=== PATIENT | male | born 1940 | race African-American/Black ===

== ENCOUNTER 2017-07-04 02:13 | Inpatient (IN) | payer MEDICARE, OTHER ==
[~2017-07-04] VITALS: Ht 172.7 cm; Wt 94.3 kg
[~2017-07-04 02:13] MED LIST: AMBIEN5 MG PO; BAYER CHEWABLE81 MG PO; CATAPRES0.3 MG PO; CRESTOR20 MG PO; FERROUS GLUCON324 MG PO; FOLIC ACID1 MG PO; LASIX40 MG PO; LASIX80 MG PO; LEVEMIR100 U/M1 SC; NIFEDIPINE ER90 MG PO; NOVOLIN R100 U/ML SQ; PROTONIX40 MG PO; TRANDATE300 MG PO; ZPAK PO; ZYLOPRIM100 MG PO; ZYRTEC10 MG PO
[2017-07-04] MEDS ORDERED: LANTUS INSULIN10 ML SC (03:15)
[2017-07-04] MEDS ORDERED: HUMULIN R100 U/ML (03:21)
[2017-07-04] MEDS ORDERED: HUMULIN R100 U/ML SC (03:22)
[2017-07-04] MEDS ORDERED: NORMODYNE / TR100 MG PO (03:23)
[2017-07-04 04:00] VITALS: BP 209/96
[2017-07-04 06:30] VITALS: BMI 32.9
[2017-07-04 08:29] VITALS: BP 222/102
[2017-07-04 08:33] LABS: BASOPHILS 0.2 % (0-2); EOSINOPHILS 1.4 % (0-7); HEMATOCRIT 33.2 % (42.0-54.0); HEMOGLOBIN 10.8 g/dL (13.5-17.5); IMMATURE GRANULOCYTES 0.8 % (0-5); LYMPHOCYTES 18.3 % (15-50); MCH 30.8 pg (26.0-34.0); MCHC 32.5 g/dL (31.0-37.0); MCV 94.6 fL (80.0-100.0); MEAN PLATELET VOLUME 10.4 fL (7.4-10.4); MONOCYTES 10.2 % (2-11); NEUTROPHILS 69.1 % (40-80); RBC 3.51 10x6/uL (4.20-6.10); RDW 14.7 % (11.5-14.5); WBC 4.9 10x3/uL (4.8-10.8)
[2017-07-04 08:34] LABS: PLATELET COUNT 175 10x3/uL (130-400)
[2017-07-04 08:49] LABS: ALBUMIN 3.5 g/dL (3.4-5.0); ANION GAP 19.2 mmol/L (8-16); BILIRUBIN - TOTAL 0.41 mg/dL (0.2-1.3); CALCIUM 8.4 mg/dL (8.5-10.1); CARBON DIOXIDE 22.8 mmol/L (21.0-32.0); CREATININE - SERUM 8.8 mg/dL (0.6-1.3); PROTEIN - SERUM 6.7 g/dL (6.4-8.2)
[2017-07-04 11:09] VITALS: BP 232/101
[2017-07-04 14:49] VITALS: BP 226/103
[2017-07-04 16:24] VITALS: BP 208/95
[2017-07-04 17:41] LABS: APPEARANCE HAZY (CLEAR); BILIRUBIN NEGATIVE (NEGATIVE); COLOR YELLOW (YELLOW); GLUCOSE 50 mg/dL (NEGATIVE); KETONE NEGATIVE (NEGATIVE); NITRITE NEGATIVE (NEGATIVE); PROTEIN 3+ mg/dL (NEGATIVE); SPECIFIC GRAVITY 1.005 (1.005-1.020); UROBILINOGEN NORMAL (NORMAL)
[2017-07-04 17:46] LABS: BACTERIA MANY /hpf (NONE SEEN); EPITHELIAL CELLS 0-5 /hpf (0-5); WHITE CELLS - URINE >50 /hpf (0-5)
[2017-07-04 20:30] VITALS: BP 184/75
[2017-07-05 00:30] VITALS: BP 151/74
[2017-07-05 04:00] VITALS: BP 142/55
[2017-07-05 05:36] LABS: BASOPHILS 0.2 % (0-2); EOSINOPHILS 3.3 % (0-7); HEMATOCRIT 28.4 % (42.0-54.0); IMMATURE GRANULOCYTES 0.4 % (0-5); LYMPHOCYTES 35.1 % (15-50); MCHC 31.7 g/dL (31.0-37.0); MCV 94.7 fL (80.0-100.0); MEAN PLATELET VOLUME 10.3 fL (7.4-10.4); MONOCYTES 11.8 % (2-11); NEUTROPHILS 49.2 % (40-80); RDW 14.6 % (11.5-14.5); WBC 4.6 10x3/uL (4.8-10.8)
[2017-07-05 05:37] LABS: PLATELET COUNT 114 10x3/uL (130-400)
[2017-07-05 06:00] LABS: ANION GAP 15.7 mmol/L (8-16); BILIRUBIN - TOTAL 0.35 mg/dL (0.2-1.3); CALCIUM 7.9 mg/dL (8.5-10.1); CARBON DIOXIDE 24.6 mmol/L (21.0-32.0); CREATININE - SERUM 10.9 mg/dL (0.6-1.3); MAGNESIUM - SERUM 1.5 mg/dL (1.8-2.4); PHOSPHOROUS 3.6 mg/dL (2.5-4.9); POTASSIUM - SERUM 4.3 mmol/L (3.5-5.1); PROTEIN - SERUM 6.5 g/dL (6.4-8.2)
[2017-07-05 07:50] VITALS: BP 157/75
[2017-07-05 11:47] VITALS: BP 174/73
[2017-07-05 12:39] VITALS: Ht 172.7 cm; Wt 94.3 kg
[2017-07-05 15:37] VITALS: BP 163/73
[2017-07-05 19:00] VITALS: BP 157/76
[2017-07-06 04:00] VITALS: BP 148/74
[2017-07-06 04:58] LABS: BASOPHILS 0.2 % (0-2); HEMATOCRIT 27.5 % (42.0-54.0); HEMOGLOBIN 8.7 g/dL (13.5-17.5); IMMATURE GRANULOCYTES 0.2 % (0-5); LYMPHOCYTES 32.5 % (15-50); MCH 30.5 pg (26.0-34.0); MCHC 31.6 g/dL (31.0-37.0); MCV 96.5 fL (80.0-100.0); MEAN PLATELET VOLUME 10.1 fL (7.4-10.4); MONOCYTES 12.6 % (2-11); NEUTROPHILS 48.5 % (40-80); RBC 2.85 10x6/uL (4.20-6.10); RDW 14.9 % (11.5-14.5); WBC 4.2 10x3/uL (4.8-10.8)
[2017-07-06 05:06] LABS: PLATELET COUNT 195 10x3/uL (130-400)
[2017-07-06 05:40] LABS: ALBUMIN 2.9 g/dL (3.4-5.0); ANION GAP 16.8 mmol/L (8-16); BILIRUBIN - TOTAL 0.43 mg/dL (0.2-1.3); CALCIUM 7.5 mg/dL (8.5-10.1); CARBON DIOXIDE 23.2 mmol/L (21.0-32.0); CREATININE - SERUM 12.8 mg/dL (0.6-1.3); PHOSPHOROUS 3.9 mg/dL (2.5-4.9); PROTEIN - SERUM 6.1 g/dL (6.4-8.2)
[2017-07-06 08:02] VITALS: BP 161/67
[2017-07-06 15:38] VITALS: BP 142/66
[2017-07-06 21:47] VITALS: BP 164/72
[2017-07-07 01:54] VITALS: BP 147/76
[2017-07-07 05:27] LABS: BASOPHILS 0.5 % (0-2); EOSINOPHILS 6.2 % (0-7); HEMATOCRIT 28.8 % (42.0-54.0); HEMOGLOBIN 9.3 g/dL (13.5-17.5); IMMATURE GRANULOCYTES 0.2 % (0-5); LYMPHOCYTES 32.9 % (15-50); MCH 31.1 pg (26.0-34.0); MCHC 32.3 g/dL (31.0-37.0); MCV 96.3 fL (80.0-100.0); MEAN PLATELET VOLUME 9.8 fL (7.4-10.4); MONOCYTES 13.4 % (2-11); NEUTROPHILS 46.8 % (40-80); PLATELET COUNT 209 10x3/uL (130-400); RBC 2.99 10x6/uL (4.20-6.10); RDW 14.7 % (11.5-14.5)
[2017-07-07 05:53] VITALS: BP 141/48
[2017-07-07 06:10] LABS: BILIRUBIN - TOTAL 0.43 mg/dL (0.2-1.3); CALCIUM 7.9 mg/dL (8.5-10.1); CARBON DIOXIDE 28.9 mmol/L (21.0-32.0); PHOSPHOROUS 3.9 mg/dL (2.5-4.9); PROTEIN - SERUM 6.5 g/dL (6.4-8.2)
[2017-07-07 06:22] LABS: ANION GAP 12.4 mmol/L (8-16); CREATININE - SERUM 9.4 mg/dL (0.6-1.3); POTASSIUM - SERUM 3.3 mmol/L (3.5-5.1)
[2017-07-07 08:11] VITALS: BP 147/67
[2017-07-07 11:44] VITALS: BP 132/78
[2017-07-07 15:24] VITALS: BP 135/84
[2017-07-07 19:00] VITALS: BP 170/64
[2017-07-08 04:52] VITALS: BP 157/64
[2017-07-08 05:45] LABS: ALBUMIN 3.2 g/dL (3.4-5.0); ANION GAP 15.2 mmol/L (8-16); BILIRUBIN - TOTAL 0.4 mg/dL (0.2-1.3); CALCIUM 7.6 mg/dL (8.5-10.1); CARBON DIOXIDE 26.2 mmol/L (21.0-32.0); CREATININE - SERUM 11.6 mg/dL (0.6-1.3); PHOSPHOROUS 4.2 mg/dL (2.5-4.9); POTASSIUM - SERUM 3.4 mmol/L (3.5-5.1); PROTEIN - SERUM 6.8 g/dL (6.4-8.2)
[2017-07-08 05:46] LABS: BASOPHILS 0.8 % (0-2); HEMATOCRIT 29.8 % (42.0-54.0); HEMOGLOBIN 9.8 g/dL (13.5-17.5); IMMATURE GRANULOCYTES 0.3 % (0-5); LYMPHOCYTES 32.2 % (15-50); MCH 31.1 pg (26.0-34.0); MCHC 32.9 g/dL (31.0-37.0); MCV 94.6 fL (80.0-100.0); MEAN PLATELET VOLUME 9.9 fL (7.4-10.4); MONOCYTES 17.5 % (2-11); NEUTROPHILS 42.2 % (40-80); PLATELET COUNT 226 10x3/uL (130-400); RBC 3.15 10x6/uL (4.20-6.10); RDW 14.5 % (11.5-14.5); WBC 3.9 10x3/uL (4.8-10.8)
[2017-07-08 08:19] VITALS: BP 162/78
[2017-07-08 15:44] VITALS: BP 158/82
[2017-07-08 20:53] VITALS: BP 146/69
[2017-07-09 02:35] VITALS: BP 138/71
[2017-07-09 06:08] VITALS: BP 148/67
[2017-07-09 06:28] LABS: BASOPHILS 0.6 % (0-2); EOSINOPHILS 3.4 % (0-7); HEMATOCRIT 30.9 % (42.0-54.0); HEMOGLOBIN 10.1 g/dL (13.5-17.5); IMMATURE GRANULOCYTES 0.2 % (0-5); LYMPHOCYTES 18.7 % (15-50); MCH 30.7 pg (26.0-34.0); MCHC 32.7 g/dL (31.0-37.0); MCV 93.9 fL (80.0-100.0); MEAN PLATELET VOLUME 9.6 fL (7.4-10.4); NEUTROPHILS 61.1 % (40-80); PLATELET COUNT 206 10x3/uL (130-400); RBC 3.29 10x6/uL (4.20-6.10); RDW 14.2 % (11.5-14.5); WBC 4.7 10x3/uL (4.8-10.8)
[2017-07-09 06:43] LABS: ANION GAP 14.9 mmol/L (8-16); BILIRUBIN - TOTAL 0.4 mg/dL (0.2-1.3); CALCIUM 7.8 mg/dL (8.5-10.1); CARBON DIOXIDE 27.6 mmol/L (21.0-32.0); PHOSPHOROUS 4.1 mg/dL (2.5-4.9); POTASSIUM - SERUM 3.5 mmol/L (3.5-5.1); PROTEIN - SERUM 6.9 g/dL (6.4-8.2)
[2017-07-09 06:44] LABS: CREATININE - SERUM 8.6 mg/dL (0.6-1.3)
[2017-07-09 07:51] VITALS: BP 144/69
[2017-07-09 15:30] VITALS: BP 142/66
[2017-07-09 19:00] VITALS: BP 189/81
[2017-07-10 04:00] VITALS: BP 186/77
[2017-07-10 07:02] LABS: BASOPHILS 1.1 % (0-2); EOSINOPHILS 6.1 % (0-7); HEMATOCRIT 29.7 % (42.0-54.0); HEMOGLOBIN 9.7 g/dL (13.5-17.5); IMMATURE GRANULOCYTES 0.2 % (0-5); LYMPHOCYTES 30.9 % (15-50); MCH 30.6 pg (26.0-34.0); MCHC 32.7 g/dL (31.0-37.0); MCV 93.7 fL (80.0-100.0); MEAN PLATELET VOLUME 9.9 fL (7.4-10.4); MONOCYTES 14.4 % (2-11); NEUTROPHILS 47.3 % (40-80); PLATELET COUNT 226 10x3/uL (130-400); RBC 3.17 10x6/uL (4.20-6.10); RDW 14.4 % (11.5-14.5); WBC 4.7 10x3/uL (4.8-10.8)
[2017-07-10 07:20] LABS: ANION GAP 18.3 mmol/L (8-16); BILIRUBIN - TOTAL 0.46 mg/dL (0.2-1.3); CALCIUM 7.5 mg/dL (8.5-10.1); CARBON DIOXIDE 25.1 mmol/L (21.0-32.0); PHOSPHOROUS 4.4 mg/dL (2.5-4.9); POTASSIUM - SERUM 3.4 mmol/L (3.5-5.1); PROTEIN - SERUM 6.8 g/dL (6.4-8.2)
[2017-07-10 07:24] LABS: CREATININE - SERUM 10.8 mg/dL (0.6-1.3)
[2017-07-10 09:50] VITALS: BP 168/66
[2017-07-10 15:58] VITALS: BP 175/75
[2017-07-10 20:40] VITALS: BP 172/74
[2017-07-11 00:15] VITALS: BP 156/69
[2017-07-11 05:09] VITALS: BP 157/73
[2017-07-11 07:06] LABS: BASOPHILS 0.9 % (0-2); EOSINOPHILS 3.4 % (0-7); HEMOGLOBIN 9.5 g/dL (13.5-17.5); IMMATURE GRANULOCYTES 0.2 % (0-5); LYMPHOCYTES 33.5 % (15-50); MCH 30.8 pg (26.0-34.0); MCHC 32.8 g/dL (31.0-37.0); MCV 94.2 fL (80.0-100.0); MEAN PLATELET VOLUME 9.9 fL (7.4-10.4); MONOCYTES 16.4 % (2-11); NEUTROPHILS 45.6 % (40-80); PLATELET COUNT 217 10x3/uL (130-400); RBC 3.08 10x6/uL (4.20-6.10); RDW 14.6 % (11.5-14.5); WBC 4.4 10x3/uL (4.8-10.8)
[2017-07-11 07:24] LABS: ANION GAP 13.7 mmol/L (8-16); BILIRUBIN - TOTAL 0.45 mg/dL (0.2-1.3); CALCIUM 7.8 mg/dL (8.5-10.1); CARBON DIOXIDE 28.8 mmol/L (21.0-32.0); CREATININE - SERUM 8.5 mg/dL (0.6-1.3); POTASSIUM - SERUM 3.5 mmol/L (3.5-5.1); PROTEIN - SERUM 6.2 g/dL (6.4-8.2)
[2017-07-11 07:41] VITALS: BP 158/75
[2017-07-11 11:37] VITALS: BP 151/68
[2017-07-11 15:49] VITALS: BP 158/62
[2017-07-11 20:58] VITALS: BP 159/70
[2017-07-12 01:12] VITALS: BP 162/67
[2017-07-12 05:58] VITALS: BP 143/66
[2017-07-12 06:57] LABS: BASOPHILS 1.4 % (0-2); EOSINOPHILS 5.1 % (0-7); HEMATOCRIT 29.3 % (42.0-54.0); HEMOGLOBIN 9.5 g/dL (13.5-17.5); IMMATURE GRANULOCYTES 0.2 % (0-5); LYMPHOCYTES 28.2 % (15-50); MCH 30.5 pg (26.0-34.0); MCHC 32.4 g/dL (31.0-37.0); MCV 94.2 fL (80.0-100.0); MEAN PLATELET VOLUME 10.2 fL (7.4-10.4); MONOCYTES 14.7 % (2-11); NEUTROPHILS 50.4 % (40-80); PLATELET COUNT 233 10x3/uL (130-400); RBC 3.11 10x6/uL (4.20-6.10); RDW 14.7 % (11.5-14.5); WBC 4.2 10x3/uL (4.8-10.8)
[2017-07-12 07:09] LABS: ALBUMIN 3.1 g/dL (3.4-5.0); ANION GAP 15.8 mmol/L (8-16); BILIRUBIN - TOTAL 0.49 mg/dL (0.2-1.3); CALCIUM 7.5 mg/dL (8.5-10.1); CARBON DIOXIDE 27.6 mmol/L (21.0-32.0); CREATININE - SERUM 10.5 mg/dL (0.6-1.3); POTASSIUM - SERUM 3.4 mmol/L (3.5-5.1); PROTEIN - SERUM 6.9 g/dL (6.4-8.2)
[2017-07-12 08:01] VITALS: BP 135/64
[2017-07-12 11:27] VITALS: BP 132/60
[2017-07-12] MEDS ORDERED: FLAGYL500 MG PO (13:33)
== END 2017-07-12 15:58 | disposition home or self-care (01) | DRG 391 ==
LOC: D.M2 02:13 → D.SDCHOLD 07-05 12:55 → D.M2 07-12 15:58
PROVIDERS: Internal Medicine
PROC: 5A1D70Z Performance of Urinary Filtration, Intermittent, Less than 6 Hours Per Day (ICD-10-PCS; principal; 2017-07-06)
DX: K52.9 Noninfective gastroenteritis and colitis, unspecified (principal); N18.6 End stage renal disease; I12.0 Hypertensive chronic kidney disease with stage 5 chronic kidney disease or end stage renal disease; N30.90 Cystitis, unspecified without hematuria; E11.22 Type 2 diabetes mellitus with diabetic chronic kidney disease; Z99.2 Dependence on renal dialysis; D63.1 Anemia in chronic kidney disease

== ENCOUNTER 2017-08-01 23:34 | Inpatient (IN) | payer MEDICARE, OTHER ==
[~2017-08-01] VITALS: Ht 172.7 cm; Wt 82.4 kg
[~2017-08-01 23:34] MED LIST changes: +FLAGYL500 MG PO; +HUMULIN R100 U/ML; +HUMULIN R100 U/ML SC; +LANTUS INSULIN10 ML SC; +NORMODYNE / TR100 MG PO
[2017-08-02] VITALS (7 sets, daily range): BP systolic 162–175; BP diastolic 62–80; Ht 172.7 cm; Wt 82.4 kg
[2017-08-02 04:33] LABS: BASOPHILS 0.5 % (0-2); EOSINOPHILS 4.1 % (0-7); HEMATOCRIT 34.3 % (42.0-54.0); HEMOGLOBIN 11.3 g/dL (13.5-17.5); IMMATURE GRANULOCYTES 0.3 % (0-5); LYMPHOCYTES 21.4 % (15-50); MCH 32.1 pg (26.0-34.0); MCHC 32.9 g/dL (31.0-37.0); MCV 97.4 fL (80.0-100.0); MEAN PLATELET VOLUME 10.6 fL (7.4-10.4); MONOCYTES 9.6 % (2-11); NEUTROPHILS 64.1 % (40-80); PLATELET COUNT 193 10x3/uL (130-400); RBC 3.52 10x6/uL (4.20-6.10); RDW 15.1 % (11.5-14.5); WBC 5.9 10x3/uL (4.8-10.8)
[2017-08-02 05:09] LABS: ALBUMIN 3.2 g/dL (3.4-5.0); ANION GAP 15.9 mmol/L (8-16); BILIRUBIN - TOTAL 0.6 mg/dL (0.2-1.3); CALCIUM 9.7 mg/dL (8.5-10.1); CARBON DIOXIDE 28.5 mmol/L (21.0-32.0); CREATININE - SERUM 10.7 mg/dL (0.6-1.3); POTASSIUM - SERUM 4.4 mmol/L (3.5-5.1); PROTEIN - SERUM 7.7 g/dL (6.4-8.2); TROPONIN-I 0.035 ng/mL (0.000-0.060)
[2017-08-02 12:52] LABS: TROPONIN-I 0.058 ng/mL (0.000-0.060)
[2017-08-02 20:31] LABS: TROPONIN-I 0.079 ng/mL (0.000-0.060)
[2017-08-03] VITALS: BP 142/66
[2017-08-03 04:00] VITALS: BP 164/62
[2017-08-03 06:23] LABS: BASOPHILS 0.1 % (0-2); EOSINOPHILS 3.5 % (0-7); HEMATOCRIT 36.8 % (42.0-54.0); HEMOGLOBIN 11.8 g/dL (13.5-17.5); IMMATURE GRANULOCYTES 0.3 % (0-5); LYMPHOCYTES 5.3 % (15-50); MCH 31.6 pg (26.0-34.0); MCHC 32.1 g/dL (31.0-37.0); MCV 98.7 fL (80.0-100.0); MEAN PLATELET VOLUME 10.7 fL (7.4-10.4); MONOCYTES 5.4 % (2-11); NEUTROPHILS 85.4 % (40-80); PLATELET COUNT 182 10x3/uL (130-400); RBC 3.73 10x6/uL (4.20-6.10); RDW 15.5 % (11.5-14.5)
[2017-08-03 06:26] LABS: WBC 9.6 10x3/uL (4.8-10.8)
[2017-08-03 06:35] LABS: INR 1.22 (0.85-1.17)
[2017-08-03 06:55] LABS: ANION GAP 19.4 mmol/L (8-16); BILIRUBIN - TOTAL 0.9 mg/dL (0.2-1.3); CALCIUM 9.1 mg/dL (8.5-10.1); CARBON DIOXIDE 24.6 mmol/L (21.0-32.0); PHOSPHOROUS 3.7 mg/dL (2.5-4.9); PROTEIN - SERUM 7.6 g/dL (6.4-8.2)
[2017-08-03 06:57] LABS: CREATININE - SERUM 13.4 mg/dL (0.6-1.3)
[2017-08-03 08:06] VITALS: BP 149/70
[2017-08-03 13:49] VITALS: BP 153/72
[2017-08-03 16:40] VITALS: BP 154/67
[2017-08-03 21:04] VITALS: BP 142/66
[2017-08-04 01:08] VITALS: BP 133/57
[2017-08-04 05:32] VITALS: BP 135/64
[2017-08-04 06:40] LABS: BASOPHILS 0.2 % (0-2); EOSINOPHILS 7.6 % (0-7); HEMATOCRIT 35.7 % (42.0-54.0); HEMOGLOBIN 11.4 g/dL (13.5-17.5); IMMATURE GRANULOCYTES 0.2 % (0-5); LYMPHOCYTES 10.7 % (15-50); MCH 31.7 pg (26.0-34.0); MCHC 31.9 g/dL (31.0-37.0); MCV 99.2 fL (80.0-100.0); MEAN PLATELET VOLUME 10.9 fL (7.4-10.4); NEUTROPHILS 74.3 % (40-80); PLATELET COUNT 195 10x3/uL (130-400); RDW 15.3 % (11.5-14.5); WBC 8.4 10x3/uL (4.8-10.8)
[2017-08-04 06:53] LABS: ANION GAP 19.8 mmol/L (8-16); CALCIUM 8.8 mg/dL (8.5-10.1); CARBON DIOXIDE 24.8 mmol/L (21.0-32.0); POTASSIUM - SERUM 4.6 mmol/L (3.5-5.1)
[2017-08-04 07:55] VITALS: BP 138/50
[2017-08-04 11:27] VITALS: BP 137/64
[2017-08-04 15:12] VITALS: BP 110/68
[2017-08-04 20:28] VITALS: BP 159/73
[2017-08-05 01:41] VITALS: BP 156/76
[2017-08-05 05:16] VITALS: BP 144/67
[2017-08-05 06:54] LABS: BASOPHILS 0.5 % (0-2); EOSINOPHILS 7.7 % (0-7); HEMATOCRIT 32.7 % (42.0-54.0); HEMOGLOBIN 10.8 g/dL (13.5-17.5); IMMATURE GRANULOCYTES 0.2 % (0-5); LYMPHOCYTES 21.5 % (15-50); MCH 31.8 pg (26.0-34.0); MEAN PLATELET VOLUME 11.2 fL (7.4-10.4); MONOCYTES 11.4 % (2-11); NEUTROPHILS 58.7 % (40-80); PLATELET COUNT 169 10x3/uL (130-400); WBC 6.3 10x3/uL (4.8-10.8)
[2017-08-05 06:55] LABS: MCV 96.2 fL (80.0-100.0)
[2017-08-05 06:59] LABS: CALCIUM 8.5 mg/dL (8.5-10.1); CARBON DIOXIDE 21.6 mmol/L (21.0-32.0); CREATININE - SERUM 15.9 mg/dL (0.6-1.3); PHOSPHOROUS 4.6 mg/dL (2.5-4.9); POTASSIUM - SERUM 4.6 mmol/L (3.5-5.1)
[2017-08-05 09:50] VITALS: BP 156/75
[2017-08-05 17:27] VITALS: BP 160/75
[2017-08-05 21:06] VITALS: BP 183/86
[2017-08-06 00:58] VITALS: BP 162/54
[2017-08-06 04:00] VITALS: BP 140/70
[2017-08-06 06:59] LABS: BASOPHILS 0.7 % (0-2); EOSINOPHILS 5.5 % (0-7); HEMATOCRIT 33.5 % (42.0-54.0); HEMOGLOBIN 11.1 g/dL (13.5-17.5); IMMATURE GRANULOCYTES 0.2 % (0-5); LYMPHOCYTES 31.3 % (15-50); MCH 31.6 pg (26.0-34.0); MCHC 33.1 g/dL (31.0-37.0); MCV 95.4 fL (80.0-100.0); MEAN PLATELET VOLUME 11.3 fL (7.4-10.4); MONOCYTES 10.6 % (2-11); NEUTROPHILS 51.7 % (40-80); PLATELET COUNT 175 10x3/uL (130-400); RBC 3.51 10x6/uL (4.20-6.10); RDW 14.7 % (11.5-14.5)
[2017-08-06 07:19] LABS: ANION GAP 18.6 mmol/L (8-16); CALCIUM 8.6 mg/dL (8.5-10.1); CARBON DIOXIDE 24.1 mmol/L (21.0-32.0); PHOSPHOROUS 3.7 mg/dL (2.5-4.9)
[2017-08-06 07:20] LABS: CREATININE - SERUM 10.1 mg/dL (0.6-1.3); POTASSIUM - SERUM 3.7 mmol/L (3.5-5.1)
[2017-08-06 07:23] LABS: WBC 4.4 10x3/uL (4.8-10.8)
[2017-08-06 08:48] VITALS: BP 130/55
[2017-08-06] MEDS ORDERED: CARAFATE1 G/10 ML PO (10:15)
[2017-08-06] MEDS ORDERED: LEVAQUIN250 MG PO (10:15)
[2017-08-06] MEDS ORDERED: PROTONIX40 MG PO (10:16)
[2017-08-06] MEDS ORDERED: KEPPRA XR500 MG PO (10:18)
[2017-08-06 11:38] VITALS: BP 166/70
== END 2017-08-06 15:33 | disposition home health service (06) | DRG 377 ==
LOC: D.M2 23:34
PROVIDERS: Internal Medicine; Internal Medicine Gastroenterology; Internal Medicine Nephrology
PROC: 5A1D70Z Performance of Urinary Filtration, Intermittent, Less than 6 Hours Per Day (ICD-10-PCS; principal; 2017-08-03 12:30)
PROC: 0DB58ZX Excision of Esophagus, Via Natural or Artificial Opening Endoscopic, Diagnostic (ICD-10-PCS; 2017-08-04)
PROC: 0DB78ZX Excision of Stomach, Pylorus, Via Natural or Artificial Opening Endoscopic, Diagnostic (ICD-10-PCS; 2017-08-04)
PROC: 0D758ZZ Dilation of Esophagus, Via Natural or Artificial Opening Endoscopic (ICD-10-PCS; 2017-08-04)
DX: K25.4 Chronic or unspecified gastric ulcer with hemorrhage (principal); N18.6 End stage renal disease; J18.9 Pneumonia, unspecified organism; I12.0 Hypertensive chronic kidney disease with stage 5 chronic kidney disease or end stage renal disease; E11.22 Type 2 diabetes mellitus with diabetic chronic kidney disease; Z99.2 Dependence on renal dialysis; R56.9 Unspecified convulsions; R13.10 Dysphagia, unspecified; K22.2 Esophageal obstruction; Z87.891 Personal history of nicotine dependence

== ENCOUNTER 2017-08-18 15:12 | Inpatient (IN) | payer MEDICARE, OTHER ==
[~2017-08-18] VITALS: Ht 172.7 cm; Wt 84.9 kg
--- NOTE | ~2017-08-18 | PN ---
PATIENT:KAREEM KOROMA MEDICAL RECORD: [id number] LOCATION:[facility] ADMISSION DATE: 08/18/17 PROGRESS NOTE DATE OF SERVICE: 08/24/2017 SUBJECTIVE: No new complaint. OBJECTIVE: The patient remains confused, but he is not exhibiting hallucinosis. Overall, he is much calmer. He appears to be tolerating medication well. On exam, mood is pleasant and euthymic. Affect is somewhat reserved. Speech is tangential. Content of thought is negative for overt psychosis. Sensorium is unchanged. ASSESSMENT: No change in diagnosis. PLAN: 1. Continue current medications. 2. Continue supportive therapy. TRANSINT:[id number] Voice Confirmation ID: [id number] DOCUMENT ID: [id number] DEMETRIA SCHULER III, MD at 0831 CC: [id number] DICTATION DATE: 08/24/17 1126 GOLD LEAF GILDER: 08/24/17 1202 ADM IN [address] [place] [address]
--- NOTE | ~2017-08-18 | PN ---
PATIENT:KAREEM KOROMA MEDICAL RECORD: [id number] LOCATION:[facility]l ADMISSION DATE: 08/18/17 PROGRESS NOTE DATE OF SERVICE: 08/25/2017 SUBJECTIVE: No new complaint is noted with the exception of the fact that the patient thinks that some people do not like him. OBJECTIVE: The patient did have a good visit with his family. He continues to have somewhat poor sleep. He is tolerating dialysis well. Staff report fairly good behavior. On exam, mood is slightly anxious and worried. Affect is bland. Speech is somewhat terse and low in volume. Content of thought shows very mild paranoid ideation. Sensorium shows no change. ASSESSMENT: No change in diagnosis. PLAN: 1. Increase trazodone to 100 mg at bedtime. 2. Maintain other medications. 3. Continue supportive therapy. TRANSINT:[id number] Voice Confirmation ID: [id number] DOCUMENT ID: [id number] DEMETRIA SCHULER III, MD at 1051 CC: [id number] DICTATION DATE: 08/25/17 1204 SURVEY ENGINEER: 08/25/17 1312 ADM IN [facility] [address] [id number]
--- NOTE | ~2017-08-18 | PN ---
PATIENT:KAREEM KOROMA MEDICAL RECORD: [id number] LOCATION:[facility]l ADMISSION DATE: 08/18/17 PROGRESS NOTE DATE OF SERVICE: 08/21/2017 SUBJECTIVE: The patient's case was discussed with staff. He has no new complaint. OBJECTIVE: The patient is paranoid and somatic. He is not sleeping well. Yesterday, he had dialysis and after half hour of dialysis became agitated and paranoid and it was discontinued. ASSESSMENT: No change in diagnoses. PLAN: Supportive and educational interventions were made. Long-term prognosis is guarded. I am going to treat the patient with low dose of trazodone to assist with sleep consolidation. TRANSINT:[id number] Voice Confirmation ID: [id number] DOCUMENT ID: [id number] RAPHAEL HERNANDEZ MD at 1844 CC: [id number] DICTATION DATE: 08/21/17 1101 HEAVY MACHINERY ASSEMBLER: 08/22/17 0037 ADM IN [facility] [address] [id number]
--- NOTE | ~2017-08-18 | PN ---
PATIENT:KAREEM KOROMA MEDICAL RECORD: [id number] LOCATION:[facility]l ADMISSION DATE: 08/18/17 PROGRESS NOTE DATE OF SERVICE: 08/23/2017 SUBJECTIVE: The patient's case was discussed with staff. He has no new complaint. OBJECTIVE: The patient is somewhat paranoid, but is allowing technicians to dialyze him. He is taking Haldol 2 mg a day. Although there has not been much improvement in his psychotic symptoms, he is tolerating this medicine well and at least he is more cooperative, so I am optimistic that it is having some beneficial effect and I am reluctant to more aggressively titrate it upward for fear of precipitating side effects. TRANSINT:[id number] Voice Confirmation ID: [id number] DOCUMENT ID: [id number] RAPHAEL HERNANDEZ MD at 1016 CC: [id number] DICTATION DATE: 08/23/17 190 SAW STRAIGHTENER: 08/24/17 0322 ADM IN [facility] [address] [place] [address]
--- NOTE | ~2017-08-18 | PN ---
PATIENT:KAREEM KOROMA MEDICAL RECORD: [id number] LOCATION:[facility] Morel ADMISSION DATE: 08/18/17 PROGRESS NOTE DATE OF SERVICE: 08/31/2017 SUBJECTIVE: The patient does not offer a new complaint. OBJECTIVE: The patient has continued to be variable in receiving his medications. At times, he refuses; and at times, he is compliant. He is noted to be considerably more drowsy over the last 48 hours. He did eat well last night, but not very well this morning. On exam, mood is euthymic. Affect is constricted. Speech is low in volume. Overall level of consciousness is somewhat obtunded. Content of thought is positive for nonspecific paranoid ideation. Sensorium shows no change. ASSESSMENT: No change in diagnosis. PLAN: 1. Reduce Risperdal to 0.25 mg twice a day. 2. Maintain other medications. 3. Continue supportive therapy. TRANSINT:[id number] Voice Confirmation ID: [id number] DOCUMENT ID: [id number] DEMETRIA SCHULER III, MD at 1017 CC: [id number] DICTATION DATE: 08/31/17 1029 LAND MANAGER: 08/31/17 1239 ADM IN [facility] [address] [place] [address]
--- NOTE | ~2017-08-18 | PN ---
PATIENT:KAREEM KOROMA MEDICAL RECORD: [id number] LOCATION:[facility]Y Morel ADMISSION DATE: 08/18/17 PROGRESS NOTE DATE OF SERVICE: 08/27/2017 SUBJECTIVE: The patient again states that "nobody likes me here." OBJECTIVE: Staff reports the patient continues to be paranoid. He frequently refuses medications. They also note that when the family is around, he portrays himself as being much more ill than he does at other times. On exam, the patient's mood is somewhat anxious and frightened. Affect is constricted. Speech is low in volume. Content of thought remains positive for paranoid ideation. Sensorium shows no change. ASSESSMENT: No change in diagnosis. PLAN: 1. Strongly encouraged to respond to and accept treatment. 2. Add Risperdal 0.5 mg b.i.d. for paranoid ideation. 3. Continue other medications. 4. Continue supportive therapy. TRANSINT:[id number] Voice Confirmation ID: [id number] DOCUMENT ID: [id number] DEMETRIA SCHULER III, MD at 0703 CC: [id number] DICTATION DATE: 08/27/17 1000 PLATEN GRINDER: 08/27/17 1112 ADM IN [facility] [address] [place] [address]
--- NOTE | ~2017-08-18 | PN ---
PATIENT:KAREEM KOROMA MEDICAL RECORD: [id number] LOCATION:LINDSAY Morel ADMISSION DATE: 08/18/17 PROGRESS NOTE DATE OF SERVICE: 09/01/2017 SUBJECTIVE: No new complaint. OBJECTIVE: The patient has continued to do well over the last 24 hours. No further agitation. He has been accepted by [facility] in [place]. On exam, mood is euthymic. Affect is bland. Speech is somewhat low in volume and rather terse. Content of thought focuses on somatic concerns only. Sensorium is unchanged. ASSESSMENT: No change in diagnosis. PLAN: 1. Continue current medication and other treatment plan. 2. Anticipate discharge tomorrow. TRANSINT:[id number] Voice Confirmation ID: [id number] DOCUMENT ID: [id number] DEMETRIA SCHULER III, MD at 2052 CC: [id number] DICTATION DATE: 09/01/17 1051 EDITOR FARM JOURNAL: 09/01/17 1119 ADM IN [address] [place] [address]
--- NOTE | ~2017-08-18 | PN ---
PATIENT:KAREEM KOROMA MEDICAL RECORD: [id number] LOCATION:LINDSAY Morel ADMISSION DATE: 08/18/17 PROGRESS NOTE DATE OF SERVICE: 08/26/2017 SUBJECTIVE: No new complaint. OBJECTIVE: The patient did sleep much better last night after receiving trazodone. He has been calm and cooperative this morning. On exam, mood is euthymic. Affect is reserved. Speech is low in volume. Content of thought negative for overt psychosis. Sensorium unchanged. ASSESSMENT: No change in diagnosis. PLAN: 1. Continue current medication. 2. Continue supportive therapy. TRANSINT:[id number] Voice Confirmation ID: [id number] DOCUMENT ID: [id number] DEMETRIA SCHULER III, MD at 0758 CC: [id number] DICTATION DATE: 08/26/17 1139 REUSE TECHNICIAN: 08/26/17 1155 ADM IN [facility] [address] [place] [address]
--- NOTE | ~2017-08-18 | PSY ---
PATIENT NAME:KAREEM KOROMA MEDICAL RECORD: [id number] : 44 LOCATION:[facility]SAY Morel1 ADMISSION DATE: 08/18/17 ACCOUNT: [id number] PSYCHIATRIC EVALUATION DATE OF EVALUATION: 08/19/17 Initial Psychiatric Workup IDENTIFYING DATA: This is the first [facility] admission and as far as can be determined, the first psychiatric admission in his lifetime for this 76-year-old -English male. HISTORY OF PRESENT ILLNESS: This patient was transferred from the Emergency Department at [facility] [place] Available history at that time indicated that the patient had been refusing his medications and was showing severe confusion and agitation. He was having active auditory and visual hallucinations according to family and was extremely paranoid. At the time of the admission here, the patient continued to give evidence of hallucinations. He stated that he saw the devil and was yelling for the devil to get away from him. The patient did receive p.r.n. haloperidol for control of his agitation. As far as can be determined, there has not been a previous psychiatric hospitalization. There is some mention of dementia in the previous medical record, but this is not well documented. The patient has not been taking any kind of routine psychiatric medication according to the current medical record. PAST MEDICAL HISTORY: Significant for multiple medical problems including end-stage renal disease. The patient is on hemodialysis. He also has chronic hypertension, type 2 diabetes, and coronary artery disease. He has been admitted recently for chest pain. He also had a recent bout of colitis and coffee-ground emesis. He was hospitalized at [place], both in June and in July of this year under the care of Dr. Farr. MEDICATION: At the time of admission included Procardia XL 90 mg twice a day, Keppra XR 500 mg twice a day (the patient did have a seizure during dialysis on his last admission and subsequently Keppra was started. CT scan of the head was unremarkable), Normodyne 100 mg b.i.d., Lantus insulin 10 units b.i.d., folic acid 1 mg daily, calcium acetate 667 mg 3 times a day, Carafate, Protonix 40 mg twice a day, Catapres 0.3 mg t.i.d. FAMILY HISTORY: Negative for psychiatric illness. Both parents did have diabetes. SOCIAL HISTORY: No history of drug or alcohol abuse. The patient is a nonsmoker. He is . He has been a [facility] resident in the past evidently, but it is not certain that he is a resident of a fpc at the present time. ALLERGIES: INCLUDE COLCHICINE. MENTAL STATUS: On exam this morning, the patient is very pleasant. He is oriented to person and the fact that he is in [place] at [facility]. He is not correctly oriented as to time. Affect is well controlled. Speech is rather terse and very low in volume. Content of thought is positive for recent psychotic symptoms, but hallucinosis is not evident at the time of the examination. Sensorium testing as described above. Remote recall is fair. Intermediate and short-term recall as well as concentration are significantly impaired. DIAGNOSTIC IMPRESSION: AXIS I: Acute encephalopathy -- rule out dementia. AXIS II: No diagnosis. AXIS III: Coronary artery disease, hypertension, end-stage renal disease, type 2 diabetes, history of gout, history of GI bleed. AXIS IV: Severe. AXIS V: 38. PLAN: 1. The patient is admitted for further medical and psychiatric workup. Nephrology will be consulted to continue dialysis. 2. Medication adjustment as indicated. 3. Daily supportive therapy. TRANSINT:[id number] Voice Confirmation ID: [id number] DOCUMENT ID: [id number] DEMETRIA SCHULER III, MD at 0508 CC: [id number] DICTATION DATE: 08/19/17 1204 PRODUCT DEVELOPMENT SPECIALIST: 08/19/17 1225 ADM IN [address] [place] [address]
--- NOTE | ~2017-08-18 | DS ---
PATIENT:KAREEM KOROMA :44 MEDICAL RECORD: [id number] DISCHARGE SUMMARY ADMISSION DATE: 08/18/17 DISCHARGE DATE: 09/02/17 DATE OF ADMISSION: 08/18/2017. DATE OF DISCHARGE: 09/02/2017. HISTORY: First Detention admission for this 76-year-old -Hungarian male. The patient was referred from [place]. He has diabetes and is on hemodialysis. The patient had been showing increasing confusion and agitation as well as paranoid delusion and visual hallucinations. He had been uncooperative with his medical treatment. For further details, please see previously dictated history. COURSE IN THE HOSPITAL: The patient was seen in consultation by Dr. Lawson, she noted the presence of end-stage renal disease, diabetes, hypertension, congestive heart failure, and diabetic neuropathy. Following admission, the patient was placed on a routine hemodialysis and followed by the nephrology service here. From a psychiatric standpoint, he was started on Risperdal, dosage was adjusted to 0.25 mg twice a day. He was also given trazodone 100 mg at bedtime for sleep. The patient showed a considerable amount of paranoia initially. He frequently refused to eat and stated that people did not like him. However, as the hospitalization progressed, the patient showed a significant improvement in these symptoms. He was stable medically at the time of discharge. Arrangements were made for transfer to [facility]. FINAL DIAGNOSES: AXIS I: Dementia of the Alzheimer's type. AXIS II: No diagnosis. AXIS III: Type 2 diabetes, end-stage renal disease, coronary artery disease, hypertension, past history of GI bleed and gout. AXIS IV: Moderate. AXIS V: 40. PLAN: 1. The patient is discharged on current medication. 2. Diet and activities as tolerated. 3. Follow up through primary care physician at the care home. TRANSINT:[id number] Voice Confirmation ID: [id number] DOCUMENT ID: [id number] DEMETRIA SCHULER III, MD at 1013 CC: [id number] DICTATION DATE: 09/02/17 1212 TRUER PINION AND WHEEL: 09/02/17 1324 DIS IN 09/02/17 [place] [address]
--- NOTE | ~2017-08-18 | PN ---
PATIENT:KAREEM KOROMA MEDICAL RECORD: [id number] LOCATION:LINDSAY Morel ADMISSION DATE: 08/18/17 PROGRESS NOTE DATE OF SERVICE: 08/20/2017 SUBJECTIVE: No new complaint. OBJECTIVE: Staff reports the patient continues to make peculiar statements and does show agitation. He did receive p.r.n. of Haldol and Ativan at 3:00 a.m. this morning. He continues to give evidence of visual hallucinations in the evening. On exam today, mood is euthymic, affect is rather reserved. Speech is soft spoken and terse. Content of thought as noted above. Sensorium unchanged. ASSESSMENT: No change in diagnosis. PLAN: 1. Maintain current medications for now. 2. Continue supportive therapy. TRANSINT:[id number] Voice Confirmation ID: [id number] DOCUMENT ID: [id number] DEMETRIA SCHULER III, MD at 1037 CC: [id number] DICTATION DATE: 08/20/17 1108 CUPROUS CHLORIDE HELPER: 08/20/17 1301 ADM IN [id number] [place] [address]
--- NOTE | ~2017-08-18 | PN ---
PATIENT:KAREEM KOROMA MEDICAL RECORD: [id number] LOCATION:LINDSAY Morel ADMISSION DATE: 08/18/17 PROGRESS NOTE DATE OF SERVICE: 08/30/2017 SUBJECTIVE: No new complaint. OBJECTIVE: Staff report the patient has continued to be noncompliant with medication. He is quite paranoid about eating. He states he thinks that his food is being poisoned. He has been refusing some meals, although when packaged food is opened directly in front of them, he will eat. On exam, the patient is rather sleepy this morning. He evidently did not sleep well last night. Mood is euthymic. Affect is very constricted. Speech is low in volume and rather terse. Content of thought is positive for paranoid delusional ideation. Sensorium shows no change. ASSESSMENT: No change in diagnosis. PLAN: 1. We will continue current treatment plan and encourage the patient to receive his medications as well as begin eating. We will try a simpler approach by staff so that the patient's apprehension about eating will be lessened. 2. Continue supportive therapy. TRANSINT:[id number] Voice Confirmation ID: [id number] DOCUMENT ID: [id number] DEMETRIA SCHULER III, MD at 0909 CC: [id number] DICTATION DATE: 08/30/17 1053 COMPTOMETRIST: 08/30/17 1259 ADM IN [address] [place] [address]
[~2017-08-18 15:12] MED LIST changes: +CARAFATE1 G/10 ML PO; +KEPPRA XR500 MG PO; +LEVAQUIN250 MG PO
[2017-08-18 19:28] LABS: BASOPHILS 0.9 % (0-2); EOSINOPHILS 3.8 % (0-7); HEMATOCRIT 33.7 % (42.0-54.0); HEMOGLOBIN 10.9 g/dL (13.5-17.5); IMMATURE GRANULOCYTES 0.2 % (0-5); LYMPHOCYTES 33.9 % (15-50); MCH 31.5 pg (26.0-34.0); MCHC 32.3 g/dL (31.0-37.0); MCV 97.4 fL (80.0-100.0); MEAN PLATELET VOLUME 10.2 fL (7.4-10.4); MONOCYTES 12.1 % (2-11); NEUTROPHILS 49.1 % (40-80); PLATELET COUNT 193 10x3/uL (130-400); RBC 3.46 10x6/uL (4.20-6.10); RDW 14.9 % (11.5-14.5); WBC 4.2 10x3/uL (4.8-10.8)
[2017-08-18 19:53] LABS: ALBUMIN 3.1 g/dL (3.4-5.0); ANION GAP 14.6 mmol/L (8-16); BILIRUBIN - TOTAL 0.31 mg/dL (0.2-1.3); CALCIUM 9.1 mg/dL (8.5-10.1); CARBON DIOXIDE 28.4 mmol/L (21.0-32.0); CHOL - HDL RATIO 3.2 ratio (2.3-4.9); CREATININE - SERUM 9.4 mg/dL (0.6-1.3); LDL-HDL RATIO 1.6 ratio (1.5-3.5); PROTEIN - SERUM 6.9 g/dL (6.4-8.2); THYROID STIMULATING HORMONE 3.04 uIU/mL (0.36-3.74)
[2017-08-18] MEDS ORDERED: PHOSLO667 MG PO (20:42)
[2017-08-18 20:50] VITALS: BP 151/76
[2017-08-19 08:38] VITALS: BP 159/87
[2017-08-19 14:37] VITALS: BP 159/89; BMI 28.0
[2017-08-19 22:50] VITALS: BP 146/71
[2017-08-20 06:15] LABS: RAPID PLASMA REAGIN Non Reactive (Non Reactive)
[2017-08-20 07:27] LABS: VITAMIN D 25 HYDROXY 9.6 ng/mL (30.0-100.0)
[2017-08-20 08:18] LABS: FOLATE (FOLIC ACID) - SERUM >20.0 ng/mL (>3.0)
[2017-08-20 10:00] LABS: APPEARANCE SLT CLOUDY (CLEAR); BILIRUBIN NEGATIVE (NEGATIVE); COLOR YELLOW (YELLOW); GLUCOSE 50 mg/dL (NEGATIVE); KETONE NEGATIVE (NEGATIVE); NITRITE NEGATIVE (NEGATIVE); PROTEIN 3+ mg/dL (NEGATIVE); UROBILINOGEN NORMAL (NORMAL)
[2017-08-20 10:01] LABS: BACTERIA MANY /hpf (NONE SEEN); EPITHELIAL CELLS 0-5 /hpf (0-5); MUCUS <1+ /lpf (NONE SEEN); WHITE CELLS - URINE 25-50 /hpf (0-5)
[2017-08-21 09:41] VITALS: BP 146/58
[2017-08-21 20:49] VITALS: BP 151/61
[2017-08-22 14:23] VITALS: BP 138/69
[2017-08-22 19:25] VITALS: BP 186/91
[2017-08-23 20:09] VITALS: BP 172/73
[2017-08-24 07:00] VITALS: BP 130/98
[2017-08-24 19:57] VITALS: BP 157/87
[2017-08-25 07:27] VITALS: BP 140/88
[2017-08-25 13:38] VITALS: Ht 172.7 cm; Wt 84.9 kg
[2017-08-25 21:29] VITALS: BP 108/67
[2017-08-26 10:04] VITALS: BP 133/76
[2017-08-26 20:52] VITALS: BP 130/70
[2017-08-27 07:56] VITALS: BP 127/76
[2017-08-27 20:32] VITALS: BP 153/77
[2017-08-28 07:44] VITALS: BP 122/82
[2017-08-28 19:19] VITALS: BP 132/65
[2017-08-29 07:00] VITALS: BP 139/78
[2017-08-29 19:04] VITALS: BP 179/91
[2017-08-30 07:00] VITALS: BP 151/72
[2017-08-30 19:25] VITALS: BP 105/76
[2017-08-31 07:59] VITALS: BP 120/68
[2017-08-31 22:00] VITALS: BP 117/59
[2017-09-01 08:17] VITALS: BP 120/58
[2017-09-01] MEDS ORDERED: Vitamin D PO (11:18)
[2017-09-01] MEDS ORDERED: RISPERDAL SOL1 MG/ML PO (11:18)
[2017-09-01] MEDS ORDERED: TRAZODONE HCL50 MG PO (11:18)
[2017-09-01 19:38] VITALS: BP 131/75
[2017-09-02 06:31] LABS: BASOPHILS 0.2 % (0-2); EOSINOPHILS 4.7 % (0-7); HEMATOCRIT 33.1 % (42.0-54.0); IMMATURE GRANULOCYTES 0.2 % (0-5); LYMPHOCYTES 37.2 % (15-50); MCH 31.4 pg (26.0-34.0); MCHC 33.2 g/dL (31.0-37.0); MCV 94.6 fL (80.0-100.0); MEAN PLATELET VOLUME 11.1 fL (7.4-10.4); MONOCYTES 8.4 % (2-11); NEUTROPHILS 49.3 % (40-80); PLATELET COUNT 172 10x3/uL (130-400); WBC 5.1 10x3/uL (4.8-10.8)
[2017-09-02 06:52] LABS: ANION GAP 16.9 mmol/L (8-16); CALCIUM 9.8 mg/dL (8.5-10.1); CARBON DIOXIDE 28.4 mmol/L (21.0-32.0); CREATININE - SERUM 10.9 mg/dL (0.6-1.3); POTASSIUM - SERUM 4.3 mmol/L (3.5-5.1)
[2017-09-02 08:50] VITALS: BP 109/83
== END 2017-09-02 10:59 | DRG 56 ==
LOC: D.PSYCH 15:12
PROVIDERS: Internal Medicine Nephrology; Psychiatry & Neurology Psychiatry
DX: G30.9 Alzheimer's disease, unspecified (principal); N18.6 End stage renal disease; G93.40 Encephalopathy, unspecified; F02.81 Dementia in other diseases classified elsewhere, unspecified severity, with behavioral disturbance; I13.2 Hypertensive heart and chronic kidney disease with heart failure and with stage 5 chronic kidney disease, or end stage renal disease; E11.22 Type 2 diabetes mellitus with diabetic chronic kidney disease; I50.9 Heart failure, unspecified; E11.40 Type 2 diabetes mellitus with diabetic neuropathy, unspecified; I25.10 Atherosclerotic heart disease of native coronary artery without angina pectoris; K21.9 Gastro-esophageal reflux disease without esophagitis; G40.909 Epilepsy, unspecified, not intractable, without status epilepticus; M10.9 Gout, unspecified; E55.9 Vitamin D deficiency, unspecified

== ENCOUNTER → 2017-12-31 12:33 | Outpatient (CLI) | payer MEDICARE, OTHER ==
[2017-08-25 13:38] VITALS: BMI 28.4
[~2017-12-31 12:33] MED LIST changes: +PHOSLO667 MG PO; +RISPERDAL SOL1 MG/ML PO; +TRAZODONE HCL50 MG PO; +Vitamin D PO
== END | disposition home or self-care (01) ==
LOC: D.RAD 12:33
DX: K22.4 Dyskinesia of esophagus (principal); R13.10 Dysphagia, unspecified

== ENCOUNTER 2018-10-08 03:55 | Inpatient (IN) | payer MEDICARE, BC ==
[2018-10-08] VITALS (39 sets, daily range): BP systolic 131–230; BP diastolic 65–136; Ht 172.7 cm; Wt 84.1 kg
[~2018-10-08] VITALS: Ht 172.7 cm; Wt 84.1 kg
[2018-10-08] MEDS ORDERED: ZYLOPRIM100 MG PO (04:02)
[2018-10-08] MEDS ORDERED: LIPITOR40 MG PO (04:02)
[2018-10-08] MEDS ORDERED: ISOSORBIDE MONO30 M1 PO (04:08)
[2018-10-08] MEDS ORDERED: LONITEN10 MG PO (04:12)
[2018-10-08] MEDS ORDERED: ATIVAN1 MG PO (04:12)
--- NOTE | 2018-10-08 05:51 | NUR ---
SPOKE WITH DR CHEN REGARDING BP 208/100. NEW ORDERS FOR CLONIDINE 0.2MG Q 6 H PRN AND CONT TO MONITOR
--- NOTE | 2018-10-08 06:18 | NUR ---
PT RECEIVED TO ROOM 2308 VIA STRETCHER ACCOMPANIED BY ER NURSE, ICU MONITOR ESTABLISHED, SR ON MONITOR, WILL MONITOR.
--- NOTE | 2018-10-08 06:39 | NUR ---
CLONIDINE 0.2 ADMINISTERED PO PER MD ORDER FOR SBP OF 212. WILL MONITOR.
[2018-10-08 07:02] LABS: CREATINE KINASE 551 UL (21-232); MAGNESIUM - SERUM 2.2 mg/dL (1.8-2.4); PRO BNP 19925 pg/mL (0-450)
[2018-10-08 07:03] LABS: TROPONIN-I 0.294 ng/mL (0.000-0.060)
[2018-10-08 07:27] LABS: CKMB 6.8 U/L (0.0-3.6)
--- NOTE | 2018-10-08 07:31 | NUR ---
DR CHEN NOTIFIED OF PBNP, TROPONIN, AND PERSISTENT ELEVATED BP. ORDERS RECEIVED.
--- NOTE | 2018-10-08 08:11 | NUR ---
AWAKES EASILY TO VERBAL STIMULI SKIN WARM AND DRY. DENIES PAIN NO DISTRESS. IV RIGHT HAND WITHOUT REDNESS OR SWELLING. LEFT LOWER ARM FISTULA WITH GOOD BRUIT AND THRILL.
--- NOTE | 2018-10-08 08:15 | NUR ---
CARDENE GTT STARTED RIGHT HAND FOR ELEVATED BLOOD PRESSURE SYS GREATHER THAN 200
--- NOTE | 2018-10-08 09:00 | NUR ---
REPOSTIONED PATIENT TURNING SELF WHEN ASKED TOO. COOPERATIVE. NOT ABLE TO ANSWER QUESTIONS. SLEEPING ALOT
--- NOTE | 2018-10-08 11:00 | NUR ---
REPOSITIONED ON BACK FOR LUNCH.
--- NOTE | 2018-10-08 12:00 | NUR ---
ATE FAIR AT LUNCH. WEANING CARDEAN GTT. SLEEPY. AWAKES EASILY TO VERBAL STIMULI
--- NOTE | 2018-10-08 13:50 | NUR ---
DR. CHEN HERE. STATES PATIENT CAN GO TO FLOOR. PLAN FOR DIALYSIS TODAY
--- NOTE | 2018-10-08 14:05 | NUR ---
TO DIALYSIS UNIT PER BED.
--- NOTE | 2018-10-08 17:24 | NUR ---
CALLED REVIEWED MEDS WITH HER. UPDATE GIVEN ON PATEINT. CURRENT PHONE NUMBER [phone].
--- NOTE | 2018-10-08 18:38 | NUR ---
RETURNED TO ROOM FROM DIALYSIS. AWAKES EASILY TO VERBAL STIMULI SKIN WARM AND DRY. NO DISTRESS. LEFT LOWER ARM BAND AIDS INTACT. PUSHES SELF UP IN BED AND TURNS SELF FROM SIDE. NO SKIN BREAKDOWN. MONITOR SR. DENIES PAIN. RIGHT HAND IV PATENT. DINNER TRAY SERVED FEEDING SELF
--- NOTE | 2018-10-08 19:10 | NUR ---
SHIFT ASSESSMENT COMPLETED, PATIENT STATED HE IS ONLY A LITTLE NAUSEAOUS. NO PAIN. AAO X3 - SEE FLOWSHEET FOR FULL ASSESSMENT, VSS CPOC
--- NOTE | 2018-10-08 21:32 | NUR ---
PATIENT RECEIVED HS MEDICATIONS AND INSULIN AT THIS TIME, DENIES NEEDS VSS CPOC
--- NOTE | 2018-10-08 22:38 | NUR ---
called report to barry mccoy rn
[2018-10-09 00:30] VITALS: BP 104/41
[2018-10-09 04:30] VITALS: BP 131/68
--- NOTE | 2018-10-09 07:00 | NUR ---
RECEIVED REPORT. ASSUMED CARE OF PATIENT. CALL LIGHT WITHIN REACH. PATIENT LYING IN BED WITH EYES CLOSED, EASILY AROUSED. RESP EVEN AND UNLABORED. NO DISTRESS. DENIES NEEDS AT THIS TIME.
[2018-10-09 08:07] VITALS: BP 130/55
--- NOTE | 2018-10-09 08:51 | NUR ---
CALLED PHARMACY AND SPOKE WITH JOSE TO REQUEST LANTUS SOLOSTAR PEN FOR PATIENT. INFORMED JOSE THIS TOXICOLOGY SUPERVISOR ALREADY CALLED ICU WHERE THE PATIENT WAS TRANSFERRED FROM AND ICU DOES NOT HAVE A SOLOSTAR PEN FOR PATIENT ON THEIR UNIT.
--- NOTE | 2018-10-09 09:08 | NUR ---
FSBS 77 AND PATIENT HAS JUST COMPLETED EATING FULL BREAKFAST TRAY. LANTUS NOT ADMINISTERED.
--- NOTE | 2018-10-09 12:05 | NUR ---
ASSISTED PATIENT TO SIT TO SIDE OF BED. PATIENT CONSUMING NOON MEAL AT THIS TIME. NO DISTRESS.
--- NOTE | 2018-10-09 12:20 | NUR ---
20 GAUGE IV REMOVED FROM RIGHT HAND. CATHETER TIP INTACT. NO BLEEDING FROM SITE. 2X2 GAUZE APPLIED AND SECURED WITH BANDAID. TOELRATED IV REMOVAL WELL PATIENT IS BEING DISCHARGED TO HOME WITH HIS SON. RIVET STICKER REMOVED AND RETURNED TO RESISTOR TESTING MACHINE OPERATOR.
--- NOTE | 2018-10-09 12:40 | NUR ---
DISCHARGE INSTRUCTIONS PROVIDED TO PATIENT AND HIS SON. SON VERBALZIED UNDERSTANDING OF ALL INSTRUCTIONS PROVIDED. SON AND PATIENTS CARE FOR PATIENT AT HOME.
--- NOTE | 2018-10-09 12:45 | NUR ---
PATIENT LEFT UNIT IN WHEELCHAIR WITH ALL PERSONAL BELONGINGS. PATIENT IN NO DISTRESS UPON LEAVING UNIT. PATIENT DISCHARGED TO HOME WITH HIS SON.
--- NOTE | 2018-10-10 08:20 | MORECARE ---
CASE MANAGEMENT DISCHARGE SUMMARY PATIENT: KAREEM KOROMA UNIT: [id number] ADM DATE: 10/08/18 AGE: 77 : 42 SEX: M ROOM/BED: D.2110 AUTHOR: [place] PHYSICIAN: REFERRING PHYSICIAN: KIKE CHEN MD DATE OF SERVICE: 10/10/18 Discharge Plan Patient Name: KAREEM KOROMA Facility: [facility]:[place] : 1940 Planned Disposition: Home Anticipated Discharge Date: 10/09/18 Discharge Date: 10/09/2018 Expected LOS: 1 Initial Reviewer: [email or web address] Initial Review Date: 10/10/2018 Generated: 10/10/18 9:19 am Patient Name: KAREEM KOROMA Page [phone] at 0820 All edits/amendments must be made on the electronic document DICTATION DATE: 10/10/18818 COTTON GRADER: ANGELITO 10/10/18818 RPT#: [id number] DC DATE:10/09/18 STATUS: DIS IN [facility] [address] [place] [address] END OF REPORT
== END 2018-10-09 12:45 | disposition home or self-care (01) | DRG 304 ==
LOC: D.ER 03:55 → D.M2 04:49 → D.ICU 06:03 → D.M2 23:02
PROVIDERS: Emergency Medicine; ADMIT Internal Medicine; ATTEND Internal Medicine
PROC: 5A1D70Z Performance of Urinary Filtration, Intermittent, Less than 6 Hours Per Day (ICD-10-PCS; principal; 2018-10-08)
DX: I16.9 Hypertensive crisis, unspecified (principal); N18.6 End stage renal disease; I13.2 Hypertensive heart and chronic kidney disease with heart failure and with stage 5 chronic kidney disease, or end stage renal disease; I50.9 Heart failure, unspecified; Z99.2 Dependence on renal dialysis; E11.22 Type 2 diabetes mellitus with diabetic chronic kidney disease; F03.90 Unspecified dementia, unspecified severity, without behavioral disturbance, psychotic disturbance, mood disturbance, and anxiety; I25.10 Atherosclerotic heart disease of native coronary artery without angina pectoris; F41.9 Anxiety disorder, unspecified

== ENCOUNTER 2018-10-12 23:10 | Inpatient (IN) | payer MEDICARE, BC ==
[~2018-10-12] VITALS: Ht 172.7 cm; Wt 78.6 kg
[~2018-10-12 23:10] MED LIST changes: +ATIVAN1 MG PO; +ISOSORBIDE MONO30 M1 PO; +LIPITOR40 MG PO; +LONITEN10 MG PO
[2018-10-13] VITALS (57 sets, daily range): BP systolic 117–199; BP diastolic 54–105; Ht 172.7 cm; Wt 78.6 kg
[2018-10-13 01:03] LABS: BASOPHILS 0.5 % (0-2); EOSINOPHILS 2.6 % (0-7); HEMATOCRIT 36.2 % (42.0-54.0); HEMOGLOBIN 12.6 g/dL (13.5-17.5); IMMATURE GRANULOCYTES 0.2 % (0-5); LYMPHOCYTES 33.5 % (15-50); MCHC 34.8 g/dL (31.0-37.0); MCV 89.2 fL (80.0-100.0); MEAN PLATELET VOLUME 9.7 fL (7.4-10.4); MONOCYTES 4.9 % (2-11); NEUTROPHILS 58.3 % (40-80); PLATELET COUNT 149 10x3/uL (130-400); RBC 4.06 10x6/uL (4.20-6.10); RDW 14.8 % (11.5-14.5); WBC 5.7 10x3/uL (4.8-10.8)
--- NOTE | 2018-10-13 01:05 | NUR ---
REC'D PT FROM RD VIA STRETCHER, ACCOM BY ED NURSES, TRANSF TO ICU BED WITHOUT DIFFIC. PRINCIPAL PRODUCT MANAGER ATTACHED. REPOSITIONED FOR COMFORT, SBP TO 195S, TITRATE CARDENE TO 7.5MG/ HR PER ORDER TO LOWER SBP. HISTORY AND ADMISSION ASSESSMENT COMPLETED. WILL CONT TO MONITOR.
[2018-10-13 01:16] LABS: ALBUMIN 4.1 g/dL (3.4-5.0); ANION GAP 25.4 mmol/L (8-16); BILIRUBIN - TOTAL 0.51 mg/dL (0.2-1.3); CALCIUM 8.9 mg/dL (8.5-10.1); CARBON DIOXIDE 23.4 mmol/L (21.0-32.0); CREATININE - SERUM 18.4 mg/dL (0.6-1.3); POTASSIUM - SERUM 5.8 mmol/L (3.5-5.1); PROTEIN - SERUM 8.1 g/dL (6.4-8.2)
--- NOTE | 2018-10-13 01:30 | NUR ---
DIALYSIS NURSE HERE. HD WILL START. CONT TO MONITOR.
--- NOTE | 2018-10-13 03:00 | NUR ---
REASSESSMENT COMPLETED PER FLOWSHEETS. NO ACUTE CHANGES NOTED IN PT'S STATUS AT THIS TIME. SR ON CM. HD CONT WITHOUT DIFFIC. PT FRANCISCO J WELL. CONT TO MONITOR.
--- NOTE | 2018-10-13 08:30 | NUR ---
SHIFT ASSESSMENT COMPLETED. DR BALLARD HAS BEEN BY TO SEE PATIENT. BREAKFAST TRAY PROVIDED.
--- NOTE | 2018-10-13 12:39 | NUR ---
PT LUNCH TRAY HASE BEEN PROVIDED. DENIES ANY ADDITIONAL NEEDS. CALL LIGHT IN REACH.
--- NOTE | 2018-10-13 13:03 | NUR ---
SON LEAH KOROMA CALLED TO CHECK ON PATIENT. NO PASSWORD SET UP. PT GAVE PERMISSION FOR ME TO SPEAK WITH THE SON. LET HIM KNOW PT WAS GIVEN DIALYSIS TREATMENT EARLY THIS MORNING. WILL LIKELY STAY IN ICU TODAY AND COULD POSSIBLY BE MOVED OUT TO MEDICAL FLOOR TOMORROW OR NEXT DAY. SON SAYS HE LIVES WITH HIS PARENTS AND THAT HIS MOM IS THE PRIMARY SLASHER HAND FOR THE PATIENT, BUT "SHE HAS A LOT OF STUFF GOING ON LATELY". PT IS USUALLY TAKEN AND PICKED UP FROM DIALYSIS TREATMENTS BY HIS BROTHER. SON SAYS HE IS LOOKING INTO BECOMING POWER OF VOCATIONAL INSTRUCTOR FOR PATIENT. HE CAN BE REACHED AT [phone]
--- NOTE | 2018-10-13 18:30 | NUR ---
PT HAD BOWEL MOVEMENT. LARGE ROUND BALLS OF STOOL WITH SOME SMALL SMEARS OF BLOOD NOTED. PT C/O DIFFICULTY HAVING BOWEL MOVEMENT.
--- NOTE | 2018-10-13 21:00 | NUR ---
1900 REPORT RECEIVED CARE ASSUMED ASSESSMENT DONE SEE FLOW SHEET VSS. 2100 MEDS GIVEN PER MAR VSS FABRICIO BARTON TO MONITOR.
--- NOTE | 2018-10-13 23:00 | NUR ---
REASSESSMENT DONE SEE FLOW SHEET VSS. PT STATES HE THINKS HIS BLOOD SUGAR IS LOW RECHECK AT FSBS 116.
[2018-10-14] VITALS (20 sets, daily range): BP systolic 110–206; BP diastolic 34–95
--- NOTE | 2018-10-14 01:00 | NUR ---
PT TOSSING AND TURNING THROUGH OUT NIGHT. CONTINUALLY ASKING ABOUT DIALYSIS AND SLEEPING MEDS. VSS WLL CONTINUE TO MONITOR.
--- NOTE | 2018-10-14 03:00 | NUR ---
REASSESSMENT DONE SEE FLOW SHEET VSS. PT COMPLAINING OF LACK OF MEDICAL CARE TO EXAMINE HIS BROKEN NOISE. PT INCREASED ANXIETY NOTED WILL CONTINUE TO MONITOR.
[2018-10-14 03:43] LABS: EOSINOPHILS 3.1 % (0-7); HEMATOCRIT 34.9 % (42.0-54.0); HEMOGLOBIN 12.2 g/dL (13.5-17.5); IMMATURE GRANULOCYTES 0.2 % (0-5); LYMPHOCYTES 48.2 % (15-50); MCH 30.7 pg (26.0-34.0); MCV 87.7 fL (80.0-100.0); MEAN PLATELET VOLUME 9.4 fL (7.4-10.4); MONOCYTES 9.7 % (2-11); NEUTROPHILS 37.8 % (40-80); PLATELET COUNT 142 10x3/uL (130-400); RBC 3.98 10x6/uL (4.20-6.10); RDW 14.1 % (11.5-14.5)
[2018-10-14 03:44] LABS: WBC 4.1 10x3/uL (4.8-10.8)
[2018-10-14 04:00] LABS: ALBUMIN 3.6 g/dL (3.4-5.0); ANION GAP 22.5 mmol/L (8-16); BILIRUBIN - TOTAL 0.45 mg/dL (0.2-1.3); CALCIUM 8.5 mg/dL (8.5-10.1); CARBON DIOXIDE 21.7 mmol/L (21.0-32.0); CREATININE - SERUM 15.7 mg/dL (0.6-1.3); POTASSIUM - SERUM 5.2 mmol/L (3.5-5.1); PROTEIN - SERUM 7.3 g/dL (6.4-8.2)
--- NOTE | 2018-10-14 05:00 | NUR ---
PT IN BED RESTING VSS WILL CONTINUE TO MONITOR.
--- NOTE | 2018-10-14 09:15 | NUR ---
Nutrition follow-up: Diet: Renal ADA with po intake ~50% of meals Labs reviewed Wt: 186# +BM Pt confused at this time Will continue to provide food choices and honor food preferences within diet restrictions. RDN following.
--- NOTE | 2018-10-14 09:52 | NUR ---
PATIENT WILL NOT WEAR O2, WILL NOT WEAR O2 SAT MONITOR, STATES, "CHEYENNE REGAN DOING ME RIGHT." RENAL MAINTENANCE GROUNDMAN AWARE OF CURRENT STATUS
--- NOTE | 2018-10-14 10:28 | NUR ---
PATIENT PULLED OUT IV, FULL LINEN CHANGE, REPEATEDLY STATES, "SOMEBODY DONE DID ME WRONG." VERY CONFUSED.
--- NOTE | 2018-10-14 15:18 | MORECARE ---
CASE MANAGEMENT DISCHARGE SUMMARY PATIENT: KAREEM KOROMA UNIT: [id number] ADM DATE: 10/13/18 AGE: 77 : 42 SEX: M ROOM/BED: D.2306 AUTHOR: BLANCA SPRING PHYSICIAN: REFERRING PHYSICIAN: NIDA BALLARD MD DATE OF SERVICE: 10/14/18 Discharge Plan Patient Name: KAREEM KOROMA Facility: [facility]:[place] : 1940 Planned Disposition: Anticipated Discharge Date: Discharge Date: Expected LOS: Initial Reviewer: [email or web address] Initial Review Date: 10/14/2018 Generated: 10/14/18 4:18 pm Patient Name: KAREEM KOROMA Page 91305 at 1518 All edits/amendments must be made on the electronic document DICTATION DATE: 10/14/181517 IT SOLUTIONS SALES CONSULTANT: ANGELITO 10/14/181517 RPT#: [id number] DC DATE: STATUS: ADM IN [facility] [address] [place] [address] END OF REPORT
--- NOTE | 2018-10-14 15:28 | MORECARE ---
CASE MANAGEMENT DISCHARGE SUMMARY PATIENT: KAREEM KOROMA UNIT: [id number] ADM DATE: 10/13/18 AGE: 77 : 42 SEX: M ROOM/BED: D.2306 AUTHOR: BLANCA SPRING PHYSICIAN: REFERRING PHYSICIAN: NIDA BALLARD MD DATE OF SERVICE: 10/14/18 Discharge Plan Patient Name: KAREEM KOROMA Facility: [facility]:[place] : 1940 Planned Disposition: Anticipated Discharge Date: Discharge Date: Expected LOS: Initial Reviewer: [email or web address] Initial Review Date: 10/14/2018 Generated: 10/14/18 4:28 pm Comments DCP- Discharge Planning Updated by [email or web address]: Abi Randolph on 10/14/18 2:[address] Patient Name: KAREEM KOROMA Admission Status: ER Accout number: [id number] Admission Date: 10-13-2018 : 1940 Admission Diagnosis:HYPERTENSIVE URGENCY Attending: NIDA BALLARD Current LOS: 1 Anticipated DC Date: Planned Disposition: Primary Insurance: MEDICARE A & B Discharge Planning Comments: PATIENT WAS SLEEPING AND NO FAMILY HERE AT PRESENT. CM REVIEWED THE CHART AND IT APPEARS HE HAS BEEN CONFUSED. HE LIVES WITH HIS SPOUSE IN [place]. HE HAS HEMODYALISIS 3 TIMES PER WEEK BUT DIDN'T GO LAST TIME FOR UNKNOWN REASON. CM WILL ATTEMPT TO CONTACT PATIENT'S CONCERNING DC NEEDS. Web Analytics Developer: Abi Randolph DCPIA - Discharge Planning Initial Assessment Updated by [email or web address]: Abi Randolph on 10/14/18 3:19 pm * Is the patient Alert and Oriented? No * PCP VICKI * Pharmacy [facility] * Preadmission Environment Home with Family * List name and contact numbers for known caregivers / representatives who currently or will assist patient after discharge: LESLEY, SPOUSE, Last DP export: 10/14/18 2:18 p Patient Name: KAREEM KOROMA Page 55524 at 2298 All edits/amendments must be made on the electronic document DICTATION DATE: 10/14/18 1527 JUNIOR ACCOUNT EXECUTIVE: DM 10/14/18 152 RPT#: [id number] DC DATE: STATUS: ADM IN [facility] [address] [place] [address] END OF REPORT
--- NOTE | 2018-10-14 19:40 | NUR ---
RECEIVED CARE OF PT, ASSESSMENT PER FLOWSHEET. PT ABLE TO REPOSITION SELF WITH MINIMAL ASSISTANCE, DENIES ANY NEEDS AT THIS TIME, WILL MONITOR.
--- NOTE | 2018-10-14 21:30 | NUR ---
NO VISITORS PRESENT AT THIS TIME.
--- NOTE | 2018-10-14 23:40 | NUR ---
REASSESSMENT PER FLOWSHEET, NO ACUTE CHANGES NOTED AT THIS TIME. VSS
[2018-10-15] VITALS (11 sets, daily range): BP systolic 132–165; BP diastolic 56–101
--- NOTE | 2018-10-15 01:40 | NUR ---
PT ASKING IF HE WILL HAVE DIALYSIS TODAY, INFORMED PT THAT HE WOULD BUT AT A LATER TIME.
[2018-10-15 03:17] LABS: BASOPHILS 1.1 % (0-2); EOSINOPHILS 4.7 % (0-7); HEMATOCRIT 33.4 % (42.0-54.0); HEMOGLOBIN 11.5 g/dL (13.5-17.5); LYMPHOCYTES 45.7 % (15-50); MCH 30.3 pg (26.0-34.0); MCHC 34.4 g/dL (31.0-37.0); MCV 88.1 fL (80.0-100.0); MEAN PLATELET VOLUME 9.2 fL (7.4-10.4); MONOCYTES 8.4 % (2-11); NEUTROPHILS 40.1 % (40-80); PLATELET COUNT 135 10x3/uL (130-400); RBC 3.79 10x6/uL (4.20-6.10); RDW 14.2 % (11.5-14.5); WBC 3.6 10x3/uL (4.8-10.8)
[2018-10-15 03:30] LABS: CALCIUM 7.6 mg/dL (8.5-10.1); CARBON DIOXIDE 21.8 mmol/L (21.0-32.0); CREATININE - SERUM 17.8 mg/dL (0.6-1.3); PHOSPHOROUS 5.4 mg/dL (2.5-4.9); POTASSIUM - SERUM 5.8 mmol/L (3.5-5.1)
--- NOTE | 2018-10-15 05:50 | NUR ---
NO VISITORS PRESENT AT THIS TIME, VSS, PT DENIES ANY NEEDS.
--- NOTE | 2018-10-15 13:47 | NUR ---
PT PLEASANTLY CONFUSED AWAKE AND RESPONDS APPROPRIATELY TO VERBAL STIMULI RESP EVEN AND NONLABORED PT DENIES NEEDS AT THIS TIME IV TO RIGHT FOREARM PATENT AND INTACT AT THIS TIME. SRX2 BED AT LOWEST SETTING CALL LIGHT WITHIN REACH. DOOR OPEN AND BED ALARM ACTIVE AT THIS TIME.
--- NOTE | 2018-10-15 13:53 | NUR ---
ATTEMPTED TO CALL TO MAKE HER AWARE OF TRANSFER, LINE WILL NOT CONNECT, GOES STRAIGHT TO ERROR RECORDING
--- NOTE | 2018-10-15 19:15 | NUR ---
AWAKE AND ALERT...OX2...BED LOW AND LOCKED SRX2 AND CALL LIGHT IS IN PLACE. LCTA BOWEL SOUNDS X4 SKIN WARM AND DRY DENIES NEEDS AT THIS TIME EFFORT MADE TO IMPROVE COMFORT
--- NOTE | 2018-10-15 23:07 | NUR ---
PT HAS NO IV ACCESS ATTEMPTED TIMES ONE TO GIVE ZOFRAN BUT UNSUCCESSFUL
[2018-10-16 03:49] VITALS: BP 127/60
--- NOTE | 2018-10-16 04:27 | NUR ---
I have reviewed this patient and I concur with the Shift Assessment completed by the Licensed Practical Nurse today this shift.
[2018-10-16 06:04] LABS: BASOPHILS 0.6 % (0-2); EOSINOPHILS 4.2 % (0-7); HEMATOCRIT 34.9 % (42.0-54.0); HEMOGLOBIN 11.9 g/dL (13.5-17.5); LYMPHOCYTES 43.5 % (15-50); MCH 30.2 pg (26.0-34.0); MCHC 34.1 g/dL (31.0-37.0); MCV 88.6 fL (80.0-100.0); MEAN PLATELET VOLUME 10.5 fL (7.4-10.4); MONOCYTES 14.5 % (2-11); NEUTROPHILS 37.2 % (40-80); PLATELET COUNT 159 10x3/uL (130-400); RBC 3.94 10x6/uL (4.20-6.10); RDW 14.1 % (11.5-14.5); WBC 3.3 10x3/uL (4.8-10.8)
[2018-10-16 06:26] LABS: ANION GAP 16.8 mmol/L (8-16); CALCIUM 7.7 mg/dL (8.5-10.1); CARBON DIOXIDE 26.5 mmol/L (21.0-32.0); CREATININE - SERUM 14.6 mg/dL (0.6-1.3); PHOSPHOROUS 5.8 mg/dL (2.5-4.9); POTASSIUM - SERUM 5.3 mmol/L (3.5-5.1)
[2018-10-16 10:00] VITALS: BP 154/75
[2018-10-16 16:43] VITALS: BP 138/57
--- NOTE | 2018-10-16 17:04 | NUR ---
ALERT AND ORIENTED X4. SITTING UP IN BED. SINUS BETH 57 ON TELEMETRY. DENIES ANY NEEDS. CONTINUE PLAN OF CARE AND SAFETY PRECAUTIONS.
[2018-10-16 17:14] VITALS: BP 188/78
[2018-10-16 19:55] VITALS: BP 131/58
--- NOTE | 2018-10-16 20:14 | NUR ---
RECIEVE BEDSIDE REPORT. AAOX2, VSS, RECIEVED RPORT ABOUT PT FALL WHEN TRYING TO GET TO THE BATHROOM. PT DENIES ANY PAIN, NO S/S OF INJURY OR BLEEDING NOTED. PT STATES HE IS FEELING JUST FINE. CALLUS ON RIGHT GREAT TOE, NO S/S OF BLEEDING NOTED. FAMILY AT BEDSIDE. DENIES ANY NEEDS AT THIS TIME WILL CPOC. CL IN REACH, BED IN LOW, SR UP X2.
[2018-10-16 23:49] VITALS: BP 132/88
[2018-10-17 03:43] VITALS: BP 161/75
[2018-10-17 05:56] LABS: BASOPHILS 0.6 % (0-2); EOSINOPHILS 4.7 % (0-7); HEMATOCRIT 34.4 % (42.0-54.0); HEMOGLOBIN 11.8 g/dL (13.5-17.5); IMMATURE GRANULOCYTES 0.2 % (0-5); LYMPHOCYTES 38.7 % (15-50); MCH 30.2 pg (26.0-34.0); MCHC 34.3 g/dL (31.0-37.0); MONOCYTES 9.3 % (2-11); NEUTROPHILS 46.5 % (40-80); PLATELET COUNT 164 10x3/uL (130-400); RBC 3.91 10x6/uL (4.20-6.10); RDW 14.3 % (11.5-14.5)
[2018-10-17 05:57] LABS: WBC 5.1 10x3/uL (4.8-10.8)
[2018-10-17 06:56] LABS: ANION GAP 23.6 mmol/L (8-16); CALCIUM 7.2 mg/dL (8.5-10.1); CARBON DIOXIDE 22.9 mmol/L (21.0-32.0); PHOSPHOROUS 5.8 mg/dL (2.5-4.9); POTASSIUM - SERUM 5.5 mmol/L (3.5-5.1)
[2018-10-17 07:38] VITALS: BP 174/75
[2018-10-17 11:56] VITALS: BP 115/76
--- NOTE | 2018-10-17 15:00 | NUR ---
ALERT AND ORIENTED X4. SITTING UP IN BED. FAMILY AT BEDSIDE. SINUS RHYTHM 68 ON TELEMETRY. SENOKOT ADMINISTERED PER PATIENT REQUEST. BED ALARM ON. CONTINUE PLAN OF CARE AND SAFETY PRECAUTIONS.
[2018-10-17 16:14] VITALS: BP 148/65
--- NOTE | 2018-10-17 19:30 | NUR ---
CONFUSED AND FIXATED ON THE URINAL PT HAS BEEN CONSTANTLY ELECTRONICS MECHANIC LIGHT AND EVERYTIME STATES IM SORRY I CANT MAKE URINE. LISA TRIED TO EXPLAIN WE ARE AWARE AND THAT HE RECIEVES DIALYSIS..BED IS LOW AND LOCKED WITH CALL LIGHT IN REACH, LCTA SKIN WARM AND DRY BOWEL SOUNDS X4
[2018-10-17 20:00] VITALS: BP 142/56
[2018-10-18] VITALS: BP 133/59
[2018-10-18 04:00] VITALS: BP 143/63
[2018-10-18 06:33] LABS: ANION GAP 22.7 mmol/L (8-16); CREATININE - SERUM 17.3 mg/dL (0.6-1.3); PHOSPHOROUS 6.3 mg/dL (2.5-4.9); POTASSIUM - SERUM 5.7 mmol/L (3.5-5.1)
[2018-10-18 06:46] LABS: CALCIUM 6.9 mg/dL (8.5-10.1)
[2018-10-18 06:50] LABS: BASOPHILS 0.4 % (0-2); EOSINOPHILS 3.6 % (0-7); HEMATOCRIT 32.2 % (42.0-54.0); HEMOGLOBIN 11.1 g/dL (13.5-17.5); IMMATURE GRANULOCYTES 0.2 % (0-5); LYMPHOCYTES 26.6 % (15-50); MCHC 34.5 g/dL (31.0-37.0); MEAN PLATELET VOLUME 9.9 fL (7.4-10.4); MONOCYTES 10.3 % (2-11); NEUTROPHILS 58.9 % (40-80); PLATELET COUNT 165 10x3/uL (130-400); RDW 14.2 % (11.5-14.5); WBC 5.2 10x3/uL (4.8-10.8)
[2018-10-18 07:54] VITALS: BP 141/59
[2018-10-18] MEDS ORDERED: LANTUS INSULIN10 ML SC (11:00)
--- NOTE | 2018-10-18 16:49 | CN ---
PATIENT NAME:KAREEM ZIEGLER MEDICAL RECORD: [id number] : 44 LOCATION:D. D.2133 ADMIT DATE: 10/13/18 ACCOUNT: [id number] CONSULTING PHYSICIAN: MARIANA GARCIA MD REFERRING PHYSICIAN: NIDA BALLARD MD DATE OF CONSULTATION: 10/14/2018 HISTORY OF PRESENT ILLNESS: Mr. Ziegler is a 77-year-old male who was admitted secondary to complaints of weakness and nausea after having not attended dialysis for 4 days. He was also hypertensive. The patient has increasingly especially in the last day according to nursing with whom I spoke despite more and more paranoia, aggressiveness, and agitation. On top of this, apparently, a family has been somewhat difficult to get in touch with as far as being able to assess to what degree he has support at home. Looking through the chart, it appears that we were able to get in touch with the son; however, patient's is the primary caregiver. The patient on interview states to me that he does feel like he is being singled out and treated badly because of his scientology and since he is Mosque. He denies auditory or visual hallucinations. He states when asked about being on Risperdal, previously, he does not seem to remember why. He denies auditory or visual hallucinations. Again, positive for paranoia. Denies suicidal or homicidal ideations. PAST PSYCHIATRIC HISTORY: He has seen a psychiatrist in the past. MEDICAL HISTORY: Per chart neuropathy, weakness, hypertension, CHF, coronary artery disease, and end-stage renal disease, on dialysis. SOCIAL HISTORY: Apparently lives with his who is his primary caregiver. However, son says she is quite busy and they have a phone that really will not accept calls and patient states that his is in charge of his medicine. FAMILY PSYCHIATRIC HISTORY: Unknown. MENTAL STATUS EXAMINATION: GENERAL: This is a 77-year-old -Bruneian male in bed. He is cooperative to interview, although limited secondary to cognition. His speech is regular rate and rhythm. PSYCHIATRIC: His mood is okay "with affect congruent mood." THOUGHT PROCESS: Irrational in the paranoia, relevant, and goal directed. THOUGHT CONTENT: Negative for suicidal or homicidal ideation, auditory or visual hallucinations. Positive for delusions. Cognitive exam, when asked the year, he thought it was [id number], he was not that fully sure. He knew it was September. He thought it was instead of Wednesday. He did not know the date. He knew which hospital he was in, and generally while he was here, he knew who the president was Tara. 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 PLAN: If at all possible from a renal point of view, we would recommend restarting the Risperdal that he was on, the lack thereof is probably contributing to increasing paranoia at this point. As he does have limited family support, we would try to see if we can contact them. If not might have to consider APS involvement to make sure that the patient's needs are being taken care of at home. Case discussed with nursing. Electronic chart reviewed CONSULT REPORT [id number] KAREEM ZIEGLER and the patient interviewed. TRANSINT:[id number] Voice Confirmation ID: [id number] DOCUMENT ID: [id number] MARIANA GARCIA MD at 1649 CC: [id number] DICTATION DATE: 10/14/18 1416 SPARK PLUG ASSEMBLER: 10/14/18 2230 ADM IN [place] [id number] [place] [id number]
[2018-10-18 17:02] VITALS: BP 155/75
--- NOTE | 2018-10-18 19:18 | NUR ---
AWAKE AND ALERT AND CONTINUES TO BE CONFUSED TO SITUATION..SKIN WARM AND DRY LCTA BOWEL SOUNDS X4 BED IS LOW AND LOCKED AND CALL LIGHT IS IN REACH
[2018-10-18 20:00] VITALS: BP 147/66
[2018-10-19] VITALS: BP 142/67
--- NOTE | 2018-10-19 02:38 | NUR ---
I have reviewed this patient and I concur with the Shift Assessment completed by the Licensed Practical Nurse today this shift.
[2018-10-19 05:19] LABS: BASOPHILS 0.7 % (0-2); EOSINOPHILS 2.6 % (0-7); HEMOGLOBIN 10.9 g/dL (13.5-17.5); IMMATURE GRANULOCYTES 0.2 % (0-5); LYMPHOCYTES 26.8 % (15-50); MCHC 34.1 g/dL (31.0-37.0); MCV 88.2 fL (80.0-100.0); MEAN PLATELET VOLUME 10.8 fL (7.4-10.4); MONOCYTES 12.1 % (2-11); NEUTROPHILS 57.6 % (40-80); PLATELET COUNT 161 10x3/uL (130-400); RBC 3.63 10x6/uL (4.20-6.10); RDW 14.1 % (11.5-14.5); WBC 4.2 10x3/uL (4.8-10.8)
[2018-10-19 05:42] LABS: CALCIUM 7.5 mg/dL (8.5-10.1); PHOSPHOROUS 5.8 mg/dL (2.5-4.9)
[2018-10-19 05:51] LABS: CARBON DIOXIDE 27.8 mmol/L (21.0-32.0); CREATININE - SERUM 11.4 mg/dL (0.6-1.3); POTASSIUM - SERUM 4.8 mmol/L (3.5-5.1)
--- NOTE | 2018-10-19 07:17 | NUR ---
MORNING ROUNDS MADE. PT RESTING. DENIES FURTHER NEEDS AT THIS TIME. WILL CTM.
--- NOTE | 2018-10-19 08:00 | NUR ---
VITALS STABLE. PT SITTING UP EATING BREAKFAST, TOOK MEDS WITHOUT DIFFICULTY. NO FURTHER CONCERNS AT THIS TIME. WILL CTM.
[2018-10-19 08:07] VITALS: BP 180/80
[2018-10-19 11:59] VITALS: BP 127/49
--- NOTE | 2018-10-19 13:51 | NUR ---
Nutrition follow-up: Diet: Renal PO intake has improved; now ~85% average of last 9 meals Labs reviewed Wt: 193# +BM RDN following.
--- NOTE | 2018-10-19 14:04 | NUR ---
I have reviewed this patient and I concur with the Shift Assessment completed by the Licensed Practical Nurse today this shift.
--- NOTE | 2018-10-19 14:43 | NUR ---
PT LAYING IN BED RESTING COMFORTABLY. BREATHING EVEN AND UNLABORED. PT C/O HEADACHE. DENIES NEED FOR PAIN MEDS AT THIS TIME, STATES HE THINKS IT IS JUST ALLERGIES. FALL PRECAUTIONS IN PLACE. WILL CTM.
--- NOTE | 2018-10-19 15:05 | MORECARE ---
CASE MANAGEMENT DISCHARGE SUMMARY PATIENT: KAREEM KOROMA UNIT: [id number] ADM DATE: 10/13/18 AGE: 77 : 42 SEX: M ROOM/BED: D.7563 AUTHOR: BLANCA SPRING PHYSICIAN: REFERRING PHYSICIAN: NIDA BALLARD MD DATE OF SERVICE: 10/19/18 Discharge Plan Patient Name: KAREEM KOROMA Facility: [facility]:[place] : 1940 Planned Disposition: Fci Facility Anticipated Discharge Date: 10/21/18 Discharge Date: Expected LOS: 8 Initial Reviewer: [id number] Initial Review Date: 10/14/2018 Generated: 10/19/18 4:05 pm Comments DCP- Discharge Planning Updated by [id number]: Abi Randolph on 10/14/18 2:[address] Patient Name: KAREEM KOROMA Admission Status: ER Accout number: [id number] Admission Date: 10-13-2018 : 1940 Admission Diagnosis:HYPERTENSIVE URGENCY Attending: NIDA BALLARD Current LOS: 1 Anticipated DC Date: Planned Disposition: Primary Insurance: MEDICARE A & B Discharge Planning Comments: PATIENT WAS SLEEPING AND NO FAMILY HERE AT PRESENT. CM REVIEWED THE CHART AND IT APPEARS HE HAS BEEN CONFUSED. HE LIVES WITH HIS SPOUSE IN [place]. HE HAS HEMODYALISIS 3 TIMES PER WEEK BUT DIDN'T GO LAST TIME FOR UNKNOWN REASON. CM WILL ATTEMPT TO CONTACT PATIENT'S CONCERNING DC NEEDS. Senior Business Intelligence Analyst: Abi Randolph DCPIA - Discharge Planning Initial Assessment Updated by [id number]: Abi Randolph on 10/14/18 3:19 pm * Is the patient Alert and Oriented? No * PCP VICKI * Pharmacy [facility] * Preadmission Environment Home with Family * List name and contact numbers for known caregivers / representatives who currently or will assist patient after discharge: [place], UTE, External Providers External Provider: [facility] Next Contact Date: 10/19/2018 Service Request Date: Service Type: Resolution: Reviewer: Comments: Coverage Notice Reviewer: [id number] Andrey Terry Notice Issued Date-Time: 10/19/2018 9:30 Notice Type: IM Discharge Notice Notice Delivered To: Patient Relationship to Patient: Sales Department Supervisor Name: Delivery Method: HAND - Hand Delivered Aleida Days: Prior Verbal Notification: Recipient Understood Notice: Yes Recipient Signature: Yes Med Rec Note Co-signed by Attending: Coverage Notice Comment: Reviewer: SHALONDA Terry Notice Issued Date-Time: 10/19/2018 9:30 Notice Type: Patient Choice Letter Notice Delivered To: Patient Relationship to Patient: Sales Department Supervisor Name: Delivery Method: HAND - Hand Delivered Aleida Days: Prior Verbal Notification: Recipient Understood Notice: Yes Recipient Signature: Yes Med Rec Note Co-signed by Attending: Coverage Notice Comment: NO HOME HEALTH PROVIDER PREFERENCE Reviewer: [email or web address] Terry Notice Issued Date-Time: 10/19/2018 14:45 Notice Type: Patient Choice Letter Notice Delivered To: Family Member Relationship to Patient: Spouse Sales Department Supervisor Name: LESLEY KOROMA Delivery Method: HAND - Hand Delivered Aleida Days: Prior Verbal Notification: Recipient Understood Notice: Yes Recipient Signature: Med Rec Note Co-signed by Attending: Coverage Notice Comment: LUANNE RECIO Last DP export: 10/14/18 2:28 p Patient Name: KAREEM KOROMA Page [phone] at 1505 All edits/amendments must be made on the electronic document DICTATION DATE: 10/19/18 1505 SOLUTIONS DEVELOPMENT ANALYST: ANGELITO 10/19/18 1505 RPT#: [id number] DC DATE: STATUS: ADM IN [facility] [address] [place] [address] END OF REPORT
--- NOTE | 2018-10-19 16:58 | MORECARE ---
CASE MANAGEMENT DISCHARGE SUMMARY PATIENT: KAREEM KOROMA UNIT: [id number] ADM DATE: 10/13/18 AGE: 77 : 42 SEX: M ROOM/BED: D.2133 AUTHOR: CLEMENTINEDOC PHYSICIAN: REFERRING PHYSICIAN: NIDA BALLARD MD DATE OF SERVICE: 10/19/18 Discharge Plan Patient Name: KAREEM KOROMA Facility: [facility]:[place] : 1940 Planned Disposition: Custodial Facility Anticipated Discharge Date: 10/21/18 Discharge Date: Expected LOS: 8 Initial Reviewer: [id number] Initial Review Date: 10/14/2018 Generated: 10/19/18 5:58 pm Comments DCP- Discharge Planning Updated by [id number]: Tone Terry on 10/19/18 3:[address] Patient Name: KAREEM KOROMA Encounter No: [id number] : 1940 Primary Insurance: MEDICARE A & B Anticipated DC Date: 10-21-2018 Planned Disposition: Custodial Facility External Planned Provider: [facility], MEDICARE REHAB BED DCP follow-up note: CM MET WITH PT IN ROOM TO DISCUSS DISCHARGE NEEDS AND PLANNING. CM DISCUSSED AVAILABILITY OF HOME HEALTH, REHAB SERVICES AND MEDICAL EQUIPMENT. PT REPORTS HE DOES NOT KNOW IF HE CAN GO HOME BUT IF HE DOES, HE WANTS HOME HEALTH. CHOICE SIGNED FOR NO PROVIDER PREFERENCE. IMPORTANT MESSAGE FROM MEDICARE PROVIDED AND EXPLAINED. PT ASKE3D CM TO CALL L[place] TO DISCUSS DISCHARGE PLANS. CM CALLED LESLEY KOROMA, DISCUSSED DISCHARGE NEEDS, REVIEWED THERAPY NOTES. LESLEY WOULD LIKE PT IN REHAB AT [facility], THEY ARE FAMILIAR WITH PT AND PT IS FAMILIAR WITH FACILITY; CHOICE LETTER COMPLETED. CM NOTIFED JASWANT OF REFERRAL AT [phone]. CM FAXED REFERRAL TO [facility] AT [phone]. CM WAITING ADMISISON DETERMINATION FOR REHAB SERVICES AT [facility]. VALENTE Broussard DCP- Discharge Planning Updated by [email or web address]: Abi Randolph on 10/14/18 2:[address] Patient Name: KAREEM KOROMA Admission Status: ER Accout number: [id number] Admission Date: 10-13-2018 : 1940 Admission Diagnosis:HYPERTENSIVE URGENCY Attending: NIDA BALLARD Current LOS: 1 Anticipated DC Date: Planned Disposition: Primary Insurance: MEDICARE A & B Discharge Planning Comments: PATIENT WAS SLEEPING AND NO FAMILY HERE AT PRESENT. CM REVIEWED THE CHART AND IT APPEARS HE HAS BEEN CONFUSED. HE LIVES WITH HIS SPOUSE IN [place]. HE HAS HEMODYALISIS 3 TIMES PER WEEK BUT DIDN'T GO LAST TIME FOR UNKNOWN REASON. CM WILL ATTEMPT TO CONTACT PATIENT'S CONCERNING DC NEEDS. Porcelain Technician: Abi Randolph DCPIA - Discharge Planning Initial Assessment Updated by [email or web address]: Abimaye Randolph on 10/14/18 3:19 pm * Is the patient Alert and Oriented? No * PCP VICKI * Pharmacy [facility] * Preadmission Environment Home with Family * List name and contact numbers for known caregivers / representatives who currently or will assist patient after discharge: UTE SUTTON, Coverage Notice Reviewer: [id number] Terry Notice Issued Date-Time: 10/19/2018 9:30 Notice Type: IM Discharge Notice Notice Delivered To: Patient Relationship to Patient: Health Education Aide Name: Delivery Method: HAND - Hand Delivered Aleida Days: Prior Verbal Notification: Recipient Understood Notice: Yes Recipient Signature: Yes Med Rec Note Co-signed by Attending: Coverage Notice Comment: Reviewer: SHALONDA Terry Notice Issued Date-Time: 10/19/2018 9:30 Notice Type: Patient Choice Letter Notice Delivered To: Patient Relationship to Patient: Health Education Aide Name: Delivery Method: HAND - Hand Delivered Aleida Days: Prior Verbal Notification: Recipient Understood Notice: Yes Recipient Signature: Yes Med Rec Note Co-signed by Attending: Coverage Notice Comment: NO HOME HEALTH PROVIDER PREFERENCE Reviewer: [id number] Terry Notice Issued Date-Time: 10/19/2018 14:45 Notice Type: Patient Choice Letter Notice Delivered To: Family Member Relationship to Patient: Spouse Health Education Aide Name: LESLEY KOROMA Delivery Method: HAND - Hand Delivered Aleida Days: Prior Verbal Notification: Recipient Understood Notice: Yes Recipient Signature: Med Rec Note Co-signed by Attending: Coverage Notice Comment: [facility] Last DP export: 10/19/18 2:05 p Patient Name: KAREEM KOROMA Page [phone] at 1658 All edits/amendments must be made on the electronic document DICTATION DATE: 10/19/181657 NUT THREADER: ANGELITO 10/19/181657 RPT#: [id number] DC DATE: STATUS: ADM IN [facility] [address] [place] [address] END OF REPORT
--- NOTE | 2018-10-19 19:33 | NUR ---
REPORT RECIEVED AND ROUNDING COMPLETE. PT LAYING IN BED EYES CLOSED. PT AWOKE UPON ENETERING HIS ROOM. PT A&O X3 UNSURE OF WHY HE IS IN HOSPITAL. PT STATES HE HAS NO NEEDS AT THIS TIME, CALL LIGHT WITHIN REACH AND BED IN LOWEST POSITON.
[2018-10-19 20:00] VITALS: BP 124/57
[2018-10-20] VITALS: BP 121/55
--- NOTE | 2018-10-20 02:41 | NUR ---
I have reviewed this patient and I concur with the Shift Assessment completed by the Licensed Practical Nurse today this shift.
[2018-10-20 04:00] VITALS: BP 131/58
--- NOTE | 2018-10-20 04:24 | NUR ---
PT LAYING IN BED, EYES OPEN, PT STATES NO NEEDS AT THIS TIME JUST UNABLE TO SLEEP. CALL LIGHT WITHIN REACH BED IN LOWEST POSITION AND CALL LIGHT WITHIN REACH.
[2018-10-20 04:43] LABS: BASOPHILS 0.4 % (0-2); EOSINOPHILS 4.7 % (0-7); HEMATOCRIT 28.7 % (42.0-54.0); HEMOGLOBIN 9.7 g/dL (13.5-17.5); IMMATURE GRANULOCYTES 0.2 % (0-5); LYMPHOCYTES 44.2 % (15-50); MCH 29.9 pg (26.0-34.0); MCHC 33.8 g/dL (31.0-37.0); MCV 88.6 fL (80.0-100.0); MEAN PLATELET VOLUME 10.1 fL (7.4-10.4); MONOCYTES 8.9 % (2-11); NEUTROPHILS 41.6 % (40-80); PLATELET COUNT 144 10x3/uL (130-400); RBC 3.24 10x6/uL (4.20-6.10); RDW 14.1 % (11.5-14.5); WBC 4.5 10x3/uL (4.8-10.8)
[2018-10-20 05:00] LABS: ANION GAP 15.7 mmol/L (8-16); CALCIUM 7.2 mg/dL (8.5-10.1); CARBON DIOXIDE 26.8 mmol/L (21.0-32.0); POTASSIUM - SERUM 5.5 mmol/L (3.5-5.1)
[2018-10-20 07:34] VITALS: BP 132/63
--- NOTE | 2018-10-20 12:38 | MORECARE ---
CASE MANAGEMENT DISCHARGE SUMMARY PATIENT: KAREEM KOROMA UNIT: [id number] ADM DATE: 10/13/18 AGE: 77 : 42 SEX: M ROOM/BED: D.2133 AUTHOR: CLEMENTINEDOC PHYSICIAN: REFERRING PHYSICIAN: NIDA BALLARD MD DATE OF SERVICE: 10/20/18 Discharge Plan Patient Name: KAREEM KOROMA Facility: [facility]:[place] : 1940 Planned Disposition: Longterm Facility Anticipated Discharge Date: 10/21/18 Discharge Date: Expected LOS: 8 Initial Reviewer: [id number] Initial Review Date: 10/14/2018 Generated: 10/20/18 1:38 pm Comments DCP- Discharge Planning Updated by [email or web address]: Tone Terry on 10/19/18 3:[address] Patient Name: KAREEM KOROMA Encounter No: [id number] : 1940 Primary Insurance: MEDICARE A & B Anticipated DC Date: 10-21-2018 Planned Disposition: Longterm Facility External Planned Provider: [facility], MEDICARE REHAB BED DCP follow-up note: CM MET WITH PT IN ROOM TO DISCUSS DISCHARGE NEEDS AND PLANNING. CM DISCUSSED AVAILABILITY OF HOME HEALTH, REHAB SERVICES AND MEDICAL EQUIPMENT. PT REPORTS HE DOES NOT KNOW IF HE CAN GO HOME BUT IF HE DOES, HE WANTS HOME HEALTH. CHOICE SIGNED FOR NO PROVIDER PREFERENCE. IMPORTANT MESSAGE FROM MEDICARE PROVIDED AND EXPLAINED. PT ASKE3D CM TO CALL [place] TO DISCUSS DISCHARGE PLANS. CM CALLED LESLEY KOROMA, DISCUSSED DISCHARGE NEEDS, REVIEWED THERAPY NOTES. LESLEY WOULD LIKE PT IN REHAB AT [facility], THEY ARE FAMILIAR WITH PT AND PT IS FAMILIAR WITH FACILITY; CHOICE LETTER COMPLETED. CM NOTIFED JASWANT OF REFERRAL AT [phone]. CM FAXED REFERRAL TO [facility] AT [phone]. CM WAITING ADMISISON DETERMINATION FOR REHAB SERVICES AT [facility]. VALENTE Broussard DCP- Discharge Planning Updated by [email or web address]: Abi Randolph on 10/14/18 2:[address] Patient Name: KAREEM KOROMA Admission Status: ER Accout number: [id number] Admission Date: 10-13-2018 : 1940 Admission Diagnosis:HYPERTENSIVE URGENCY Attending: NIDA BALLARD Current LOS: 1 Anticipated DC Date: Planned Disposition: Primary Insurance: MEDICARE A & B Discharge Planning Comments: PATIENT WAS SLEEPING AND NO FAMILY HERE AT PRESENT. CM REVIEWED THE CHART AND IT APPEARS HE HAS BEEN CONFUSED. HE LIVES WITH HIS SPOUSE IN [place]. HE HAS HEMODYALISIS 3 TIMES PER WEEK BUT DIDN'T GO LAST TIME FOR UNKNOWN REASON. CM WILL ATTEMPT TO CONTACT PATIENT'S CONCERNING DC NEEDS. Silk Screen Operator: Abi Tomasa DCPIA - Discharge Planning Initial Assessment Updated by [email or web address]: Tone Terry on 10/20/18 12:32 pm * Is the patient Alert and Oriented? No * PCP VICKI * Pharmacy [facility] * Preadmission Environment Home with Family * List name and contact numbers for known caregivers / representatives who currently or will assist patient after discharge: UTE SUTTON, Coverage Notice Reviewer: SHALONDA Terry Notice Issued Date-Time: 10/19/2018 9:30 Notice Type: IM Discharge Notice Notice Delivered To: Patient Relationship to Patient: High Scaler Name: Delivery Method: HAND - Hand Delivered Aleida Days: Prior Verbal Notification: Recipient Understood Notice: Yes Recipient Signature: Yes Med Rec Note Co-signed by Attending: Coverage Notice Comment: Reviewer: SHALONDA Terry Notice Issued Date-Time: 10/19/2018 9:30 Notice Type: Patient Choice Letter Notice Delivered To: Patient Relationship to Patient: High Scaler Name: Delivery Method: HAND - Hand Delivered Aleida Days: Prior Verbal Notification: Recipient Understood Notice: Yes Recipient Signature: Yes Med Rec Note Co-signed by Attending: Coverage Notice Comment: NO HOME HEALTH PROVIDER PREFERENCE Reviewer: SHALONDA Terry Notice Issued Date-Time: 10/19/2018 14:45 Notice Type: Patient Choice Letter Notice Delivered To: Family Member Relationship to Patient: Spouse High Scaler Name: LESLEY KOROMA Delivery Method: HAND - Hand Delivered Aleida Days: Prior Verbal Notification: Recipient Understood Notice: Yes Recipient Signature: Med Rec Note Co-signed by Attending: Coverage Notice Comment: [facility] Last DP export: 10/19/18 3:58 p Patient Name: KAREEM KOROMA Page [phone] at 1238 All edits/amendments must be made on the electronic document DICTATION DATE: 10/20/181237 ACTIVITY THERAPY SPECIALIST: ANGELITO 10/20/18 1238 RPT#: [id number] DC DATE: STATUS: ADM IN [facility] [address] [place] [address] END OF REPORT
--- NOTE | 2018-10-20 13:16 | MORECARE ---
CASE MANAGEMENT DISCHARGE SUMMARY PATIENT: KAREEM KOROMA UNIT: [id number] ADM DATE: 10/13/18 AGE: 77 : 42 SEX: M ROOM/BED: D.3653 AUTHOR: CLEMENTINE,DOC PHYSICIAN: REFERRING PHYSICIAN: NIDA BALLARD MD DATE OF SERVICE: 10/20/18 Discharge Plan Patient Name: KAREEM KOROMA Facility: [facility]:[place] : 1940 Planned Disposition: Senior Living Facility Anticipated Discharge Date: 10/21/18 Discharge Date: Expected LOS: 8 Initial Reviewer: [id number] Initial Review Date: 10/14/2018 Generated: 10/20/18 2:16 pm Comments DCP- Discharge Planning Updated by [email or web address]: Tone Flores on 10/20/18 12:[address] Patient Name: KAREEM KOROMA Encounter No: [id number] : 1940 Primary Insurance: MEDICARE A & B Anticipated DC Date: 10-21-2018 Planned Disposition: Senior Living Facility External Planned Provider: [facility] DCP follow-up note: CM MET WITH PT IN ROOM TO DISCUSS DISCHARGE NEEDS AND PLANNING. CM DISCUSSED AVAILABILITY OF HOME HEALTH, REHAB SERVICES AND MEDICAL EQUIPMENT. PT REPORTS HE DOES NOT KNOW IF HE CAN GO HOME BUT IF HE DOES, HE WANTS HOME HEALTH. CHOICE SIGNED FOR NO PROVIDER PREFERENCE. IMPORTANT MESSAGE FROM MEDICARE PROVIDED AND EXPLAINED. PT ASKE3D CM TO CALL LESLEY TO DISCUSS DISCHARGE PLANS. CM CALLED LESLEY KOROMA, DISCUSSED DISCHARGE NEEDS, REVIEWED THERAPY NOTES. LESLEY WOULD LIKE PT IN REHAB AT [facility], THEY ARE FAMILIAR WITH PT AND PT IS FAMILIAR WITH FACILITY; CHOICE LETTER COMPLETED. CM NOTIFED JASWANT OF REFERRAL AT [phone]. CM FAXED REFERRAL TO [facility] AT [phone]. CM WAITING ADMISISON DETERMINATION FOR REHAB SERVICES AT [facility]. Tone Flores, CASE MANAGEMENT Appended by Tone Flores on 10/20/2018 13:15 CDT: CM RECEIVED CALL FROM JASWANT [facility], THEY WILL ACCEPT PT TODAY IF [facility] CLEARANCE IS RECEIVED. CM COMPLETED [facility] SCREENING FORM, OBTAINED SIGNATURES FROM COMPACT ASSEMBLER ESTELA AND PT. CM FAXED TO [employer]. CM WAITING [facility] SCREENING CLEARANCE TO ENTER SHELTER. [facility] WILL ACCEPT ONCE CLEARED BY [facility]. FOR DISCHARGE, FAX DISCHARGE INFORMATION TO [facility] AT [phone]; NURSE REPORT TO BE CALLED TO [facility], . [facility] TO ARRANGE VAN TRANSPORTATION TONE FLORES, CASE MANAGEMENT. DCP- Discharge Planning Updated by [id number]: Abi Randolph on 10/14/18 2:[address] Patient Name: KAREEM KOROMA Admission Status: ER Accout number: [id number] Admission Date: 10-13-2018 : 1940 Admission Diagnosis:HYPERTENSIVE URGENCY Attending: NIDA BALLARD Current LOS: 1 Anticipated DC Date: Planned Disposition: Primary Insurance: MEDICARE A & B Discharge Planning Comments: PATIENT WAS SLEEPING AND NO FAMILY HERE AT PRESENT. CM REVIEWED THE CHART AND IT APPEARS HE HAS BEEN CONFUSED. HE LIVES WITH HIS SPOUSE IN [place]. HE HAS HEMODYALISIS 3 TIMES PER WEEK BUT DIDN'T GO LAST TIME FOR UNKNOWN REASON. CM WILL ATTEMPT TO CONTACT PATIENT'S CONCERNING DC NEEDS. Thread Milling Machine Set Up Operator: Abi Randolph DCPIA - Discharge Planning Initial Assessment Updated by [email or web address]: Tone Flores on 10/20/18 12:32 pm * Is the patient Alert and Oriented? No * PCP VICKI * Pharmacy [facility] * Preadmission Environment Home with Family * List name and contact numbers for known caregivers / representatives who currently or will assist patient after discharge: UTE SUTTON, External Providers External Provider: TAYO Santana Next Contact Date: 10/20/2018 Service Request Date: Service Type: Resolution: Reviewer: Comments: Coverage Notice Reviewer: [id number] Andrey Flores Notice Issued Date-Time: 10/19/2018 14:45 Notice Type: Patient Choice Letter Notice Delivered To: Family Member Relationship to Patient: Spouse Manager Product Name: LESLEY KOROMA Delivery Method: HAND - Hand Delivered Aleida Days: Prior Verbal Notification: Recipient Understood Notice: Yes Recipient Signature: Med Rec Note Co-signed by Attending: Coverage [facility] Reviewer: [id number] Andrey Flores Notice Issued Date-Time: 10/19/2018 9:30 Notice Type: Patient Choice Letter Notice Delivered To: Patient Relationship to Patient: Manager Product Name: Delivery Method: HAND - Hand Delivered Aleida Days: Prior Verbal Notification: Recipient Understood Notice: Yes Recipient Signature: Yes Med Rec Note Co-signed by Attending: Coverage Notice Comment: NO HOME HEALTH PROVIDER PREFERENCE Reviewer: [id number] Andrey Flores Notice Issued Date-Time: 10/19/2018 9:30 Notice Type: IM Discharge Notice Notice Delivered To: Patient Relationship to Patient: Manager Product Name: Delivery Method: HAND - Hand Delivered Aleida Days: Prior Verbal Notification: Recipient Understood Notice: Yes Recipient Signature: Yes Med Rec Note Co-signed by Attending: Coverage Notice Comment: Last DP export: 10/20/18 11:38 a Patient Name: KAREEM KOROMA Page 10406 at 1316 All edits/amendments must be made on the electronic document DICTATION DATE: 10/20/18 1316 ASSISTANT TO THE CEO: ANGELITO 10/20/18 1316 RPT#: [id number] DC DATE: STATUS: ADM IN [facility] [address] [place] [address] END OF REPORT
--- NOTE | 2018-10-20 13:53 | MORECARE ---
CASE MANAGEMENT DISCHARGE SUMMARY PATIENT: KAREEM KOROMA UNIT: [id number] ADM DATE: 10/13/18 AGE: 77 : 42 SEX: M ROOM/BED: D.3743 AUTHOR: CLEMENTINE,DOC PHYSICIAN: REFERRING PHYSICIAN: NIDA BALLARD MD DATE OF SERVICE: 10/20/18 Discharge Plan Patient Name: KAREEM KOROMA Facility: [facility]:[place] : 1940 Planned Disposition: Penitentiary Facility Anticipated Discharge Date: 10/20/18 Discharge Date: Expected LOS: 7 Initial Reviewer: [id number] Initial Review Date: 10/14/2018 Generated: 10/20/18 2:53 pm Comments DCP- Discharge Planning Updated by [id number]: Tone Flores on 10/20/18 12:[address] Patient Name: KAREEM KOROMA Encounter No: [id number] : 1940 Primary Insurance: MEDICARE A & B Anticipated DC Date: 10-21-2018 Planned Disposition: Penitentiary Facility External Planned Provider: [facility]ICARE REHAB BED DCP follow-up note: CM MET WITH PT IN ROOM TO DISCUSS DISCHARGE NEEDS AND PLANNING. CM DISCUSSED AVAILABILITY OF HOME HEALTH, REHAB SERVICES AND MEDICAL EQUIPMENT. PT REPORTS HE DOES NOT KNOW IF HE CAN GO HOME BUT IF HE DOES, HE WANTS HOME HEALTH. CHOICE SIGNED FOR NO PROVIDER PREFERENCE. IMPORTANT MESSAGE FROM MEDICARE PROVIDED AND EXPLAINED. PT ASKE3D CM TO CALL LESLEY TO DISCUSS DISCHARGE PLANS. CM CALLED LESLEY KOROMA, DISCUSSED DISCHARGE NEEDS, REVIEWED THERAPY NOTES. LESLEY WOULD LIKE PT IN REHAB AT [facility], THEY ARE FAMILIAR WITH PT AND PT IS FAMILIAR WITH FACILITY; CHOICE LETTER COMPLETED. CM NOTIFED JASWANT OF REFERRAL AT [phone]. CM FAXED REFERRAL TO [facility] AT [phone]. CM WAITING ADMISISON DETERMINATION FOR REHAB SERVICES AT [facility]. Tone Flores, CASE MANAGEMENT Appended by Tone Flores on 10/20/2018 13:15 CDT: CM [facility], THEY WILL ACCEPT PT TODAY IF [facility] CLEARANCE IS RECEIVED. CM COMPLETED [facility] SCREENING FORM, OBTAINED SIGNATURES FROM BEAMSTER ESTELA AND PT. CM FAXED TO [employer]. CM WAITING [place] SCREENING CLEARANCE TO ENTER PRISON. [facility] WILL ACCEPT ONCE CLEARED BY [facility]. FOR DISCHARGE, FAX DISCHARGE INFORMATION TO [facility] AT [phone]; NURSE REPORT TO BE CALLED TO [facility], . [facility] TO ARRANGE VAN TRANSPORTATION TONE FLORES, CASE MANAGEMENT. DCP- Discharge Planning Updated by [id number]: Abi Randolph on 10/14/18 2:[address] Patient Name: KAREEM KOROMA Admission Status: ER Accout number: [id number] Admission Date: 10-13-2018 : 1940 Admission Diagnosis:HYPERTENSIVE URGENCY Attending: NIDA BALLARD Current LOS: 1 Anticipated DC Date: Planned Disposition: Primary Insurance: MEDICARE A & B Discharge Planning Comments: PATIENT WAS SLEEPING AND NO FAMILY HERE AT PRESENT. CM REVIEWED THE CHART AND IT APPEARS HE HAS BEEN CONFUSED. HE LIVES WITH HIS SPOUSE IN [place]. HE HAS HEMODYALISIS 3 TIMES PER WEEK BUT DIDN'T GO LAST TIME FOR UNKNOWN REASON. CM WILL ATTEMPT TO CONTACT PATIENT'S CONCERNING DC NEEDS. Assisted Living Manager: Abi Randolph DCPIA - Discharge Planning Initial Assessment Updated by [email or web address]: Tone Flores on 10/20/18 12:32 pm * Is the patient Alert and Oriented? No * PCP VICKI * Pharmacy [facility] * Preadmission Environment Home with Family * List name and contact numbers for known caregivers / representatives who currently or will assist patient after discharge: LESLEY, SPOUSE, Coverage Notice Reviewer: [id number] Flores Notice Issued Date-Time: 10/19/2018 14:45 Notice Type: Patient Choice Letter Notice Delivered To: Family Member Relationship to Patient: Spouse Bicycle Repairman Name: LESLEY KOROMA Delivery Method: HAND - Hand Delivered Aleida Days: Prior Verbal Notification: Recipient Understood Notice: Yes Recipient Signature: Med Rec Note Co-signed by Attending: Coverage Notice Comment: TRAN [facility] Reviewer: [id number] Andrey Flores Notice Issued Date-Time: 10/19/2018 9:30 Notice Type: Patient Choice Letter Notice Delivered To: Patient Relationship to Patient: Bicycle Repairman Name: Delivery Method: HAND - Hand Delivered Aleida Days: Prior Verbal Notification: Recipient Understood Notice: Yes Recipient Signature: Yes Med Rec Note Co-signed by Attending: Coverage Notice Comment: NO HOME HEALTH PROVIDER PREFERENCE Reviewer: [id number] Andrey Flores Notice Issued Date-Time: 10/19/2018 9:30 Notice Type: IM Discharge Notice Notice Delivered To: Patient Relationship to Patient: Bicycle Repairman Name: Delivery Method: HAND - Hand Delivered Aleida Days: Prior Verbal Notification: Recipient Understood Notice: Yes Recipient Signature: Yes Med Rec Note Co-signed by Attending: Coverage Notice Comment: Last DP export: 10/20/18 12:16 p Patient Name: KAREEM KOROMA Page 64996 at 1353 All edits/amendments must be made on the electronic document DICTATION DATE: 10/20/18 1352 DRY PLASTERER: ANGELITO 10/20/18 1352 RPT#: [id number] DC DATE: STATUS: ADM IN [facility] [address] [place] [address] END OF REPORT
--- NOTE | 2018-10-20 14:28 | MORECARE ---
CASE MANAGEMENT DISCHARGE SUMMARY PATIENT: KAREEM KOROMA UNIT: [id number] ADM DATE: 10/13/18 AGE: 77 : 42 SEX: M ROOM/BED: D.3503 AUTHOR: CLEMENTINE,DOC PHYSICIAN: REFERRING PHYSICIAN: NIDA BALLARD MD DATE OF SERVICE: 10/20/18 Discharge Plan Patient Name: KAREEM KOROMA Facility: [facility]:[place] : 1940 Planned Disposition: Nursing Home Facility Anticipated Discharge Date: 10/20/18 Discharge Date: Expected LOS: 7 Initial Reviewer: [id number] Initial Review Date: 10/14/2018 Generated: 10/20/18 3:28 pm Comments DCP- Discharge Planning Updated by [id number]: Tone Flores on 10/20/18 1:[address] Patient Name: KAREEM KOROMA Encounter No: [id number] : 1940 Primary Insurance: MEDICARE A & B Anticipated DC Date: 10-21-2018 Planned Disposition: Nursing Home Facility External Planned Provider: [facility] B[facility] DCP follow-up note: CM MET WITH PT IN ROOM TO DISCUSS DISCHARGE NEEDS AND PLANNING. CM DISCUSSED AVAILABILITY OF HOME HEALTH, REHAB SERVICES AND MEDICAL EQUIPMENT. PT REPORTS HE DOES NOT KNOW IF HE CAN GO HOME BUT IF HE DOES, HE WANTS HOME HEALTH. CHOICE SIGNED FOR NO PROVIDER PREFERENCE. IMPORTANT MESSAGE FROM MEDICARE PROVIDED AND EXPLAINED. PT ASKE3D CM TO CALL LESLEY TO DISCUSS DISCHARGE PLANS. CM CALLED LESLEY KOROMA, DISCUSSED DISCHARGE NEEDS, REVIEWED THERAPY NOTES. LESLEY WOULD LIKE PT IN REHAB AT PENDING SALE TO [facility], THEY ARE FAMILIAR WITH PT AND PT IS FAMILIAR WITH FACILITY; CHOICE LETTER COMPLETED. CM NOTIFED JASWANT OF REFERRAL AT [phone]. CM FAXED REFERRAL TO [facility] AT [phone]. CM WAITING ADMISISON DETERMINATION FOR REHAB SERVICES AT [facility]. Tone Flores, CASE MANAGEMENT Appended by Tone Flores on 10/20/2018 13:15 CDT: CM RECEIVED CALL FROM JASWANT [facility], THEY WILL ACCEPT PT TODAY IF [facility] CLEARANCE IS RECEIVED. CM COMPLETED [facility] SCREENING FORM, OBTAINED SIGNATURES FROM MUCK MINER ESTELA AND PT. CM FAXED TO [employer]. CM WAITING [facility] SCREENING CLEARANCE TO ENTER LONG-TERM. PENDING SALE TO [facility] WILL ACCEPT ONCE CLEARED [facility]. FOR DISCHARGE, FAX DISCHARGE INFORMATION TO [facility] AT [phone]; NURSE REPORT TO BE CALLED TO [facility], . PENDING SALE TO [facility] TO ARRANGE VAN TRANSPORTATION TONE FLORES, CASE MANAGEMENT. Appended by Tone Flores on 10/20/2018 14:24 CDT: CM RECEIVED [employer] DETERMINATION OF NON PASSR, PT MAY ENTER LONG-TERM FACILITY. CM NOTIFIED JASWANT OF [facility]. FOR DISCHARGE, FAX DISCHARGE INFORMATION TO [facility] AT [phone]; NURSE REPORT TO BE CALLED TO [facility], . PENDING SALE TO [facility] TO ARRANGE VAN TRANSPORTATION TONE FLORES, CASE MANAGEMENT. DCP- Discharge Planning Updated by [id number]: Abi Randolph on 10/14/18 2:[address] Patient Name: KAREEM KOROMA Admission Status: ER Accout number: [id number] Admission Date: 10-13-2018 : 1940 Admission Diagnosis:HYPERTENSIVE URGENCY Attending: NIDA BALLARD Current LOS: 1 Anticipated DC Date: Planned Disposition: Primary Insurance: MEDICARE A & B Discharge Planning Comments: PATIENT WAS SLEEPING AND NO FAMILY HERE AT PRESENT. CM REVIEWED THE CHART AND IT APPEARS HE HAS BEEN CONFUSED. HE LIVES WITH HIS SPOUSE IN [place]. HE HAS HEMODYALISIS 3 TIMES PER WEEK BUT DIDN'T GO LAST TIME FOR UNKNOWN REASON. CM WILL ATTEMPT TO CONTACT PATIENT'S CONCERNING DC NEEDS. Stippler: Abi Randolph DCPIA - Discharge Planning Initial Assessment Updated by [id number]: Tone Flores on 10/20/18 12:32 pm * Is the patient Alert and Oriented? No * PCP VICKI * Pharmacy [facility] * Preadmission Environment Home with Family * List name and contact numbers for known caregivers / representatives who currently or will assist patient after discharge: LESLEY, SPOUSE, Coverage Notice Reviewer: [id number] - Tone Flores Notice Issued Date-Time: 10/19/2018 14:45 Notice Type: Patient Choice Letter Notice Delivered To: Family Member Relationship to Patient: Spouse Engagement Mgr Name: LSELEY KOROMA Delivery Method: HAND - Hand Delivered Aleida Days: Prior Verbal Notification: Recipient Understood Notice: Yes Recipient Signature: Med Rec Note Co-signed by Attending: Coverage Notice Comment: LUANNE RECIO Reviewer: [id number] Andrey Flores Notice Issued Date-Time: 10/19/2018 9:30 Notice Type: Patient Choice Letter Notice Delivered To: Patient Relationship to Patient: Engagement Mgr Name: Delivery Method: HAND - Hand Delivered Aleida Days: Prior Verbal Notification: Recipient Understood Notice: Yes Recipient Signature: Yes Med Rec Note Co-signed by Attending: Coverage Notice Comment: NO HOME HEALTH PROVIDER PREFERENCE Reviewer: [id number] Flores Notice Issued Date-Time: 10/19/2018 9:30 Notice Type: IM Discharge Notice Notice Delivered To: Patient Relationship to Patient: Engagement Mgr Name: Delivery Method: HAND - Hand Delivered Aleida Days: Prior Verbal Notification: Recipient Understood Notice: Yes Recipient Signature: Yes Med Rec Note Co-signed by Attending: Coverage Notice Comment: Last DP export: 10/20/18 12:53 p Patient Name: KAREEM KOROMA Page [id number] at 1428 All edits/amendments must be made on the electronic document DICTATION DATE: 10/20/181427 FORMULA TECHNICIAN: ANGELITO 10/20/181427 RPT#: [id number] DC DATE: STATUS: ADM IN [facility] [address] [place] [address] END OF REPORT
--- NOTE | 2018-10-20 14:47 | MORECARE ---
CASE MANAGEMENT DISCHARGE SUMMARY PATIENT: KAREEM KOROMA UNIT: [id number] ADM DATE: 10/13/18 AGE: 77 : 42 SEX: M ROOM/BED: D.2133 AUTHOR: [place] PHYSICIAN: REFERRING PHYSICIAN: NIDA BALLARD MD DATE OF SERVICE: 10/20/18 Discharge Plan Patient Name: KAREEM KOROMA Facility: [facility]:[place] : 1940 Planned Disposition: Prison Facility Anticipated Discharge Date: 10/20/18 Discharge Date: Expected LOS: 7 Initial Reviewer: [id number] Initial Review Date: 10/14/2018 Generated: 10/20/18 3:47 pm Comments DCP- Discharge Planning Updated by [id number]: Tone Flores on 10/20/18 1:[address] Patient Name: KAREEM KOROMA Encounter No: [id number] : 1940 Primary Insurance: MEDICARE A & B Anticipated DC Date: 10-20-2018 Planned Disposition: Prison Facility External Planned Provider: [facility], MEDICARE REHAB BED DCP follow-up note: [facility] HAS ACCEPTED PT FOR REHAB, [facility] HAS APPROVED PT'S ADMISSION TO RESIDENTIAL FACILITYI FOR REHAB. CM FAXED UPDATE TO [facility]ASWANT OF [facility], . FOR DISCHARGE, FAX DISCHARGE INFORMATION TO [facility] AT [phone]; NURSE REPORT TO BE CALLED TO [facility], . [facility] TO ARRANGE VAN TRANSPORTATION TONE FLORES, CASE MANAGEMENT. DCP- Discharge Planning Updated by [email or web address]: Tone Flores on 10/20/18 1:[address] Patient Name: KAREEM KOROMA Encounter No: [id number] : 1940 Primary Insurance: MEDICARE A & B Anticipated DC Date: 10-21-2018 Planned Disposition: Prison Facility External Planned Provider: [facility], MEDICARE REHAB BED DCP follow-up note: CM MET WITH PT IN ROOM TO DISCUSS DISCHARGE NEEDS AND PLANNING. CM DISCUSSED AVAILABILITY OF HOME HEALTH, REHAB SERVICES AND MEDICAL EQUIPMENT. PT REPORTS HE DOES NOT KNOW IF HE CAN GO HOME BUT IF HE DOES, HE WANTS HOME HEALTH. CHOICE SIGNED FOR NO PROVIDER PREFERENCE. IMPORTANT MESSAGE FROM MEDICARE PROVIDED AND EXPLAINED. PT ASKE3D CM TO CALL LESLEY TO DISCUSS DISCHARGE PLANS. CM CALLED LESLEY KOROMA, DISCUSSED DISCHARGE NEEDS, REVIEWED THERAPY NOTES. LESLEY WOULD LIKE PT IN REHAB AT [facility], THEY ARE FAMILIAR WITH PT AND PT IS FAMILIAR WITH FACILITY; CHOICE LETTER COMPLETED. CM NOTIFED JASWANT OF REFERRAL AT [phone]. CM FAXED REFERRAL TO [facility] AT [phone]. CM WAITING ADMISISON DETERMINATION FOR REHAB SERVICES AT [facility]. Tone Flores, CASE MANAGEMENT Appended by Tone Flores on 10/20/2018 13:15 CDT: CM RECEIVED CALL FROM JASWANT [facility], THEY WILL ACCEPT PT TODAY IF [facility] CLEARANCE IS RECEIVED. CM COMPLETED [facility] SCREENING FORM, OBTAINED SIGNATURES FROM [place] PALMER AND PT. CM FAXED TO [facility]. CM WAITING [facility] SCREENING CLEARANCE TO ENTER RESIDENTIAL. [facility] WILL ACCEPT ONCE CLEARED BY [facility]. FOR DISCHARGE, FAX DISCHARGE INFORMATION TO [facility] AT [phone]; NURSE REPORT TO BE CALLED TO [facility], . [facility] TO ARRANGE VAN TRANSPORTATION [facility] CASE MANAGEMENT. Appended by Tone Flores on 10/20/2018 14:24 CDT: CM RECEIVED [facility] DETERMINATION OF NON PASSR, PT MAY ENTER RESIDENTIAL FACILITY. CM NOTIFIED JASWANT [facility]. FOR DISCHARGE, FAX DISCHARGE INFORMATION TO [facility] AT [phone]; NURSE REPORT TO BE CALLED TO [facility], . [facility] TO ARRANGE VAN TRANSPORTATION [facility] CASE MANAGEMENT. DCP- Discharge Planning Updated by [id number]: Abi Randolph on 10/14/18 2:[address] Patient Name: KAREEM KOROMA Admission Status: ER Accout number: [id number] Admission Date: 10-13-2018 : 1940 Admission Diagnosis:HYPERTENSIVE URGENCY Attending: NIDA BALLARD Current LOS: 1 Anticipated DC Date: Planned Disposition: Primary Insurance: MEDICARE A & B Discharge Planning Comments: PATIENT WAS SLEEPING AND NO FAMILY HERE AT PRESENT. CM REVIEWED THE CHART AND IT APPEARS HE HAS BEEN CONFUSED. HE LIVES WITH HIS SPOUSE IN [place]. HE HAS HEMODYALISIS 3 TIMES PER WEEK BUT DIDN'T GO LAST TIME FOR UNKNOWN REASON. CM WILL ATTEMPT TO CONTACT PATIENT'S CONCERNING DC NEEDS. General Labor Forklift Operator: Abi Randolph DCPIA - Discharge Planning Initial Assessment Updated by [email or web address]: Tone Flores on 10/20/18 12:32 pm * Is the patient Alert and Oriented? No * PCP VICKI * Pharmacy [facility] * Preadmission Environment Home with Family * List name and contact numbers for known caregivers / representatives who currently or will assist patient after discharge: LESLEY, SPOUSE, Coverage Notice Reviewer: SHALONDA Flores Notice Issued Date-Time: 10/19/2018 14:45 Notice Type: Patient Choice Letter Notice Delivered To: Family Member Relationship to Patient: Spouse Asset Protection Specialist Name: LESLEY KOROMA Delivery Method: HAND - Hand Delivered Aleida Days: Prior Verbal Notification: Recipient Understood Notice: Yes Recipient Signature: Med Rec Note Co-signed by Attending: Coverage Notice Comment: [facility] Reviewer: [id number] Flores Notice Issued Date-Time: 10/19/2018 9:30 Notice Type: Patient Choice Letter Notice Delivered To: Patient Relationship to Patient: Asset Protection Specialist Name: Delivery Method: HAND - Hand Delivered Aleida Days: Prior Verbal Notification: Recipient Understood Notice: Yes Recipient Signature: Yes Med Rec Note Co-signed by Attending: Coverage Notice Comment: NO HOME HEALTH PROVIDER PREFERENCE Reviewer: [id number] Flores Notice Issued Date-Time: 10/19/2018 9:30 Notice Type: IM Discharge Notice Notice Delivered To: Patient Relationship to Patient: Asset Protection Specialist Name: Delivery Method: HAND - Hand Delivered Aleida Days: Prior Verbal Notification: Recipient Understood Notice: Yes Recipient Signature: Yes Med Rec Note Co-signed by Attending: Coverage Notice Comment: Last DP export: 10/20/18 1:28 p Patient Name: KAREEM KOROMA Page [id number] at 1440 All edits/amendments must be made on the electronic document DICTATION DATE: 10/20/18 9837 PROJECT MANAGEMENT ANALYST: DM 10/20/18 144 RPT#: [id number] DC DATE: STATUS: ADM IN [facility] [address] [place] [address] END OF REPORT
--- NOTE | 2018-10-20 16:13 | MORECARE ---
CASE MANAGEMENT DISCHARGE SUMMARY PATIENT: KAREEM KOROMA UNIT: [id number] ADM DATE: 10/13/18 AGE: 77 : 42 SEX: M ROOM/BED: D.8083 AUTHOR: CLEMENTINE,DOC PHYSICIAN: REFERRING PHYSICIAN: NIDA BALLARD MD DATE OF SERVICE: 10/20/18 Discharge Plan Patient Name: KAREEM KOROMA Facility: [facility]:[place] : 1940 Planned Disposition: Detention Facility Anticipated Discharge Date: 10/20/18 Discharge Date: Expected LOS: 7 Initial Reviewer: [id number] Initial Review Date: 10/14/2018 Generated: 10/20/18 5:13 pm Comments DCP- Discharge Planning Updated by [email or web address]: Emerson Flores on 10/20/18 3:[address] Patient Name: KAREEM KOROMA Encounter No: [id number] : 1940 Primary Insurance: MEDICARE A & B Anticipated DC Date: 10-20-2018 Planned Disposition: Detention Facility External Planned Provider: [facility], MEDICARE REHAB BED DCP follow-up note: [facility] HAS ACCEPTED PT FOR REHAB, [facility] HAS APPROVED PT'S ADMISSION TO LONG-TERM FACILITYI FOR REHAB. MICHELLE FAXED UPDATE TO ABHISHEK [facility], . FOR DISCHARGE, FAX DISCHARGE INFORMATION TO [facility] AT [phone]; NURSE REPORT TO BE CALLED TO [facility], [facility] EMERSON FLORES CASE MANAGEMENT. Appended by Emerson Flores on 10/20/2018 16:10 CDT: CM RECEIVED DISCHARGE ORDERS, NOTIFIED ABHISHEK AND REQUESTED VAN BOILERMAKER MECHANIC, FAXED DISCHARGE INFORMATION TO [facility] AT [phone]. NURSE REPORT TO BE CALLED TO [facility], . [facility] FLORES CASE MANAGEMENT. Appended by Emerson Flores on 10/20/2018 16:12 CDT: CM CALLED LESLEY KOROMA, NOTIFIED OF PT'S DISCHARGE TO REHAB TODAY, SHE IS IN AGREEMENT WITH PLAN AND WILL SEE PT AT [facility]. [facility] FLORES CASE MANAGEMENT DCP- Discharge Planning Updated by [id number]: Emerson Flores on 10/20/18 1:[address] Patient Name: KAREEM KOROMA Encounter No: [id number] : 1940 Primary Insurance: MEDICARE A & B Anticipated DC Date: 10-21-2018 Planned Disposition: Detention Facility External Planned Provider: [facility] MEDICARE REHAB BED DCP follow-up note: CM MET WITH PT IN ROOM TO DISCUSS DISCHARGE NEEDS AND PLANNING. CM DISCUSSED AVAILABILITY OF HOME HEALTH, REHAB SERVICES AND MEDICAL EQUIPMENT. PT REPORTS HE DOES NOT KNOW IF HE CAN GO HOME BUT IF HE DOES, HE WANTS HOME HEALTH. CHOICE SIGNED FOR NO PROVIDER PREFERENCE. IMPORTANT MESSAGE FROM MEDICARE PROVIDED AND EXPLAINED. PT ASKE3D CM TO CALL LESLEY TO DISCUSS DISCHARGE PLANS. CM CALLED LESLEY KOROMA, DISCUSSED DISCHARGE NEEDS, REVIEWED THERAPY NOTES. LESLEY WOULD LIKE PT IN REHAB AT [facility], THEY ARE FAMILIAR WITH PT AND PT IS FAMILIAR WITH FACILITY; CHOICE LETTER COMPLETED. CM NOTIFED [facility] OF REFERRAL AT [phone]. CM FAXED REFERRAL TO [facility] AT [phone]. CM WAITING ADMISISON DETERMINATION FOR REHAB SERVICES AT [facility]. Emerson Flores, CASE MANAGEMENT Appended by Emerson Flores on 10/20/2018 13:15 CDT: CM RECEIVED CALL FROM MERGED WITH [facility], THEY WILL ACCEPT PT TODAY IF [facility] CLEARANCE IS RECEIVED. CM COMPLETED [facility] SCREENING FORM, OBTAINED SIGNATURES FROM [facility] PALMER AND PT. CM FAXED TO [facility]. CM WAITING [facility] SCREENING CLEARANCE TO ENTER LONG-TERM. [facility] WILL ACCEPT ONCE CLEARED BY [facility]. FOR DISCHARGE, FAX DISCHARGE INFORMATION TO [facility] AT [phone]; NURSE REPORT TO BE CALLED TO [facility], . [facility] TO ARRANGE VAN TRANSPORTATION EMERSON FLORES CASE MANAGEMENT. Appended by Emerson Flores on 10/20/2018 14:24 CDT: CM RECEIVED [facility] DETERMINATION OF NON PASSR, PT MAY ENTER LONG-TERM FACILITY. CM NOTIFIED [facility]ANT [facility]. FOR DISCHARGE, FAX DISCHARGE INFORMATION TO [facility] AT [phone]; NURSE REPORT TO BE CALLED TO [facility], . [facility] TO ARRANGE VAN TRANSPORTATION EMERSON FLORES, CASE MANAGEMENT. DCP- Discharge Planning Updated by [id number]: Abi Tomasa on 10/14/18 2:[address] Patient Name: KAREEM KOROMA Admission Status: ER Accout number: [id number] Admission Date: 10-13-2018 : 1940 Admission Diagnosis:HYPERTENSIVE URGENCY Attending: NIDA BALLARD Current LOS: 1 Anticipated DC Date: Planned Disposition: Primary Insurance: MEDICARE A & B Discharge Planning Comments: PATIENT WAS SLEEPING AND NO FAMILY HERE AT PRESENT. CM REVIEWED THE CHART AND IT APPEARS HE HAS BEEN CONFUSED. HE LIVES WITH HIS SPOUSE IN [place]. HE HAS HEMODYALISIS 3 TIMES PER WEEK BUT DIDN'T GO LAST TIME FOR UNKNOWN REASON. CM WILL ATTEMPT TO CONTACT PATIENT'S CONCERNING DC NEEDS. Arts And Sciences Dean: Abi Randolph DCPIA - Discharge Planning Initial Assessment Updated by [id number]: Emerson Flores on 10/20/18 12:32 pm * Is the patient Alert and Oriented? No * PCP VICKI * Pharmacy [facility] * Preadmission Environment Home with Family * List name and contact numbers for known caregivers / representatives who currently or will assist patient after discharge: UTE SUTTON, Coverage Notice Reviewer: SHALONDA Flores Notice Issued Date-Time: 10/19/2018 14:45 Notice Type: Patient Choice Letter Notice Delivered To: Family Member Relationship to Patient: Spouse Concrete Float Maker Name: LESLEY KOROMA Delivery Method: HAND - Hand Delivered Aleida Days: Prior Verbal Notification: Recipient Understood Notice: Yes Recipient Signature: Med Rec Note Co-signed by Attending: Coverage Notice Comment: [facility] Reviewer: [id number] Flores Notice Issued Date-Time: 10/19/2018 9:30 Notice Type: Patient Choice Letter Notice Delivered To: Patient Relationship to Patient: Concrete Float Maker Name: Delivery Method: HAND - Hand Delivered Aleida Days: Prior Verbal Notification: Recipient Understood Notice: Yes Recipient Signature: Yes Med Rec Note Co-signed by Attending: Coverage Notice Comment: NO HOME HEALTH PROVIDER PREFERENCE Reviewer: [id number] Andrey Flores Notice Issued Date-Time: 10/19/2018 9:30 Notice Type: IM Discharge Notice Notice Delivered To: Patient Relationship to Patient: Concrete Float Maker Name: Delivery Method: HAND - Hand Delivered Aleida Days: Prior Verbal Notification: Recipient Understood Notice: Yes Recipient Signature: Yes Med Rec Note Co-signed by Attending: Coverage Notice Comment: Last DP export: 10/20/18 1:47 p Patient Name: KAREEM KOROMA Page 15287 at 1613 All edits/amendments must be made on the electronic document DICTATION DATE: 10/20/18 1613 SKETCH MAKER: ANGELITO 10/20/18 1613 RPT#: [id number] DC DATE: STATUS: ADM IN [facility] [address] [place] [address] END OF REPORT
--- NOTE | 2018-10-20 16:49 | MORECARE ---
CASE MANAGEMENT DISCHARGE SUMMARY PATIENT: KAREEM KOROMA UNIT: [id number] ADM DATE: 10/13/18 AGE: 77 : 42 SEX: M ROOM/BED: D.2923 AUTHOR: CLEMENTINE,DOC PHYSICIAN: REFERRING PHYSICIAN: NIDA BALLARD MD DATE OF SERVICE: 10/20/18 Discharge Plan Patient Name: KAREEM KOROMA Facility: [facility]:[place] : 1940 Planned Disposition: Nursing Home Facility Anticipated Discharge Date: 10/20/18 Discharge Date: 10/20/2018 Expected LOS: 7 Initial Reviewer: [id number] Initial Review Date: 10/14/2018 Generated: 10/20/18 5:48 pm Comments DCP- Discharge Planning Updated by [id number]: Emerson Flores on 10/20/18 3:[address] Patient Name: KAREEM KOROMA Encounter No: [id number] : 1940 Primary Insurance: MEDICARE A & B Anticipated DC Date: 10-20-2018 Planned Disposition: Nursing Home Facility External Planned Provider: [facility], MEDICARE REHAB BED DCP follow-up note: [facility] HAS ACCEPTED PT FOR REHAB, [facility] HAS APPROVED PT'S ADMISSION TO SNF FACILITYI FOR REHAB. MICHELLE FAXED UPDATE TO [facility], . FOR DISCHARGE, [facility] AT [phone]; NURSE REPORT TO BE CALLED TO [facility], [facility] EMERSON FLORES CASE MANAGEMENT. Appended by Emerson Flores on 10/20/2018 16:10 CDT: CM RECEIVED DISCHARGE ORDERS, NOTIFIED ABHISHEK AND REQUESTED VAN CUT OFF SAW TENDER METAL, FAXED DISCHARGE INFORMATION TO [facility] AT [phone]. [facility], . [facility] TO ARRANGE VAN TRANSPORTATION EM[facility] FLORES CASE MANAGEMENT. Appended by Emerson Flores on 10/20/2018 16:12 CDT: CM CALLED LESLEY KOROMA, NOTIFIED OF PT'S DISCHARGE TO REHAB TODAY, SHE IS IN AGREEMENT WITH PLAN AND WILL SEE PT AT [facility]. EMERSON FLORES, CASE MANAGEMENT Appended by Emerson Flores on 10/20/2018 16:43 CDT: CM RECEIVED CALL FROM KATIA OF [facility], SHE HAS NOT RECEIVED DISCHARGE MEDCIATION LIST, REQUESTED FAX TO [facility]. CM FAXED DIRECT TO [facility] AT [phone], NOTIFIED JASWANT, CLINICAL COORDINATOR FOR [facility]. EMERSON FLORES, CASE MANAGEMENT DCP- Discharge Planning Updated by [id number]: Emerson Flores on 10/20/18 1:[address] Patient Name: KAREEM KOROMA Encounter No: [id number] : 1940 Primary Insurance: MEDICARE A & B Anticipated DC Date: 10-21-2018 Planned Disposition: Nursing Home Facility External Planned Provider: [facility] MEDICARE REHAB BED DCP follow-up note: CM MET WITH PT IN ROOM TO DISCUSS DISCHARGE NEEDS AND PLANNING. CM DISCUSSED AVAILABILITY OF HOME HEALTH, REHAB SERVICES AND MEDICAL EQUIPMENT. PT REPORTS HE DOES NOT KNOW IF HE CAN GO HOME BUT IF HE DOES, HE WANTS HOME HEALTH. CHOICE SIGNED FOR NO PROVIDER PREFERENCE. IMPORTANT MESSAGE FROM MEDICARE PROVIDED AND EXPLAINED. PT ASKE3D CM TO CALL LESLEY TO DISCUSS DISCHARGE PLANS. CM CALLED LESLEY KOROMA, DISCUSSED DISCHARGE NEEDS, REVIEWED THERAPY NOTES. LESLEY WOULD LIKE PT IN REHAB AT [facility], THEY ARE FAMILIAR WITH PT AND PT IS FAMILIAR WITH FACILITY; CHOICE LETTER COMPLETED. CM NOTIFED JASWANT OF REFERRAL AT [phone]. CM FAXED REFERRAL TO [facility] AT [phone]. CM WAITING ADMISISON DETERMINATION FOR REHAB SERVICES AT [facility]. Emerson Flores, CASE MANAGEMENT Appended by Emerson Flores on 10/20/2018 13:15 CDT: CM RECEIVED CALL FROM JASWANT [facility], THEY WILL ACCEPT PT TODAY IF [facility] CLEARANCE IS RECEIVED. CM COMPLETED [facility] SCREENING FORM, OBTAINED SIGNATURES FROM [facility] PALMER AND PT. CM FAXED TO [facility]. CM WAITING [facility] SCREENING CLEARANCE TO ENTER SNF. [facility] WILL ACCEPT ONCE CLEARED BY [facility]. FOR DISCHARGE, FAX DISCHARGE INFORMATION TO [facility] AT [phone]; NURSE REPORT TO BE CALLED TO [facility], . [facility]SP[facility]ATION EMERSON FLORES, CASE MANAGEMENT. Appended by Emerson Flores on 10/20/2018 14:24 CDT: CM RECEIVED [facility] DETERMINATION OF NON PASSR, PT MAY ENTER SNF FACILITY. CM NOTIFIED JASWANT OF [facility]. FOR DISCHARGE, FAX DISCHARGE INFORMATION TO [facility] AT [phone]; NURSE REPORT TO BE CALLED TO [facility], . [facility] EMERSON FLORES, CASE MANAGEMENT. DCP- Discharge Planning Updated by [id number]: Abi Randolph on 10/14/18 2:[address] Patient Name: KAREEM KOROMA Admission Status: ER Accout number: [id number] Admission Date: 10-13-2018 : 1940 Admission Diagnosis:HYPERTENSIVE URGENCY Attending: NIDA BALLARD Current LOS: 1 Anticipated DC Date: Planned Disposition: Primary Insurance: MEDICARE A & B Discharge Planning Comments: PATIENT WAS SLEEPING AND NO FAMILY HERE AT PRESENT. CM REVIEWED THE CHART AND IT APPEARS HE HAS BEEN CONFUSED. HE LIVES WITH HIS SPOUSE IN [place]. HE HAS HEMODYALISIS 3 TIMES PER WEEK BUT DIDN'T GO LAST TIME FOR UNKNOWN REASON. CM WILL ATTEMPT TO CONTACT PATIENT'S CONCERNING DC NEEDS. Detective Homicide Squad: Abi Randolph DCPIA - Discharge Planning Initial Assessment Updated by [id number]: Emerson Flores on 10/20/18 12:32 pm * Is the patient Alert and Oriented? No * PCP VICKI * Pharmacy [facility] * Preadmission Environment Home with Family * List name and contact numbers for known caregivers / representatives who currently or will assist patient after discharge: LESLEY, SPOUSE, Coverage Notice Reviewer: [id number] - Emerson Flores Notice Issued Date-Time: 10/19/2018 14:45 Notice Type: Patient Choice Letter Notice Delivered To: Family Member Relationship to Patient: Spouse Engraving Press Operator Name: LESLEY KOROMA Delivery Method: HAND - Hand Delivered Aleida Days: Prior Verbal Notification: Recipient Understood Notice: Yes Recipient Signature: Med Rec Note Co-signed by Attending: Coverage Notice Comment: [facility] Reviewer: [id number] Andrey Flores Notice Issued Date-Time: 10/19/2018 9:30 Notice Type: Patient Choice Letter Notice Delivered To: Patient Relationship to Patient: Engraving Press Operator Name: Delivery Method: HAND - Hand Delivered Aleida Days: Prior Verbal Notification: Recipient Understood Notice: Yes Recipient Signature: Yes Med Rec Note Co-signed by Attending: Coverage Notice Comment: NO HOME HEALTH PROVIDER PREFERENCE Reviewer: [id number] Andrey Flores Notice Issued Date-Time: 10/19/2018 9:30 Notice Type: IM Discharge Notice Notice Delivered To: Patient Relationship to Patient: Engraving Press Operator Name: Delivery Method: HAND - Hand Delivered Aleida Days: Prior Verbal Notification: Recipient Understood Notice: Yes Recipient Signature: Yes Med Rec Note Co-signed by Attending: Coverage Notice Comment: Last DP export: 10/20/18 3:13 p Patient Name: KAREEM KOROMA Page 03487 at 1649 All edits/amendments must be made on the electronic document DICTATION DATE: 10/20/181647 POLYMER TESTER: ANGELITO 10/20/181647 RPT#: [id number] DC DATE:10/20/18 STATUS: DIS IN [facility] [address] [place] [address] END OF REPORT
--- NOTE | 2018-10-21 11:05 | MORECARE ---
CASE MANAGEMENT DISCHARGE SUMMARY PATIENT: KAREEM KOROMA UNIT: [id number] ADM DATE: 10/13/18 AGE: 77 : 42 SEX: M ROOM/BED: D.8213 AUTHOR: CLEMENTINE,DOC PHYSICIAN: REFERRING PHYSICIAN: NIDA BALLARD MD DATE OF SERVICE: 10/21/18 Discharge Plan Patient Name: KAREEM KOROMA Facility: [facility]:[place] : 1940 Planned Disposition: Half-Way Facility Anticipated Discharge Date: 10/20/18 Discharge Date: 10/20/2018 Expected LOS: 7 Initial Reviewer: [id number] Initial Review Date: 10/14/2018 Generated: 10/21/18 12:04 pm Comments DCP- Discharge Planning Updated by [id number]: Emerson Flores on 10/20/18 3:[address] Patient Name: KAREEM KOROMA Encounter No: [id number] : 1940 Primary Insurance: MEDICARE A & B Anticipated DC Date: 10-20-2018 Planned Disposition: Half-Way Facility External Planned Provider: [facility], MEDICARE REHAB BED DCP follow-up note: [facility] HAS ACCEPTED PT FOR REHAB, [facility] HAS APPROVED PT'S ADMISSION TO INTERMEDIATE FACILITYI FOR REHAB. MICHELLE FAXED UPDATE TO [facility], . FOR DISCHARGE, [facility] AT [phone]; NURSE REPORT TO BE CALLED TO [facility], [facility] EMERSON FLROES CASE MANAGEMENT. Appended by Emerson Flores on 10/20/2018 16:10 CDT: CM RECEIVED DISCHARGE ORDERS, NOTIFIED ABHISHEK AND REQUESTED VAN CHEMISTRY TECHNOLOGIST, FAXED DISCHARGE INFORMATION TO [facility] AT [phone]. NURSE REPORT TO BE CALLED TO [facility], . [facility] TO ARRANGE VAN TRANSPORTATION EMERSON FLORES CASE MANAGEMENT. Appended by Emerson Flores on 10/20/2018 16:12 CDT: CM CALLED LESLEY KOROMA, NOTIFIED OF PT'S DISCHARGE TO REHAB TODAY, SHE IS IN AGREEMENT WITH PLAN AND WILL SEE PT AT [facility]. EMERSON FLORES, CASE MANAGEMENT Appended by Emerson Flores on 10/20/2018 16:43 CDT: CM RECEIVED CALL FROM KATIA OF [facility], SHE HAS NOT RECEIVED DISCHARGE MEDCIATION LIST, REQUESTED FAX TO [facility]. CM FAXED DIRECT TO [facility] AT [phone], NOTIFIED JASWANT, CLINICAL COORDINATOR FOR [facility]. EMERSON FLORES, CASE MANAGEMENT DCP- Discharge Planning Updated by [id number]: Emerson Flores on 10/20/18 1:[address] Patient Name: KAREEM KOROMA Encounter No: [id number] : 1940 Primary Insurance: MEDICARE A & B Anticipated DC Date: 10-21-2018 Planned Disposition: Half-Way Facility External Planned Provider: [facility] MEDIC[facility] REHAB BED DCP follow-up note: CM MET WITH PT IN ROOM TO DISCUSS DISCHARGE NEEDS AND PLANNING. CM DISCUSSED AVAILABILITY OF HOME HEALTH, REHAB SERVICES AND MEDICAL EQUIPMENT. PT REPORTS HE DOES NOT KNOW IF HE CAN GO HOME BUT IF HE DOES, HE WANTS HOME HEALTH. CHOICE SIGNED FOR NO PROVIDER PREFERENCE. IMPORTANT MESSAGE FROM MEDICARE PROVIDED AND EXPLAINED. PT ASKE3D CM TO CALL LESLEY TO DISCUSS DISCHARGE PLANS. CM CALLED LESLEY KOROMA, DISCUSSED DISCHARGE NEEDS, REVIEWED THERAPY NOTES. LESLEY WOULD LIKE PT IN REHAB AT [facility], THEY ARE FAMILIAR WITH PT AND PT IS FAMILIAR WITH FACILITY; CHOICE LETTER COMPLETED. CM NOTIFED JASWANT OF REFERRAL AT [phone]. CM FAXED REFERRAL TO [facility] AT [phone]. CM WAITING ADMISISON DETERMINATION FOR REHAB SERVICES AT [facility]. Emerson Flores, CASE MANAGEMENT Appended by Emerson Flores on 10/20/2018 13:15 CDT: CM RECEIVED CALL FROM JASWANT [facility], THEY WILL ACCEPT PT TODAY IF [facility] CLEARANCE IS RECEIVED. CM COMPLETED [facility] SCREENING FORM, OBTAINED SIGNATURES FROM [facility] PALMER AND PT. CM FAXED TO [facility]. CM WAITING [facility] SCREENING CLEARANCE TO ENTER INTERMEDIATE. [facility] WILL ACCEPT ONCE CLEARED BY [facility]. FOR DISCHARGE, FAX DISCHARGE INFORMATION TO [facility] AT [phone]; NURSE REPORT TO BE CALLED TO [facility], . [facility]SP[facility] EMERSON FLORES, CASE MANAGEMENT. Appended by Emerson Flores on 10/20/2018 14:24 CDT: CM RECEIVED [facility] DETERMINATION OF NON PASSR, PT MAY ENTER INTERMEDIATE FACILITY. CM NOTIFIED JASWANT OF [facility]. FOR DISCHARGE, FAX DISCHARGE INFORMATION TO [facility] AT [phone]; NURSE REPORT TO BE CALLED TO [facility], . [facility] TRANSPORTATION EMERSON FLORES, CASE MANAGEMENT. DCP- Discharge Planning Updated by [id number]: Abi Randolph on 10/14/18 2:[address] Patient Name: KAREEM KOROMA Admission Status: ER Accout number: [id number] Admission Date: 10-13-2018 : 1940 Admission Diagnosis:HYPERTENSIVE URGENCY Attending: NIDA BALLARD Current LOS: 1 Anticipated DC Date: Planned Disposition: Primary Insurance: MEDICARE A & B Discharge Planning Comments: PATIENT WAS SLEEPING AND NO FAMILY HERE AT PRESENT. CM REVIEWED THE CHART AND IT APPEARS HE HAS BEEN CONFUSED. HE LIVES WITH HIS SPOUSE IN [place]. HE HAS HEMODYALISIS 3 TIMES PER WEEK BUT DIDN'T GO LAST TIME FOR UNKNOWN REASON. CM WILL ATTEMPT TO CONTACT PATIENT'S CONCERNING DC NEEDS. Grave Digger: Abi Randolph DCPIA - Discharge Planning Initial Assessment Updated by [email or web address]: Emerson Flores on 10/20/18 12:32 pm * Is the patient Alert and Oriented? No * PCP VICKI * Pharmacy [facility] * Preadmission Environment Home with Family * List name and contact numbers for known caregivers / representatives who currently or will assist patient after discharge: LESLEY, SPOUSE, Coverage Notice Reviewer: [id number] Flores Notice Issued Date-Time: 10/19/2018 9:30 Notice Type: IM Discharge Notice Notice Delivered To: Patient Relationship to Patient: Holistic Specialist Name: Delivery Method: HAND - Hand Delivered Aleida Days: Prior Verbal Notification: Recipient Understood Notice: Yes Recipient Signature: Yes Med Rec Note Co-signed by Attending: Coverage Notice Comment: Reviewer: SHALONDA Flores Notice Issued Date-Time: 10/19/2018 9:30 Notice Type: Patient Choice Letter Notice Delivered To: Patient Relationship to Patient: Holistic Specialist Name: Delivery Method: HAND - Hand Delivered Aleida Days: Prior Verbal Notification: Recipient Understood Notice: Yes Recipient Signature: Yes Med Rec Note Co-signed by Attending: Coverage Notice Comment: NO HOME HEALTH PROVIDER PREFERENCE Reviewer: [id number] Andrey Flores Notice Issued Date-Time: 10/19/2018 14:45 Notice Type: Patient Choice Letter Notice Delivered To: Family Member Relationship to Patient: Spouse Holistic Specialist Name: LESLEY KOROMA Delivery Method: HAND - Hand Delivered Aleida Days: Prior Verbal Notification: Recipient Understood Notice: Yes Recipient Signature: Med Rec Note Co-signed by Attending: Coverage Notice Comment: LUANNE RECIO Last DP export: 10/20/18 3:48 p Patient Name: KAREEM KOROMA Page 25093 at 1105 All edits/amendments must be made on the electronic document DICTATION DATE: 10/21/18 1104 SUPERVISOR COSTUMING: ANGELITO 10/21/18 1104 RPT#: [id number] DC DATE:10/20/18 STATUS: DIS IN [facility] [address] [place] [address] END OF REPORT
== END 2018-10-20 16:40 | DRG 682 ==
LOC: D.ER 23:10 → D.ICU 10-13 00:24 → D.M2 10-15 13:43 → D.SDCHOLD 10-19 16:42 → D.M2 10-19 16:47
PROVIDERS: Family Medicine; ADMIT Internal Medicine Nephrology; ATTEND Internal Medicine Nephrology
DX: I12.0 Hypertensive chronic kidney disease with stage 5 chronic kidney disease or end stage renal disease (principal); N18.6 End stage renal disease; F03.91 Unspecified dementia, unspecified severity, with behavioral disturbance; I16.0 Hypertensive urgency; E11.22 Type 2 diabetes mellitus with diabetic chronic kidney disease; Z99.2 Dependence on renal dialysis; E87.5 Hyperkalemia; Z79.4 Long term (current) use of insulin

== ENCOUNTER 2019-01-09 17:23 | Inpatient (IN) | payer MEDICARE, BC ==
[2019-01-09] VITALS: BP 172/66
[~2019-01-09] VITALS: Ht 172.7 cm; Wt 95.3 kg
--- NOTE | ~2019-01-09 | HEMODYNAMI ---
PATIENT:KAREEM KOROMA MEDICAL RECORD: [id number] : 44 [id number] ADMISSION DATE: 01/09/19 Generatedon:01/11/201914:54 Patient name: KAREEM KOROMA Patient #: [id number] SSN: [id number] : 1940 Date of study: 01/11/2019 Page: Of Hemodynamic Procedure Report Patient Data Patient Demographics Procedure consent was obtained First Name: KAREEM Gender: Male Last Name: FRANCI : 1940 Patient #: [id number] Age: 78 year(s) Race: Black SSN: [id number] Additional ID: [id number] Contact details [address]: [address] [place] [address] State: [place] City: [place] Zip code: [address] Admission Admission Data Admission Date: 01/09/2019 Admission Time: 19:30 Arrival Date: 01/11/2019 Arrival Time: 0:00 Admit Source: Emergency Insurance Payor: Medicare department Room #: D.2130 Height (in.): 68.11 BSA: 2.09 (m2) Height (cm.): 173 BMI: 31.74 (kg/m2) Weight (lbs.): 209.44 Weight (kg.): 95 Lab Results Lab Result Date: 01/11/2019 Lab Result Time: 0:00 Biochemistry Name Units Result Min Max BUN mg/dl 65 --(----)-* 7 18 Creatinine mg/dl 12 --(----)-* 0.6 1.3 CBC Name Units Result Min Max Hemoglobin g/dl 12.5 *-(----)-- 13.5 17.5 Procedure Procedure Types Cath Procedure Diagnostic Procedure LHC LHC w/Coronaries PCI Procedure Coronary Stent Coronary Stent Initial Procedure Description Procedure Date Procedure Date: 01/11/2019 Procedure Start Time: 14:12 Procedure End Time: 14:53 Procedure Staff Name Function Topher Ron MD Performing Physician Darron Love RT Monitor Salena Gu RT Scrub Madeleine Pereyra RN Nurse Indication Elevated troponin Procedure Data Cath Procedure Fluoroscopy Diagnostic fluoroscopy Total fluoroscopy Time: 6 time: 6 min min Diagnostic fluoroscopy Total fluoroscopy dose: dose: 1115 mGy 1115 mGy Contrast Material Contrast Material Type Amount (ml) Isovue 300 157 Entry Location Entry Primary Successful Side Size Upsize Upsize Entry Closure Succes sful Closure Location (Fr) 1 (Fr) 2 (Fr) Remarks Device Remarks Femoral Right 5 Fr 6 Fr Exoseal artery Short Estimated blood loss: 20 ml Diagnostic catheters Device Type Used For End Catheter Placement MULTIPACK JL 4.0 5Fr Procedure catheter MULTIPACK 3DRC 5Fr Procedure catheter DIAGNOSTIC AL1 5Fr Procedure catheter ([id number]) MULTIPACK Pigtail 5 Fr Procedure catheter Procedure Medications Medication Administration Route Dosage Oxygen etCO2 Nasal cannula 2 l/min Lidocaine 2% added to field 20 Heparin Flush Bag added to field 2 bags (1000units/500ml NS) 0.9% NaCl I.V. Versed I.V. 1 mg Fentanyl I.V. 50 mcg Versed I.V. 1 mg Fentanyl I.V. 50 mcg Versed I.V. 1 mg Heparin Bolus I.V. 9500 units Versed I.V. 1 mg Plavix P.O. 600 mg Hemodynamics Rest BSA: 2.09 (m2) HGB: 12.5 (g/dl) O2 Consumption: Estimated: 240.15 (ml/min) O2 Co nsumption indexed: Estimated:114.9 (ml/min/m) Heart Rate: 70 (bpm) Pressure Samples Time Site Value (mmHg) Purpose Heart Use Rate(bpm) 14:16 AO 179/74(114) Snapshot 60 14:25 LV 176/13,29 Snapshot 63 14:25 LV 175/12,28 EDP 63 Gradients Valve Time Site Site Mean SEP/DFP Peak To Heart Use 1 2 (mmHg) (sec/min) Peak Rate (mmHg) (bpm) Aortic 14:25 LV AO 62 Snapshots Pre Cath Intra NCS Post Cath Vital Signs Time Heart Resp SPO2 etCO2 NIBP (mmHg) Rhythm Pain Sedation Rate (ipm) (%) (mmHg) Status Level (bpm) 14:00:25 69 10 100 41.9 Measuring NSR 0 (11) 10(A) , No pain 14:01:00 70 12 100 41.1 194/86(148) NSR 0 (11) 10(A) , No pain 14:05:32 66 12 100 44.2 189/82(149) NSR 0 (11) 10(A) , No pain 14:10:00 61 13 100 44.2 176/80(148) NSR 0 (11) 10(A) , No pain 14:14:31 60 16 100 40.4 169/81(141) NSR 0 (11) 10(A) , No pain 14:18:59 62 18 100 46.4 168/75(137) NSR 0 (11) 10(A) , No pain 14:23:23 62 12 100 41.1 164/75(130) NSR 0 (11) 10(A) , No pain 14:27:52 62 15 100 44.1 158/73(135) NSR 0 (11) 10(A) , No pain 14:32:16 67 15 100 44.9 153/72(134) NSR 0 (11) 10(A) , No pain 14:36:38 66 13 100 0 151/72(123) NSR 0 (11) 10(A) , No pain 14:41:02 62 13 100 43.4 154/73(128) NSR 0 (11) 10(A) , No pain 14:45:31 62 10 100 44.1 160/71(130) NSR 0 (11) 10(A) , No pain Medications Time Medication Route Dose Verified Delivered Reason Notes Effectiveness by by 13:58:47 Oxygen etCO2 2 Topher Buffie used for Nasal l/min Juanito Pereyra RN procedure cannula 13:58:56 Lidocaine 2% added 20ml Topher Topher for local to vial Juanito Ron MD anesthetic field 13:59:01 0.9% NaCl I.V. kvo Topher Buffie Per physician Pt is on ml/hr Juanito Pereyra RN dialysis, Dusty Sheehan, Sat. [place] left arm. 13:59:02 Heparin Flush added 2 Topher Topher used for Bag to bags Juanito Ron MD procedure (1000units/500ml field NS) 14:10:06 Versed I.V. 1 mg Topher Buffie for sedation Juanito Pereyra RN 14:10:11 Fentanyl I.V. 50 Topher Buffie for sedation mcg Juanito Pereyra RN 14:16:40 Versed I.V. 1 mg Topher Buffie for sedation Juanito Pereyra RN 14:16:44 Fentanyl I.V. 50 Topher Buffie for sedation mcg Juanito Pereyra RN 14:24:19 Versed I.V. 1 mg Topher Buffie for sedation Juanito Pereyra RN 14:29:09 Heparin Bolus I.V. 9500 Topher Buffie for verif ied units Juanito Pereyra RN anticoagulation with dr ron 14:37:30 Versed I.V. 1 mg Topher Buffie for sedation Juanito Pereyra RN 14:42:32 Plavix P.O. 600 Topher Buffie for mg Juanito Pereyra RN antiplatelet therapy Procedure Log Time Note 13:30:25 Informed consent obtained and on chart 13:30:30 Diagnostic Cath Status : Elective 13:30:52 Indication : Elevated troponin 13:32:39 Admit Source: Emergency department 13:32:43 Patient Height : 68.11 inches 13:32:54 Patient Weight : 209.44 lbs 13:33:05 Arrival Date: 01/11/2019 12:00:00 AM 13:33:35 Insurance Payor : Medicare 13:34:05 Lab Result : BUN 65 mg/dl 13:34:05 Lab Result : Hemoglobin 12.5 g/dl 13:34:05 Lab Result : Creatinine 12 mg/dl 13:34:24 5) <15 or on dialysis Very severe, or end stage kidney failure. 13:34:45 Maximum allowable contrast dose (3.7 X eGFR X 0.75)13 ml. 13:35:46 ACC Patient presents with Stable Angina CCS Anginal Class 2--Slight limitation of ordinary activity. 13:35:53 Procedure Status Urgent Heart Cath (IP). 13:35:57 Darron TALLEY(R) (CV) sent for patient. Start room use. 13:35:58 Time tracking: Regular hours (M-F 7:00 - 5:00) 13:36:03 Plan of Care:Hemodynamics will remain stable., Cardiac rhythm will remain stable., Comfort level will be maintained., Respiratory function will remain adequate., Patient/ family verbilizes understanding of procedure., Procedure tolerated without complication., Recovers from procedure without complications.. 13:55:15 Patient received from Med II to CCL 1 Alert and oriented. Tansferred to table in Supine position. 13:55:16 Warm blankets applied, and alfonso hugger turned on for patient comfort. 13:55:17 Correct patient and procedure confirmed by team. 13:55:17 ECG and BP/O2 sat monitors applied to patient. 13:58:36 Vital chart was started 13:58:47 Oxygen 2 l/min etCO2 Nasal cannula was administered by Madeleine Pereyra RN; used for procedure; 13:58:56 Lidocaine 2% 20ml vial added to field was administered by Topher Ron MD; for local anesthetic; 13:59:01 0.9% NaCl kvo ml/hr I.V. was administered by Madeleine Pereyra RN; Per physician; Pt is on dialysis, Tue, Thur, Sat. [place] left arm. 13:59:02 Heparin Flush Bag (1000units/500ml NS) 2 bags added to field was administered by Topher Ron MD; used for procedure; 13:59:33 Baseline sample Acquired. 13:59:40 Rhythm: sinus rhythm 13:59:41 Full Disclosure recording started 13:59:58 H&P Date Dictated: 01/09/2019 Within 30 days and on chart.. 14:00:51 Pre-procedure instructions explained to patient. 14:01:09 Pre-op teaching completed and patient verbalized understanding. 14:01:11 Patient NPO since Breakfast. 14:01:16 Is the patient allergic to Iodine/contrast media? No. 14:01:48 Is patient on blood thinner?No 14:01:52 Patient diabetic? Yes. 14:01:56 ----Pre-sedation anethsthesia assessment.---- 14:01:58 Previous problem with sedation/anesthesia? No ? 14:02:00 Snore? Yes 14:02:02 Sleep apnea? No 14:02:04 Deviated septum? No 14:02:06 Opens mouth fully? Yes 14:02:08 Sticks out tongue? Yes 14:02:12 Airway obstruction? No ? 14:02:18 Dentures? No ? 14:02:22 Pre procedure: right dorsailis pedis pulse 1+ Palpable, but thready & weak; easily obliterated 14:02:26 Patient pain scale 0/10 ?. 14:02:36 IV patent on arrival in right hand with 0.9% NaCl at [facility]. 14:02:41 Right groin area was prepped with chlora-prep and draped in sterile fashion 14:02:55 RESERVE LEFT ARM 14:04:15 Alarms reviewed by R. N. 14:04:16 Sharps counted by scrub and verified by R.N. 14:04:55 Use device set Femoral Dx 14:04:57 ACIST Syringe (08752) opened to sterile field. 14:04:58 Bag Decanter (2002S) opened to sterile field. 14:04:59 Medline Cath Pack ([id number]) opened to sterile field. 14:05:01 ACIST Hand Control (57914) opened to sterile field. 14:05:02 ACIST Manifold (92888) opened to sterile field. 14:05:04 DIAGNOSTIC Multipack 5Fr catheter set (FO3837) opened to sterile field. 14:05:05 Tegaderm 4 x 4 (1626W) opened to sterile field. 14:05:07 SHEATH 5FR [place] (KHN691) opened to sterile field. 14:05:08 EMERALD Guide Wire (718-241) opened to sterile field. 14:08:43 Physician arrived 14:08:43 --------ALL STOP TIME OUT------ 14:08:44 Final Timeout: patient, procedure, and site verified with staff and physician. All members of the team are in agreement. 14:08:46 Right groin site verified by team. 14:08:59 Fire Safety Assessment: A--An alcohol-based skin anteseptic being used preoperatively., C--Open oxygen or nitrous oxide is being used., D--An ESU, laser, or fiber-optic light is being used. 14:09:05 Sedation plan: IV Moderate Sedation Medication:Versed, Fentanyl 14:09:36 Physical assessment completed. ASA score P 2 - A patient with mild systemic disease as per Topher Ron MD. 14:09:56 Zero performed for pressure channel P1 14:10:06 Versed 1 mg I.V. was administered by Madeleine Pereyra RN; for sedation; 14:10:11 Fentanyl 50 mcg I.V. was administered by Buffie Pereyra RN; for sedation; 14:11:32 Zero performed for pressure channel P1 14:11:35 Zero performed for pressure channel P1 14:11:39 Zero performed for pressure channel P1 14:11:42 Zero performed for pressure channel P1 14:11:46 Zero performed for pressure channel P1 14:11:58 Zero performed for pressure channel P1 14:12:01 Zero performed for pressure channel P1 14:12:04 Zero performed for pressure channel P1 14:12:12 Zero performed for pressure channel P1 14:12:17 Zero performed for pressure channel P1 14:12:20 Zero performed for pressure channel P1 14:12:32 Procedure started. 14:12:37 Local anesthetic to right femoral artery with Lidocaine 2% by Topher Ron MD.INITIAL ACCESS ONLY 14:12:52 Zero performed for pressure channel P1 14:14:41 Zero performed for pressure channel P1 14:14:43 Zero performed for pressure channel P1 14:15:33 Zero performed for pressure channel P1 14:15:36 Zero performed for pressure channel P1 14:15:39 Zero performed for pressure channel P1 14:15:58 A 5 Fr sheath was inserted into the Right Femoral artery 14:16:09 A MULTIPACK JL 4.0 5Fr catheter was advanced over the wire and used for Procedure. 14:16:40 Versed 1 mg I.V. was administered by Madeleine Pereyra RN; for sedation; 14:16:44 Fentanyl 50 mcg I.V. was administered by Madeleine Pereyra RN; for sedation; 14:17:01 LCA angiography performed. 14:18:34 Catheter removed. 14:19:19 A MULTIPACK 3DRC 5Fr catheter was advanced over the wire and used for Procedure. 14:22:03 Catheter removed. 14:22:59 A DIAGNOSTIC AL1 5Fr catheter ([id number]) was advanced over the wire and used for Procedure. 14:23:16 RCA angiography performed. 14:23:55 Catheter removed. 14:24:06 A MULTIPACK Pigtail 5 Fr catheter was advanced over the wire and used for Procedure. 14:24:19 Versed 1 mg I.V. was administered by Madeleine Pereyra RN; for sedation; 14:25:35 LV hemodynamics recorded. 14:25:38 LV gram done using ALEMAN 14:25:44 EF : 45 % 14:26:15 Catheter removed. 14:26:26 SHEATH 6FR [place] (LLL893) opened to sterile field. 14:26:26 TUBING High Pressure Extension Tubing (Juanito) (WD8794E) opened to sterile field. 14:26:27 BMW 300cm Good Thunder 2 J wire ([id number]) opened to sterile field. 14:26:28 GUIDE 6FR XBLAD 3.5 catheter ([id number]) opened to sterile field. 14:26:29 INFLATOR Merit BasixCompak (HY7946) opened to sterile field. 14:26:38 EXOSEAL 6Fr (EX600) opened to sterile field. 14:26:44 Proceeding to intervention. 14:26:56 Sheath upsized to a 6 Fr Short. 14:27:37 6 Fr XBLAD 3.5 guide catheter was inserted over the wire 14:29:09 Heparin Bolus 9500 units I.V. was administered by Madeleine Pereyra RN; for anticoagulation; verified with dr ron 14:29:54 Pre PCI Site: [place] mLAD has 90% stenosis. 14:30:50 BMW wire advanced. 14:31:45 Wire advanced across lesion. 14:36:44 Place stent Inflation Number: 1 A COBRA RX 3.0 X 30 Stent was prepped and advanced across the Mid LAD 90. The stent was deployed at 12 ALESSANDRA for 0:10 (min:sec) 0. 14:37:21 Stent catheter was removed intact over wire. 14:37:30 Versed 1 mg I.V. was administered by Madeleine Pereyra RN; for sedation; 14:38:04 Wire removed. 14:38:05 Guide catheter removed. 14:38:35 Sheath removed intact; hemostasis achieved with Exoseal to the Right Femoral artery. 14:38:45 Procedure type changed to Cath procedure, Diagnostic procedure, LHC, LHC w/Coronaries, PCI procedure, Coronary Stent, Coronary Stent Initial 14:38:49 Procedure ended.(Physican Out) 14:39:00 ACT drawn and resulted at >240 seconds. (normal therapeutic range 180-240 seconds). 14:39:02 Fluoroscopy time 06.00 minutes. 14:39:09 Flurop Dose total: 1115 14:39:09 Fluoroscopy dose: 1115 mGy 14:39:15 Dose Area Product 47038 mGy/cm. 14:39:21 Contrast amount:Isovue 300 157ml. 14:39:28 Maximum allowable dose exceeded? Yes. 14:40:10 PHYSICIAN NOTIFIED, PATIENT TO DIALYSIS TOMORROW 14:42:32 Plavix 600 mg P.O. was administered by Madeleine Pereyra RN; for antiplatelet therapy; 14:44:53 Insertion/operative site no bleeding no hematoma. 14:44:57 Post-op/insertion site Right Femoral artery dressed using a 4 x 4 and Tegaderm. 14:45:01 Post right femoral artery:stable 14:45:04 Post Procedure Pulses reassessed and unchanged 14:45:07 Post-procedure physical assessment completed. ASA score P 2 - A patient with mild systemic disease as per Topher Ron MD. 14:45:28 Post procedure rhythm: sinus rhythm 14:45:36 Estimated blood loss: 20 ml 14:45:39 Patient needs reinforcement of post procedure teaching. 14:45:40 Procedure and supply charges have been captured, reviewed, submitted and are correct. 14:48:19 Vital chart was stopped 14:48:20 See physician's report for complete and final results. 14:48:27 Report given to [facility] II. 14:50:07 FEMSTOP Gold ([id number]) opened to sterile field. 14:50:39 Post right femoral artery:oozing 14:51:12 Femstop placed over the right femoral artery at 130 mmHg. Hemostasis achieved. 14:53:37 Patient transfered to [facility] with Bed. 14:53:42 Procedure ended. 14:53:42 Full Disclosure recording stopped 14:53:47 End room use (Document Last) Intervention Summary Intervention Notes Time ActionType Lesion and Equipment Action# Pressure Duration Attributes Used 14:36:44 Place stent Mid LAD COBRA RX 1 12 00:10 3.0 X 30 Stent Device Usage Item Name Manufacture Quantity Catalog Hospital Part Current Minimal Lot# / Number Charge Number Stock Stock Serial# Code ACIST Syringe Acist 1 56674 198553 846234 813636 20 (18023) Medical Systems Inc Bag Decanter Microtek 1 498864 59101 196189 5 () Medical Inc. Medline Cath Medline 1 [id number] 299445 50733 074032 5 Pack ([id number]) ACIST Hand Acist 1 06060 368694 085358 171038 5 Control Medical (27852) Systems Inc ACIST Manifold Acist 1 42944 525470 150361 699170 5 (54546) Medical Systems Inc DIAGNOSTIC Cardinal 1 EF1607 580076 06269 145188 30 Multipack 5Fr Health catheter set (BA5660) Tegaderm 4 x 4 3M 1 1626W 088175 921544 663487 5 (1626W) SHEATH 5FR Terumo 1 TDM193 661587 023828 212063 5 [place] (PET361) EMERALD Guide Cardinal 1 502-455 393963 775227 991134 5 Wire (502-455) Health MULTIPACK JL Cardinal 1 987371 5 4.0 5Fr Health catheter MULTIPACK 3DRC Cardinal 1 764842 5 5Fr catheter [employer] DIAGNOSTIC AL1 Cardinal 1 [id number] 256730 697726 275140 15 5Fr catheter Health (212558A) MULTIPACK Cardinal 1 864982 5 Pigtail 5 Fr Health catheter SHEATH 6FR Terumo 1 SXJ943 295749 638254 399818 40 [place] (IIV522) TUBING High Merit 1 [id number] 488149 13926 896686 10 Pressure Medical Extension Tubing (Ron) (VV3787V) BMW 300cm Mendoza 1 [id number] 821329 601535 107168 5 Good Thunder 2 J Vascular wire (4224643K) GUIDE 6FR Cardinal 1 41958321 337347 482296 109175 10 XBLAD 3.5 Health catheter (94823863) INFLATOR Merit Merit 1 NI2469 152705 176406 268726 15 [facility] Medical (WA9329) EXOSEAL 6Fr Cardinal 1 EX600 851218 882384 157630 10 (EX600) Health COBRA RX 3.0 X Celonova 1 682-15-00998 153180 [id number] 12207696 6 [id number] 30 stent Biosciences (288-61-69055) FEMSTOP Gold St Andrei 1 R68487 398123 823568 504084 5 (R51551) Signature Audit [place] Stage Time Signature Unsigned Intra-Procedure 01/11/2019 Darron Love 2:54:04 PM RT(R) (CV) Signatures Performing Physician : Signature : Topher Ron MD Date : Time : Monitor : Darron Love RT Signature : Date : Time : Nurse : Buffie Pereyra RN Signature : Date : Time : [address] [place] [address]
--- NOTE | 2019-01-09 17:39 | NUR ---
1622 RECEIVED PATIENT VIA EMS TO [facility] WITH C/O TRANSFER FROM [facility] IN [place] FOR HIGHER LEVEL OF CARE, ELEVATED ENZYMES. NO DISTRESS. PATIENT DENIES PAIN OR ISSUES.
[2019-01-09 18:52] VITALS: BP 166/121
--- NOTE | 2019-01-09 19:01 | NUR ---
BS REPORT TO NKECHI EMERSON BY SBAR FORMAT
[2019-01-09 20:00] VITALS: BP 175/71
[2019-01-09 23:31] VITALS: BP 175/71; BMI 32.0
--- NOTE | 2019-01-10 03:07 | NUR ---
PATIENT COMING OF ABDOMINAL PAIN. ARA MONSIVAIS. ORDERS GIVEN FOR BUPRENEX AND ZOFRAN.
[2019-01-10 05:16] LABS: EOSINOPHILS 4.8 % (0-7); HEMATOCRIT 37.8 % (42.0-54.0); HEMOGLOBIN 12.5 g/dL (13.5-17.5); IMMATURE GRANULOCYTES 0.3 % (0-5); LYMPHOCYTES 30.3 % (15-50); MCH 29.6 pg (26.0-34.0); MCHC 33.1 g/dL (31.0-37.0); MCV 89.4 fL (80.0-100.0); MEAN PLATELET VOLUME 9.7 fL (7.4-10.4); MONOCYTES 8.3 % (2-11); NEUTROPHILS 55.3 % (40-80); RBC 4.23 10x6/uL (4.20-6.10); RDW 15.7 % (11.5-14.5); WBC 6.2 10x3/uL (4.8-10.8)
[2019-01-10 05:27] LABS: APTT 36.2 SECONDS (22.8-39.4); INR 1.33 (0.85-1.17); PLATELET COUNT 193 10x3/uL (130-400); PROTIME 15.9 SECONDS (11.6-15.0)
[2019-01-10 05:59] LABS: ALBUMIN 3.3 g/dL (3.4-5.0); BILIRUBIN - TOTAL 0.58 mg/dL (0.2-1.3); CALCIUM 8.7 mg/dL (8.5-10.1); CREATININE - SERUM 12.1 mg/dL (0.6-1.3); MAGNESIUM - SERUM 2.3 mg/dL (1.8-2.4); PHOSPHOROUS 2.9 mg/dL (2.5-4.9); PROTEIN - SERUM 6.7 g/dL (6.4-8.2)
[2019-01-10 06:04] LABS: TROPONIN-I 0.104 ng/mL (0.000-0.060)
--- NOTE | 2019-01-10 07:20 | NUR ---
PT SITTING ON EDGE OF BED HOLDING ABD, SHIFT ASSESSMENT PERFORMED. PT PIV TO RIGHT HAND HANGING OUT OF SKIN WITH CATHETER TIP INTACT. 22G PIV INSERTED TO PT RIGHT HAND X2 ATTEMPTS. PT TOLERATED WELL. WILL CONT TO FOLLOW POC
[2019-01-10 09:20] VITALS: BP 200/88
--- NOTE | 2019-01-10 11:18 | NUR ---
PT LEFT FLOOR FOR DIALYSIS
[2019-01-10 12:15] LABS: CKMB 3.4 U/L (0.0-3.6); CREATINE KINASE 443 UL (21-232); TROPONIN-I 0.158 ng/mL (0.000-0.060)
[2019-01-10 12:54] LABS: AMYLASE - SERUM 79 U/L (25-115); LIPASE 96 U/L (73-393)
[2019-01-10 14:17] VITALS: BMI 31.9
--- NOTE | 2019-01-10 15:31 | NUR ---
PT RETURNED TO FLOOR FROM DIALYSIS, BP ELEVATED, WILL GIVE PO BP MEDS THAT PT MISSED WHILE IN DIALYSIS
[2019-01-10 17:34] VITALS: Ht 172.7 cm; Wt 95.3 kg
[2019-01-10 17:42] VITALS: BP 198/86
[2019-01-10 19:57] LABS: CKMB 3.8 U/L (0.0-3.6); CREATINE KINASE 390 UL (21-232)
[2019-01-10 20:00] VITALS: BP 217/88
[2019-01-10 20:03] LABS: TROPONIN-I 0.282 ng/mL (0.000-0.060)
--- NOTE | 2019-01-10 20:15 | NUR ---
PT IN BED WITH EYES CLOSED WITH CHEST RISING. NO S/S OF DISTRESS. EASILY AWOKEN TO VERBAL STIMULI. NO NEEDS OR CONCERNS. WILL CONTINUE TO OBSERVE.
--- NOTE | 2019-01-10 22:04 | NUR ---
DIALYSIS COORDINATOR: [facility] @ 6:15AM. SANJANA RIOS.
[2019-01-11] VITALS: BP 136/58
--- NOTE | 2019-01-11 00:16 | NUR ---
PT WATCHING TV. NO S/S OF DISTRESS. WILL CONTINUE TO OBSERVE.
[2019-01-11 00:22] LABS: CREATINE KINASE 280 UL (21-232); TROPONIN-I 0.399 ng/mL (0.000-0.060)
--- NOTE | 2019-01-11 01:53 | NUR ---
PT RESTING WITH EYES CLOSED AND CHEST RISING. EASILY AWOKEN FOR FSBS, 85. NOT TREATED PER SLIDING SCALE. NO NEEDS OR CONCERNS NOTED. CALL LIGHT IN REACH. WILL CONINUE TO OBSERVE.
[2019-01-11 04:00] VITALS: BP 122/51
[2019-01-11 04:50] LABS: ANION GAP 13.9 mmol/L (8-16); CALCIUM 8.6 mg/dL (8.5-10.1); CARBON DIOXIDE 29.4 mmol/L (21.0-32.0); CREATININE - SERUM 9.8 mg/dL (0.6-1.3); POTASSIUM - SERUM 4.3 mmol/L (3.5-5.1)
[2019-01-11 04:53] LABS: BASOPHILS 0.9 % (0-2); EOSINOPHILS 7.5 % (0-7); HEMATOCRIT 36.8 % (42.0-54.0); HEMOGLOBIN 11.7 g/dL (13.5-17.5); LYMPHOCYTES 29.7 % (15-50); MCH 28.8 pg (26.0-34.0); MCHC 31.8 g/dL (31.0-37.0); MCV 90.6 fL (80.0-100.0); MEAN PLATELET VOLUME 10.6 fL (7.4-10.4); MONOCYTES 10.5 % (2-11); NEUTROPHILS 51.4 % (40-80); PLATELET COUNT 190 10x3/uL (130-400); RBC 4.06 10x6/uL (4.20-6.10); RDW 15.6 % (11.5-14.5); WBC 5.6 10x3/uL (4.8-10.8)
--- NOTE | 2019-01-11 06:50 | NUR ---
PT RESTING WITH EYES CLOSED, CHEST RISING. EASILY AWOKEN. NO COMPLAINTS OR CONCERNS NOTED. CALL LIGHT IN REACH.
--- NOTE | 2019-01-11 07:10 | NUR ---
PT RESTING IN BED, SHIFT ASSESSMENT PERFORMED. DENIES ANY NEEDS AT THIS TIME. WILL CONT TO FOLLOW POC
[2019-01-11 09:31] VITALS: BP 147/62
[2019-01-11 11:24] VITALS: BP 145/57
--- NOTE | 2019-01-11 14:04 | NUR ---
CALLED PHARMACY ABOUT FORTAZ. STATED THEY WERE MIXING IT AT THIS TIME.
--- NOTE | 2019-01-11 15:17 | NUR ---
PT BACK FROM [employer]. HAD 9500 HEPARIN, 600 PLAVIX. PT HAS XO SEAL TO RIGHT GROIN. PT LAYING FLAT. PULSE FELT IN RIGHT FOOT. PT RESTING QUIETLY. VITAL SIGNS STABLE.
[2019-01-11 16:14] VITALS: BP 178/73
[2019-01-11 20:00] VITALS: BP 126/69
--- NOTE | 2019-01-11 20:00 | NUR ---
PATIENT RESTING WITH EYES CLOSED AND IN SUPINE POSITION WHEN ENTERING ROOM. AROUSES TO NAME CALLED. FEM STOP IN PLACE AT RIGHT GROIN. NO BLEEDING OR SWELLING NOTED. SOFT TO TOUCH. PERIPHERAL PULSES PALPABLE. LEFT FORE ARM FISUTALA. 2 PIV IN RIGHT HAND BOTH SALINE LOCKED AT THIS TIME. DENIES PAIN OR DISCOMFORT AT THIS TIME. DEFLATED FEM STOP BALOON PER CHARGE NURSE ORDER. REMAINS UNCHANGED AT THIS TIME. CALL LIGHT IN REACH OF PATIENT. CPOC.
[2019-01-12] VITALS: BP 110/57
[2019-01-12 04:00] VITALS: BP 108/58
--- NOTE | 2019-01-12 06:11 | NUR ---
I have reviewed this patient and I concur with the Shift Assessment completed by the Licensed Practical Nurse today this shift.
[2019-01-12 07:28] LABS: BASOPHILS 0.8 % (0-2); EOSINOPHILS 13.2 % (0-7); HEMATOCRIT 34.3 % (42.0-54.0); HEMOGLOBIN 11.4 g/dL (13.5-17.5); MCH 29.6 pg (26.0-34.0); MCHC 33.2 g/dL (31.0-37.0); MCV 89.1 fL (80.0-100.0); MEAN PLATELET VOLUME 9.9 fL (7.4-10.4); MONOCYTES 10.6 % (2-11); NEUTROPHILS 44.4 % (40-80); PLATELET COUNT 160 10x3/uL (130-400); RBC 3.85 10x6/uL (4.20-6.10); RDW 15.3 % (11.5-14.5); WBC 4.9 10x3/uL (4.8-10.8)
--- NOTE | 2019-01-12 07:30 | NUR ---
ASSESSMENT DONE. DENIES NEEDS
[2019-01-12 08:25] VITALS: BP 144/70
[2019-01-12] MEDS ORDERED: PLAVIX75 MG PO (09:32)
[2019-01-12 09:36] LABS: ANION GAP 15.1 mmol/L (8-16); CALCIUM 7.7 mg/dL (8.5-10.1); CARBON DIOXIDE 26.4 mmol/L (21.0-32.0); CREATININE - SERUM 11.9 mg/dL (0.6-1.3); POTASSIUM - SERUM 4.5 mmol/L (3.5-5.1)
[2019-01-12] MEDS ORDERED: CARAFATE1 G PO (09:43)
--- NOTE | 2019-01-12 14:23 | NUR ---
I have reviewed this patient and I concur with the Shift Assessment completed by the Licensed Practical Nurse today this shift.
[2019-01-12 14:51] VITALS: BP 136/73
--- NOTE | 2019-01-12 17:25 | MORECARE ---
CASE MANAGEMENT DISCHARGE SUMMARY PATIENT: KAREEM KOROMA UNIT: [id number] ADM DATE: 01/09/19 AGE: 78 : 42 SEX: M ROOM/BED: D.2130 AUTHOR: [place] PHYSICIAN: REFERRING PHYSICIAN: FREDY FARR MD DATE OF SERVICE: 01/12/19 Discharge Plan Patient Name: KAREEM KOROMA [facility] [facility] 1940 Planned Disposition: Home Anticipated Discharge Date: 01/12/19 Discharge Date: Expected LOS: 3 Initial Reviewer: [email or web address] Initial Review Date: 01/12/2019 Generated: 01/12/19 6:25 pm Comments DCP- Discharge Planning Updated by [email or web address]: Tone Terry on 01/12/19 4:[address] Patient Name: KAREEM KOROMA Admission Status: ER Accout number: [id number] Admission Date: 01-09-2019 : 1940 Admission Diagnosis:HYPOTENSION, UNSPECIFIED Attending: Fredy Farr Current LOS: 3 Anticipated DC Date: 01-12-2019 Planned Disposition: Home Primary Insurance: MEDICARE A & B Discharge Planning Comments: CM ATTEMPTED TO MEET WITH PT FOR INITIAL ASSESSMENT OF DISCHARGE NEEDS. PT WAS NOT IN ROOM AT APPROXIMATELY 0915 HOURS. CM TO ATTEMPT ASSESSMENT OF PT AT A LATER TIME. CM ATTEMPTED TO MEET WITH PT FOR INITIAL ASSESSMENT OF DISCHARGE NEEDS. PT WAS NOT IN ROOM AT [id number] HOURS, PT HAD DISCHARGED HOME. Economic Research Analyst: Tone Terry Patient Name: KAREEM KOROMA Page 51116 at 1725 All edits/amendments must be made on the electronic document DICTATION DATE: 01/12/191723 ECONOMIC ANALYSIS DIRECTOR: ANGELITO 01/12/191723 RPT#: [id number] DC DATE: STATUS: ADM IN [facility] [address] [place] [address] END OF REPORT
--- NOTE | 2019-01-12 17:52 | NUR ---
DC GIVEN TO PT
--- NOTE | 2019-01-12 18:12 | NUR ---
DC HOME PER PERSONAL CAR
== END 2019-01-12 18:13 | disposition home or self-care (01) | DRG 248 ==
LOC: D.ER 17:23 → D.M2 19:30
PROVIDERS: Family Medicine; Internal Medicine Cardiovascular Disease; ADMIT Internal Medicine Nephrology; ATTEND Internal Medicine Nephrology
PROC: 5A1D70Z Performance of Urinary Filtration, Intermittent, Less than 6 Hours Per Day (ICD-10-PCS; 2019-01-10)
PROC: B2111ZZ Fluoroscopy of Multiple Coronary Arteries using Low Osmolar Contrast (ICD-10-PCS; 2019-01-11)
PROC: B2151ZZ Fluoroscopy of Left Heart using Low Osmolar Contrast (ICD-10-PCS; 2019-01-11)
PROC: 02703DZ Dilation of Coronary Artery, One Artery with Intraluminal Device, Percutaneous Approach (ICD-10-PCS; principal; 2019-01-11 14:45)
PROC: 4A023N7 Measurement of Cardiac Sampling and Pressure, Left Heart, Percutaneous Approach (ICD-10-PCS; 2019-01-11 14:45)
DX: I21.4 Non-ST elevation (NSTEMI) myocardial infarction (principal); N18.6 End stage renal disease; I13.2 Hypertensive heart and chronic kidney disease with heart failure and with stage 5 chronic kidney disease, or end stage renal disease; I95.9 Hypotension, unspecified; E11.22 Type 2 diabetes mellitus with diabetic chronic kidney disease; Z99.2 Dependence on renal dialysis; D63.1 Anemia in chronic kidney disease; F03.90 Unspecified dementia, unspecified severity, without behavioral disturbance, psychotic disturbance, mood disturbance, and anxiety; I50.9 Heart failure, unspecified; E11.40 Type 2 diabetes mellitus with diabetic neuropathy, unspecified; I25.10 Atherosclerotic heart disease of native coronary artery without angina pectoris; R11.2 Nausea with vomiting, unspecified; R10.9 Unspecified abdominal pain

== ENCOUNTER 2019-02-19 01:44 | Inpatient (IN) | payer MEDICARE, BC ==
[~2019-02-19] VITALS: Ht 172.7 cm; Wt 81.6 kg
[2019-02-19] VITALS (50 sets, daily range): BP systolic 125–202; BP diastolic 61–109; BMI 26.6
[~2019-02-19 01:44] MED LIST changes: +CARAFATE1 G PO; +PLAVIX75 MG PO
--- NOTE | 2019-02-19 02:49 | NUR ---
IV 22G TO RIGHT HAND RETAPED AND FLUSHED. WORKING WELL. RECONNECTED CARDENE AT 10/HOUR. WILL ATTEMPT TO DRAW LABS.
[2019-02-19 03:23] LABS: BASOPHILS 0.7 % (0-2); EOSINOPHILS 9.3 % (0-7); HEMATOCRIT 43.6 % (42.0-54.0); HEMOGLOBIN 13.9 g/dL (13.5-17.5); IMMATURE GRANULOCYTES 0.5 % (0-5); LYMPHOCYTES 27.1 % (15-50); MCH 29.3 pg (26.0-34.0); MCHC 31.9 g/dL (31.0-37.0); MCV 91.8 fL (80.0-100.0); MONOCYTES 10.5 % (2-11); NEUTROPHILS 51.9 % (40-80); PLATELET COUNT 100 10x3/uL (130-400); RBC 4.75 10x6/uL (4.20-6.10); RDW 15.7 % (11.5-14.5); WBC 5.5 10x3/uL (4.8-10.8)
--- NOTE | 2019-02-19 03:27 | NUR ---
LABS DRAWN WITH BUTTERFLY AFTER MULTIPLE ATTEMPTS.
[2019-02-19 03:38] LABS: APTT 32.5 SECONDS (22.8-39.4); INR 1.22 (0.85-1.17); PROTIME 14.9 SECONDS (11.6-15.0)
[2019-02-19 03:44] LABS: ALBUMIN 3.4 g/dL (3.4-5.0); ALKALINE PHOSPHATASE 133 U/L (46-116); ALT (SGPT) 30 U/L (10-68); BILIRUBIN - TOTAL 0.52 mg/dL (0.2-1.3); CALC OSMOLALITY 289 mosm/kg (275-300); CALCIUM 7.8 mg/dL (8.5-10.1); CARBON DIOXIDE 26.5 mmol/L (21.0-32.0); CHLORIDE - SERUM 102 mmol/L (98-107); CREATININE - SERUM 7.6 mg/dL (0.6-1.3); GLUCOSE 95 mg/dL (74-106); POTASSIUM - SERUM 4.3 mmol/L (3.5-5.1); PROTEIN - SERUM 6.8 g/dL (6.4-8.2); SODIUM 140 mmol/L (136-145); UREA NITROGEN 42 mg/dL (7-18); eGFR NON AFRICAN AMERICAN 7 mL/min (90-120)
[2019-02-19 03:58] LABS: CKMB 2.6 U/L (0.0-3.6); CREATINE KINASE 265 UL (21-232); MAGNESIUM - SERUM 1.7 mg/dL (1.8-2.4)
--- NOTE | 2019-02-19 04:00 | NUR ---
PT RESTING QUIETLY WITH EYES CLOSED. B/P DOWN. WILL MONITOR.
[2019-02-19 04:01] LABS: TROPONIN-I 0.086 ng/mL (0.000-0.060)
--- NOTE | 2019-02-19 05:52 | NUR ---
PT C/O NAUSEA, PRN ZOFRAN 4MG ADMININSTERED VIA SIVP PER MD ORDER.
[2019-02-19 09:18] LABS: CKMB 3.9 U/L (0.0-3.6); CREATINE KINASE 306 UL (21-232)
[2019-02-19 09:40] LABS: TROPONIN-I 0.168 ng/mL (0.000-0.060)
--- NOTE | 2019-02-19 11:56 | NUR ---
0700 ASSESSMENT COMPLETE CARDENE INFUSING AT 15M/HR CONFUSED COOPERATIVE
--- NOTE | 2019-02-19 11:59 | NUR ---
0900 ZOFRAN GIVEN IV FOR COPJLALINT ON NAUSEA COOL WET CLOTH APPLIED OVER HEAD ASKED PT TO TURN ON SIDE
--- NOTE | 2019-02-19 12:01 | NUR ---
1100 LUNCH TRAY SERVED APPETITE GOOD MINIMAL ASSIST WITH ADLS
--- NOTE | 2019-02-19 17:56 | NUR ---
1300 CALLED TO CHECK ON PATIENT VOICES NO COMPLAINTS
--- NOTE | 2019-02-19 19:05 | NUR ---
Received patient resting in bed with eyes closed, assessment completed per flowsheet. Patient awakens to stimuli/follows instructions, disoriented to time/place/situation. S1/S2 noted NSR on telemetry, rythmic and regular. Breathing is even/unlabored on room air with O2 sat 96%, lung sounds clear bilateral upper and mid with diminished lower. Abdomen is soft/flat with bowel sounds active x4, non-tender. Patient Anuric, ESRD. L upper arm Fistula with thrill/bruit noted, WNL. All pulses palpable with cap refill < 3 sec, skin warm/dry. Denies pain or other needs at this time, see flowsheet for details. All VSS and will continue to monitor.
--- NOTE | 2019-02-19 19:09 | NUR ---
1700 CARDENE WEANED OFF
--- NOTE | 2019-02-19 21:00 | NUR ---
Patient sitting in bed with eyes open, HS meds given without difficulty. Patient ate 20% of dinner tray, denies pain at this time. Will continue to monitor.
--- NOTE | 2019-02-19 23:00 | NUR ---
Reassessment completed per flowsheet, no changes noted from previous assessment. S1/S2 noted Sinus Vj on telemetry, rythmic and regular. Breathing is even/unlabored on room air with O2 sat 97%, lung sounds clear bilateral upper and mid with diminished lower. L upper arm fistula with thrill/bruit noted. All pulses palpable with cap refill < 3 sec, skin warm/dry. Denies pain or other needs at this time, see flowsheet for details. All VSS and will continue to monitor.
[2019-02-20] VITALS (20 sets, daily range): BP systolic 101–182; BP diastolic 67–701; Ht 172.7 cm; Wt 81.6 kg
--- NOTE | 2019-02-20 01:00 | NUR ---
Patient sleeping in bed with eyes closed, no s/s of distress at this time. Patient denies pain or other needs at this time, all VSS and will continue to monitor.
--- NOTE | 2019-02-20 02:55 | NUR ---
Reassessment completed per flowsheet, no changes noted from previous assessment. S1/S2 noted Sinus Vj on telemetry, rythmic and regular. Breathing is shallow on room air with O2 sat 95%, lung sounds clear bilateral upper and mid with diminished lower. All pulses palpable with cap refill < 3 sec, skin warm/dry. Denies pain or other needs at this time, see flowsheet for details. All VSS and will continue to monitor.
--- NOTE | 2019-02-20 05:00 | NUR ---
Patient sleeping in bed with eyes closed, no s/s of distress at this time. Patient denied bath this AM, states he wants to wait until later. Repositioned for comfort, denies pain or other needs and will continue to monitor.
[2019-02-20 07:46] LABS: BASOPHILS 1.1 % (0-2); EOSINOPHILS 10.1 % (0-7); HEMATOCRIT 35.1 % (42.0-54.0); LYMPHOCYTES 42.1 % (15-50); MCH 28.1 pg (26.0-34.0); MCHC 31.3 g/dL (31.0-37.0); MEAN PLATELET VOLUME 9.5 fL (7.4-10.4); MONOCYTES 8.6 % (2-11); NEUTROPHILS 38.1 % (40-80); RBC 3.91 10x6/uL (4.20-6.10); RDW 15.9 % (11.5-14.5); WBC 4.5 10x3/uL (4.8-10.8)
[2019-02-20 07:56] LABS: ANION GAP 12.8 mmol/L (8-16); CALCIUM 7.8 mg/dL (8.5-10.1); CARBON DIOXIDE 28.4 mmol/L (21.0-32.0); MAGNESIUM - SERUM 1.9 mg/dL (1.8-2.4); PHOSPHOROUS 4.1 mg/dL (2.5-4.9); POTASSIUM - SERUM 4.2 mmol/L (3.5-5.1)
[2019-02-20 08:00] LABS: MCV 89.8 fL (80.0-100.0); PLATELET COUNT 149 10x3/uL (130-400)
[2019-02-20 08:08] LABS: CREATININE - SERUM 10.4 mg/dL (0.6-1.3)
--- NOTE | 2019-02-20 08:37 | NUR ---
0700 AWALE ALERT DENIES PAIN LAB GLUCOSE 55 REPEAT CBS 65 BREAKFAST SERVED ATE 100% ORAL AND FACIAL CARE PROVIDED ASSESSMENT COMPLETE
--- NOTE | 2019-02-20 19:00 | NUR ---
BEDSIDE REPORT AND SHIFT ASSESSMENT COMPLETE. VSS, NO SIGNS OF ACUTE DISTRESS NOTED. DIALYSIS NURSE AT BEDSIDE. L ARM FISTULA WNL, R WRIST PIV SALINE LOCKED, WNL. HR 54 ON MONITOR, SINUS BETH. CALL LIGHT IN REACH, DENIES ANY NEEDS AT THIS TIME. WILL CONTINUE TO MONITOR.
--- NOTE | 2019-02-20 19:53 | NUR ---
0900 DR ENRIQUE AT BEDSIDE ASSESSING PATIENT
--- NOTE | 2019-02-20 19:55 | NUR ---
1500 TRANSFER ORDERS WRITTEN ORDERED DIALYSIS TODAY
--- NOTE | 2019-02-20 19:55 | NUR ---
1300 NO APPETITE FOR LUNCH
--- NOTE | 2019-02-20 19:55 | NUR ---
1700 DINNERTRAY SERVED APPETITE FAIR VOICES NO COMPLAINTS
--- NOTE | 2019-02-20 21:00 | NUR ---
MEDS GIVEN PER MAR, TOLERATED BY PT. MECHANIC FIELD SERVICE AT BEDSIDE, REQUESTING TO HOLD B/P MEDS, SHE IS GOING TO PULL FLUID OFF. PT DENIES ANY NEEDS AT THIS TIME, WILL CONTINUE TO MONITOR.
--- NOTE | 2019-02-20 23:15 | NUR ---
BP 182/84, MEDS GIVEN PER MAR. PEDIATRIC NP FINISHING UP.
--- NOTE | 2019-02-21 01:00 | NUR ---
PT REQUESTING WARM BLANKET AND ASKING IF WE WILL CALL HIS . I EXPLAINED THAT IT WAS 1 AM AND THAT WE WOULD CALL HER IN THE AM. HE SAID OK. DENIES ANY OTHER NEEDS. CALL LIGHT IN REACH, WILL CONTINUE TO MONITOR.
[2019-02-21 03:00] VITALS: BP 172/79
--- NOTE | 2019-02-21 03:00 | NUR ---
B/P 172/79, PRN MEDS GIVEN PER MAR. WILL CONTINUE TO MONITOR.
[2019-02-21 09:40] LABS: BASOPHILS 1.1 % (0-2); EOSINOPHILS 11.6 % (0-7); HEMATOCRIT 35.2 % (42.0-54.0); HEMOGLOBIN 10.3 g/dL (13.5-17.5); LYMPHOCYTES 39.7 % (15-50); MCH 27.4 pg (26.0-34.0); MCHC 29.3 g/dL (31.0-37.0); MONOCYTES 7.7 % (2-11); NEUTROPHILS 39.9 % (40-80); RBC 3.76 10x6/uL (4.20-6.10); WBC 3.8 10x3/uL (4.8-10.8)
[2019-02-21 09:42] LABS: MCV 93.6 fL (80.0-100.0); PLATELET COUNT 107 10x3/uL (130-400)
[2019-02-21 10:02] LABS: ANION GAP 13.5 mmol/L (8-16); CALCIUM 7.5 mg/dL (8.5-10.1); CARBON DIOXIDE 30.1 mmol/L (21.0-32.0); CREATININE - SERUM 8.9 mg/dL (0.6-1.3); POTASSIUM - SERUM 4.6 mmol/L (3.5-5.1)
[2019-02-21 11:00] VITALS: BP 178/83
--- NOTE | 2019-02-21 11:39 | MORECARE ---
CASE MANAGEMENT DISCHARGE SUMMARY PATIENT: KAREEM ZIEGLER UNIT: [id number] ADM DATE: 02/19/19 AGE: 78 : 42 SEX: M ROOM/BED: D.2304 AUTHOR: BLANCA SPRING PHYSICIAN: REFERRING PHYSICIAN: RAJINDER ZUNIGA DO DATE OF SERVICE: 02/21/19 Discharge Plan Patient Name: KAREEM ZIEGLER [facility] [facility] 1940 Planned Disposition: Home Anticipated Discharge Date: Discharge Date: Expected LOS: Initial Reviewer: [email or web address] Initial Review Date: 02/20/2019 Generated: 02/21/19 12:39 pm DCPIA - Discharge Planning Initial Assessment Updated by [email or web address]: Deb Perea on 02/21/19 11:37 am * Is the patient Alert and Oriented? Yes * How many steps to enter\exit or inside your home? * PCP ? medical center in [place] * Pharmacy [facility] * Preadmission Environment Home with Family * ADLs Partial Dependent * Partial ADLs (Assistance needed) Ambulation Bathing Dressing Eating Medication Management Toileting Transfers * Other Equipment walker, cane * List name and contact numbers for known caregivers / representatives who currently or will assist patient after discharge: Anh Ziegler - spouse- [phone] * Verbal permission to speak to the caregivers and representatives has been obtained from the patient. Yes * Community resources currently utilized None * Additional services required to return to the preadmission environment? No * Can the patient safely return to the preadmission environment? Yes * Has this patient been hospitalized within the prior 30 days at any hospital? No Patient Name: KAREEM ZIEGLER Page [phone] at 1139 All edits/amendments must be made on the electronic document DICTATION DATE: 02/21/19 113 DARKLIGHT INSPECTOR: ANGELITO 02/21/19 113 RPT#: [id number] DC DATE: STATUS: ADM IN [address] [id number] END OF REPORT
--- NOTE | 2019-02-21 11:54 | MORECARE ---
CASE MANAGEMENT DISCHARGE SUMMARY PATIENT: KAREEM ZIEGLER UNIT: [id number] ADM DATE: 02/19/19 AGE: 78 : 42 SEX: M ROOM/BED: D.2304 AUTHOR: CLEMENTINE,DOC PHYSICIAN: REFERRING PHYSICIAN: RAJINDER ZUNIGA DO DATE OF SERVICE: 02/21/19 Discharge Plan Patient Name: KAREEM ZIEGLER Facility: [facility]:[place] : 1940 Planned Disposition: Home Anticipated Discharge Date: Discharge Date: Expected LOS: Initial Reviewer: [email or web address] Initial Review Date: 02/20/2019 Generated: 02/21/19 12:54 pm Comments DCP- Discharge Planning Updated by [email or web address]: Deb Perea on 02/21/19 10:[address] Patient Name: KAREEM ZIEGLER Admission Status: ER Accout number: [id number] Admission Date: 02-19-2019 : 1940 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 Patient lives at home with his Anh where he is partial dependent of his care and plans to return there upon discharge. Patient feels this would be a safe discharge. CM discussed availability / needs of home health and medical equipment. Patient has HD in [facility]. Patient states you may want to check with my about all of this. Patient denies any discharge needs at this time. Patient states he will have his family drive him home upon discharge. CM will continue to follow and assist as needed with discharge planning / needs. Soil Sampler: Deb Perea DCPIA - Discharge Planning Initial Assessment Updated by [email or web address]: Deb Perea on 02/21/19 11:37 am * Is the patient Alert and Oriented? Yes * How many steps to enter\exit or inside your home? * PCP ? medical center in [place] * Pharmacy [facility] * Preadmission Environment Home with Family * ADLs Partial Dependent * Partial ADLs (Assistance needed) Ambulation Bathing Dressing Eating Medication Management Toileting Transfers * Other Equipment walker, cane * List name and contact numbers for known caregivers / representatives who currently or will assist patient after discharge: Anh Ziegler - spouse- [phone] * Verbal permission to speak to the caregivers and representatives has been obtained from the patient. Yes * Community resources currently utilized None * Additional services required to return to the preadmission environment? No * Can the patient safely return to the preadmission environment? Yes * Has this patient been hospitalized within the prior 30 days at any hospital? No Last DP export: 02/21/19 10:39 a Patient Name: KAREEM ZIEGLER Page 44099 at 1154 All edits/amendments must be made on the electronic document DICTATION DATE: 02/21/19 1154 NURSING TECH: ANGELITO 02/21/19 1154 RPT#: [id number] DC DATE: STATUS: ADM IN [facility] [address] [place] [address] END OF REPORT
--- NOTE | 2019-02-21 13:14 | NUR ---
0700 AWAKE ALERT CONFUSION NOTED TO TIME AND SITUATION ASSESSMENT COMPLETE VOICES NO C/O PAIN APPETITE GOOD
--- NOTE | 2019-02-21 13:17 | NUR ---
09 UNABLE TO FIND PATIENTS GLASSES REPORTED TO DIEGO TOMAS RN
--- NOTE | 2019-02-21 14:41 | NUR ---
1415 D/C HOME WITH BROTHER SEARCHED ROOM FOR HIS GLASSES UNABLE TO FIND THEM
--- NOTE | 2019-02-22 09:25 | MORECARE ---
CASE MANAGEMENT DISCHARGE SUMMARY PATIENT: KAREEM ZIEGLER UNIT: [id number] ADM DATE: 02/19/19 AGE: 78 : 42 SEX: M ROOM/BED: D.2304 AUTHOR: CLEMENTINE,DOC PHYSICIAN: REFERRING PHYSICIAN: RAJINDER ZUNIGA DO DATE OF SERVICE: 02/22/19 Discharge Plan Patient Name: KAREEM ZIEGLER Facility: [facility]:[place] : 1940 Planned Disposition: Home Anticipated Discharge Date: Discharge Date: 02/21/2019 Expected LOS: Initial Reviewer: [email or web address] Initial Review Date: 02/20/2019 Generated: 02/22/19 10:25 am Comments DCP- Discharge Planning Updated by [email or web address]: Deb Perea on 02/21/19 10:[address] Patient Name: KAREEM ZIEGLER Admission Status: ER Accout number: [id number] Admission Date: 02-19-2019 : 1940 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 Patient lives at home with his Anh where he is partial dependent of his care and plans to return there upon discharge. Patient feels this would be a safe discharge. CM discussed availability / needs of home health and medical equipment. Patient has HD in [facility]. Patient states you may want to check with my about all of this. Patient denies any discharge needs at this time. Patient states he will have his family drive him home upon discharge. CM will continue to follow and assist as needed with discharge planning / needs. Assembly Lead Person: Deb Perea DCPIA - Discharge Planning Initial Assessment Updated by [email or web address]: Deb Perea on 02/21/19 11:37 am * Is the patient Alert and Oriented? Yes * How many steps to enter\exit or inside your home? * PCP ? medical center in [place] * Pharmacy [facility] * Preadmission Environment Home with Family * ADLs Partial Dependent * Partial ADLs (Assistance needed) Ambulation Bathing Dressing Eating Medication Management Toileting Transfers * Other Equipment walker, cane * List name and contact numbers for known caregivers / representatives who currently or will assist patient after discharge: Anh Ziegler - spouse- [phone] * Verbal permission to speak to the caregivers and representatives has been obtained from the patient. Yes * Community resources currently utilized None * Additional services required to return to the preadmission environment? No * Can the patient safely return to the preadmission environment? Yes * Has this patient been hospitalized within the prior 30 days at any hospital? No Last DP export: 02/21/19 10:54 a Patient Name: KAREEM ZIEGLER Page [phone] at 0925 All edits/amendments must be made on the electronic document DICTATION DATE: 02/22/19923 WOUND TREATMENT RN: ANGELITO 02/22/19923 RPT#: [id number] DC DATE:02/21/19 STATUS: DIS IN [facility] [address] [place] [address] END OF REPORT
== END 2019-02-21 14:44 | disposition home or self-care (01) | DRG 304 ==
LOC: D.ER 01:44 → D.ICU 04:26
PROVIDERS: Family Medicine; Internal Medicine Nephrology; ADMIT Internal Medicine; ATTEND Internal Medicine
DX: I16.0 Hypertensive urgency (principal); N18.6 End stage renal disease; I13.2 Hypertensive heart and chronic kidney disease with heart failure and with stage 5 chronic kidney disease, or end stage renal disease; E11.22 Type 2 diabetes mellitus with diabetic chronic kidney disease; I50.9 Heart failure, unspecified; Z99.2 Dependence on renal dialysis; K21.9 Gastro-esophageal reflux disease without esophagitis; F03.90 Unspecified dementia, unspecified severity, without behavioral disturbance, psychotic disturbance, mood disturbance, and anxiety

== ENCOUNTER 2019-05-13 21:35 | Inpatient (IN) | payer MEDICARE, BC ==
[~2019-05-13] VITALS: Ht 172.7 cm; Wt 86.2 kg
[2019-05-13 22:11] VITALS: BP 218/101
--- NOTE | 2019-05-13 22:11 | NUR ---
PT STATES NO RELIEF FROM 1'ST NITRO. SECOND NITRO GIVEN.
[2019-05-13 22:30] VITALS: BP 222/96
[2019-05-13 22:34] LABS: APTT 26.1 SECONDS (22.8-39.4); INR 1.21 (0.85-1.17); PROTIME 14.8 SECONDS (11.6-15.0)
[2019-05-13 22:45] LABS: BASOPHILS 0.5 % (0-2); HEMATOCRIT 48.4 % (42.0-54.0); HEMOGLOBIN 15.5 g/dL (13.5-17.5); IMMATURE GRANULOCYTES 0.3 % (0-5); LYMPHOCYTES 21.8 % (15-50); MCH 31.1 pg (26.0-34.0); MEAN PLATELET VOLUME 9.3 fL (7.4-10.4); MONOCYTES 8.3 % (2-11); NEUTROPHILS 67.1 % (40-80); PLATELET COUNT 143 10x3/uL (130-400); RBC 4.99 10x6/uL (4.20-6.10); RDW 16.7 % (11.5-14.5); WBC 6.5 10x3/uL (4.8-10.8)
[2019-05-13 23:00] VITALS: BP 219/110
[2019-05-13 23:03] LABS: CALC OSMOLALITY 290 mosm/kg (275-300); CARBON DIOXIDE 26.8 mmol/L (21.0-32.0); CHLORIDE - SERUM 102 mmol/L (98-107); CREATININE - SERUM 9.4 mg/dL (0.6-1.3); GLUCOSE 118 mg/dL (74-106); SODIUM 140 mmol/L (136-145); UREA NITROGEN 43 mg/dL (7-18); eGFR NON AFRICAN AMERICAN 6 mL/min (90-120)
--- NOTE | 2019-05-13 23:08 | NUR ---
PT HYPERTENSIVE, RN ADMINISTERED HYDRALAZINE ORDERED.
[2019-05-13 23:24] LABS: ALBUMIN 3.6 g/dL (3.4-5.0); ALKALINE PHOSPHATASE 146 U/L (46-116); ALT (SGPT) 28 U/L (10-68); BILIRUBIN - TOTAL 0.51 mg/dL (0.2-1.3); CREATINE KINASE 316 UL (21-232); MAGNESIUM - SERUM 1.9 mg/dL (1.8-2.4); PROTEIN - SERUM 7.3 g/dL (6.4-8.2)
[2019-05-13 23:25] LABS: CKMB 1.3 U/L (0.0-3.6); TROPONIN-I 0.173 ng/mL (0.000-0.060)
[2019-05-13 23:35] VITALS: BP 237/95
[2019-05-14] VITALS (12 sets, daily range): BP systolic 157–223; BP diastolic 61–110; BMI 28.9
--- NOTE | 2019-05-14 00:53 | NUR ---
REPORT CALLED TO MARKELL ON MED 2. WILL CONTINUE TO MONITOR PT BP PER DR ROWE.
--- NOTE | 2019-05-14 01:15 | NUR ---
RECIEVED TO ROOM ALERT AND CONFUSED, NO FAMILY PRESENT, POOR HISTORIAN UNABLE TO REVIEW HOME MEDS, FISTULA NOTED TO LEFT FOREARM, SEE ASSESSMENT, CALL LIGHT IN REACH FALL PRECAUTIONS IN PLACE BED ALARM ON
[2019-05-14 07:22] LABS: BASOPHILS 0.6 % (0-2); EOSINOPHILS 2.3 % (0-7); HEMATOCRIT 46.4 % (42.0-54.0); HEMOGLOBIN 14.8 g/dL (13.5-17.5); IMMATURE GRANULOCYTES 0.3 % (0-5); LYMPHOCYTES 28.1 % (15-50); MCH 31.4 pg (26.0-34.0); MCHC 31.9 g/dL (31.0-37.0); MCV 98.5 fL (80.0-100.0); MEAN PLATELET VOLUME 9.7 fL (7.4-10.4); MONOCYTES 8.9 % (2-11); NEUTROPHILS 59.8 % (40-80); PLATELET COUNT 164 10x3/uL (130-400); RBC 4.71 10x6/uL (4.20-6.10); RDW 16.9 % (11.5-14.5); WBC 6.2 10x3/uL (4.8-10.8)
[2019-05-14 07:54] LABS: ANION GAP 15.3 mmol/L (8-16); CALCIUM 8.6 mg/dL (8.5-10.1); CARBON DIOXIDE 26.9 mmol/L (21.0-32.0); MAGNESIUM - SERUM 1.8 mg/dL (1.8-2.4); POTASSIUM - SERUM 4.2 mmol/L (3.5-5.1)
--- NOTE | 2019-05-14 18:31 | NUR ---
RECEIVED PT TO ICU. ALL MONITORING EQUIPMENT ATTACHED AND ALARMS SET. DR YUAN NOTIFIED OF ROOM NUMBER UPON PTS ARRIVAL TO ICU. REPORTED BP 210/93. REC'D NEW ORDERS. PT PULLING AT LINES AND INTERFEARING WITH CARE. SOFT WRIST RESTRAINTS APPLIED ORDERED. PT FRANCISCO J WELL.
--- NOTE | 2019-05-14 19:00 | NUR ---
REPORT RECEIVED. RECEIVED PATIENT IN BED,RESTING WITH EYES CLOSED. ROUSES TO VERBAL STIMULI/DROWSY/CONFUSED. ORIENTED TO PERSON ONLY. SPEECH CLEAR. ASSESSMENT COMPLETED PER FLOW SHEET WITH NO ACUTE DISTRESS OBSERVED. MONITORS CONNECTED TO PATIENT WITH ALARMS SET. VSS. BP CONTINUES ELEVATED SYST 200'S/ STARTING TO DECREASE. WILL CONT POC. CALL LIGHT IN REACH
--- NOTE | 2019-05-14 21:00 | NUR ---
RESTING WITH EYES CLOSED ROUSES TO VERBAL STIMULI. VSS. BP IMPROVING
--- NOTE | 2019-05-14 23:00 | NUR ---
REASSESSMENT COMPLETED PER FLOW SHEET WITH NO ACUTE DISTRESS OBSERVED. VSS. CALL LIGHT IN REACH
[2019-05-15] VITALS (21 sets, daily range): BP systolic 144–199; BP diastolic 60–84; Ht 172.7 cm; Wt 86.2 kg
--- NOTE | 2019-05-15 01:00 | NUR ---
RESTING QUIETLY WITH EYES CLOSED, ROUSES EASILY AND ALERT. VSS
--- NOTE | 2019-05-15 03:00 | NUR ---
REASSESSMENT COMPLETED PER FLOW SHEET WITH NO ACUTE DISTRESS OBSERVED AT PRESENT. VSS.
--- NOTE | 2019-05-15 07:00 | NUR ---
PT RESTING IN BED, VSS AND WNL. SHIFT ASSESSMENT PERFORMED. BED ALARM ON. PT ANSWERING ALL QUESTIONS. CALL LIGHT WITHIN REACH. WILL CONT TO FOLLOW POC
[2019-05-15 07:14] LABS: BASOPHILS 0.5 % (0-2); EOSINOPHILS 3.6 % (0-7); HEMATOCRIT 41.1 % (42.0-54.0); HEMOGLOBIN 13.2 g/dL (13.5-17.5); IMMATURE GRANULOCYTES 0.2 % (0-5); LYMPHOCYTES 29.8 % (15-50); MCHC 32.1 g/dL (31.0-37.0); MEAN PLATELET VOLUME 9.9 fL (7.4-10.4); NEUTROPHILS 54.9 % (40-80); PLATELET COUNT 137 10x3/uL (130-400); RBC 4.26 10x6/uL (4.20-6.10); RDW 16.7 % (11.5-14.5); WBC 5.8 10x3/uL (4.8-10.8)
[2019-05-15 07:19] LABS: MCV 96.5 fL (80.0-100.0)
[2019-05-15 07:27] LABS: ANION GAP 18.2 mmol/L (8-16); CALCIUM 8.1 mg/dL (8.5-10.1); PHOSPHOROUS 4.2 mg/dL (2.5-4.9); POTASSIUM - SERUM 4.2 mmol/L (3.5-5.1)
[2019-05-15 07:29] LABS: CREATININE - SERUM 12.6 mg/dL (0.6-1.3)
--- NOTE | 2019-05-15 08:15 | NUR ---
ASSISTED PT TO SIDE OF BED AND TRAY SET UP PROVIDED.
--- NOTE | 2019-05-15 10:00 | NUR ---
ASSISTED PT TO BATHROOM AND BACK TO BED. PT AMBULATED WELL WITH ASSISTANCE. BED ALARM ON. DENIES ANY NEEDS AT THIS TIME, CALL LIGHT WITHIN REACH. WILL CONT TO FOLLOW POC
--- NOTE | 2019-05-15 11:09 | NUR ---
PT RESTING IN BED, VSS AND WNL. CALL LIGHT WITHIN REACH, BED ALARM ON. PT ANSWERS ALL NEURO QUESTIONS CORRECTLY. DENIES ANY NEEDS AT THIS TIME, WILL CONT TO FOLLOW POC
--- NOTE | 2019-05-15 12:00 | NUR ---
ASSISTED PT TO SIT ON THE SIDE OF BED AND TRAY SET UP PROVIDED. VSS. DENIES ANY FURTHER NEEDS AT THIS TIME, WILL CONT TO FOLLOW POC
--- NOTE | 2019-05-15 14:00 | NUR ---
PT RESTING IN BED, VSS AND WNL. PT WATCHING TV. BED ALARM ON. DENIES ANY NEEDS AT THIS TIME, WILL CONT TO FOLLOW POC
--- NOTE | 2019-05-15 16:00 | NUR ---
PT RESTING IN BED, VSS AND WNL. ASSISTED PT UP TO BEDSIDE FOR SUPPER. BED ALARM ON. DENIES ANY NEEDS AT THIS TIME, WILL CONT TO FOLLOW POC
--- NOTE | 2019-05-15 18:00 | NUR ---
PT RECIEVING DIALYSIS AT THIS TIME, VSS. BED ALARM ON. DENIES ANY NEEDS AT THIS TIME, WILL CONT TO FOLLOW POC
--- NOTE | 2019-05-15 19:45 | NUR ---
SHIFT ASSESSMENT COMPLETE. PATIENT IN GOOD STABLE CONDITION, WILL CONTINUE TO MONITOR. DIALYSIS NURSE AT BEDSIDE. CALL LIGHT WITHIN REACH, BED IN LOW POSITION.
--- NOTE | 2019-05-15 21:30 | NUR ---
PATIENT UP TO BATHROOM WITH ASSIST. NO CHANGES IN CONDITION.
[2019-05-16] VITALS (16 sets, daily range): BP systolic 133–188; BP diastolic 54–91
[2019-05-16 03:57] LABS: BASOPHILS 0.4 % (0-2); EOSINOPHILS 7.1 % (0-7); HEMATOCRIT 38.9 % (42.0-54.0); HEMOGLOBIN 12.4 g/dL (13.5-17.5); IMMATURE GRANULOCYTES 0.2 % (0-5); LYMPHOCYTES 34.4 % (15-50); MCH 30.6 pg (26.0-34.0); MCHC 31.9 g/dL (31.0-37.0); MEAN PLATELET VOLUME 9.3 fL (7.4-10.4); MONOCYTES 10.8 % (2-11); NEUTROPHILS 47.1 % (40-80); PLATELET COUNT 126 10x3/uL (130-400); RBC 4.05 10x6/uL (4.20-6.10); RDW 16.3 % (11.5-14.5); WBC 4.8 10x3/uL (4.8-10.8)
[2019-05-16 04:11] LABS: CALCIUM 7.8 mg/dL (8.5-10.1); CARBON DIOXIDE 27.1 mmol/L (21.0-32.0); CREATININE - SERUM 10.4 mg/dL (0.6-1.3); PHOSPHOROUS 3.8 mg/dL (2.5-4.9); POTASSIUM - SERUM 4.1 mmol/L (3.5-5.1)
[2019-05-16] MEDS ORDERED: OMNICEF300 MG PO (06:21)
[2019-05-16] MEDS ORDERED: HUMALOG 30100 UNITS/ SC (06:22)
[2019-05-16] MEDS ORDERED: DESERYL PO (06:23)
[2019-05-16] MEDS ORDERED: CARDURA2 MG PO (06:23)
--- NOTE | 2019-05-16 06:51 | NUR ---
DR. YUAN HERE IN TO SEE PATIENT AND NEW ORDERS RECEIVED.
--- NOTE | 2019-05-16 07:00 | NUR ---
RECEIVED BEDSIDE REPORT AND ASSUMED CARE OF PATIENT. PATIENT ALERT AND ORIENTED X 4, VSS. BBS - CLEAR AND EQUAL, SPO2 - 98% ON RA. CM RATE OF 69 NSR. PATIENT UP TO BEDSIDE CHAIR FOR BREAKFAST. HEAD TO TOE ASSESSMENT COMPLETED.
--- NOTE | 2019-05-16 07:40 | NUR ---
PATIENT GIVEN BREAKFAST TRAY AND MORNING MEDS PER MAR.
--- NOTE | 2019-05-16 09:07 | NUR ---
PATEINT ATE 100% OF BREAKFAST AND WANTS BACK TO BED. ASSISTED BACK TO BEDS. SCDS IN PLACE. VSS.
--- NOTE | 2019-05-16 09:25 | NUR ---
PATIENT WATCHING TV WITH NO NEEDS AT THIS TIME.
--- NOTE | 2019-05-16 10:30 | NUR ---
PATIENT WATCHING TV, NO NEEDS AT THIS TIME. VSS.
--- NOTE | 2019-05-16 11:00 | NUR ---
REASSESSMENT COMPLETED. VSS. PATIENT RESTING QUIETLY, NO NEEDS AT THIS TIME.
--- NOTE | 2019-05-16 11:11 | CN ---
PATIENT NAME:KAREEM KOROMA MEDICAL RECORD: [id number] : 44 LOCATION:[id number] ADMIT DATE: 05/13/19 ACCOUNT: [id number] CONSULTING PHYSICIAN: RAPHAEL HERNANDEZ MD REFERRING PHYSICIAN: FREDY YUAN MD DATE OF CONSULTATION: 05/15/2019 IDENTIFYING DATA: The patient is 78 years old. He is admitted to the hospital on a voluntary basis. CHIEF COMPLAINT: Confusion. HISTORY OF PRESENT ILLNESS: The patient was brought to the hospital because he had been wandering around his house, confused, and would not come into the house. When I questioned him about this, he denies that it ever happened. He says that his is bothering him and harassing him and that he is fed up with it and that he is not going to go home to her. He is very matter of fact about this. He has clear evidence of confusion and also has an established diagnosis of dementia. MENTAL STATUS EXAMINATION: The patient is awake, alert, and oriented to person and place and somewhat to time and situation. His mood is depressed. His affect is constricted. Thought processes are disorganized. Memory, concentration, and abstraction abilities are moderately impaired. He denies that he would seek to harm himself or others as well as psychotic symptoms. ASSESSMENT: 1. Dementia. 2. Rule out major depression. PLAN: The patient is experiencing regular episodes of agitated behavior. Last night in the hospital, he was agitated, required physical restraints and had to be given a sedative. He is a little calmer today. Apparently, these behaviors have been going on at home. I would recommend that he be transferred to the behavioral unit once medically stabilized and that he be evaluated there and treated for his agitated behavior. TRANSINT:[id number] Voice Confirmation ID: [id number] DOCUMENT ID: [id number] RAPHAEL HERNANDEZ MD at 1111 CC: [id number] DICTATION DATE: 05/15/191703 STEWARD/STEWARDESS NIGHT: 05/16/193 ADM IN [facility] [address] [place] [address]
--- NOTE | 2019-05-16 11:43 | NUR ---
PATIENT TO CT FOR CT GUIDED THORACENTESIS WITH IR RN AND FUNERAL HOME MANAGER. VSS.
--- NOTE | 2019-05-16 11:45 | NUR ---
PATIENT UP TO BEDSIDE CHAIR FOR LUNCH. VSS.
--- NOTE | 2019-05-16 12:02 | NUR ---
SPOKE TO DR HERNANDEZ REGARDING PATIENT ALERT AND ORIENTED X 4, WILLING TO STAY TO GET MEDICATIONS WORKED OUT, STATES OK TO DISCHARGE PATIENT. CONTACTED DR. BUCHANAN, PATIENT NOT WANTING TO GO HOME, CASE MANAGEMENT LOOKING FOR PLACEMENT TO REHAB FACILITY BUT UNLIKELY TO OBTAIN UNTIL AFTER KAIN. STATES TO TRANSER PATIENT TO MED 2 ON TELEMETRY WITH ALL CURRENT MEDICATIONS.
--- NOTE | 2019-05-16 12:06 | NUR ---
DR. HERNANDEZ AT ROOM UPDATED AND EXAMINES PATIENT.
--- NOTE | 2019-05-16 12:44 | NUR ---
PATIENT ATE 100% OF LUNCH. VSS. NO NEEDS AT THIS TIME.
--- NOTE | 2019-05-16 13:05 | MORECARE ---
CASE MANAGEMENT DISCHARGE SUMMARY PATIENT: KAREEM KOROMA UNIT: [id number] ADM DATE: 05/13/19 AGE: 78 : 42 SEX: M ROOM/BED: D.[facility] AUTHOR: BLANCA SPRING PHYSICIAN: REFERRING PHYSICIAN: FREDY YUAN MD DATE OF SERVICE: 05/16/19 Discharge Plan Patient Name: KAREEM KOROMA [facility] : 1940 Planned Disposition: Anticipated Discharge Date: Discharge Date: Expected LOS: Initial Reviewer: [email or web address] Initial Review Date: 05/16/2019 Generated: 05/16/19 2:05 pm DCPIA - Discharge Planning Initial Assessment Updated by [email or web address]: Deb Perea on 05/16/19 1:02 pm * Is the patient Alert and Oriented? Yes * How many steps to enter\exit or inside your home? * PCP JUAN * Pharmacy [facility] * Preadmission Environment Home with Family * ADLs Independent * Other Equipment WALKER, CANE * List name and contact numbers for known caregivers / representatives who currently or will assist patient after discharge: LESLEY KOROMA - - [phone] RACHAEL KOROMA - BROTHER- [phone] * Verbal permission to speak to the caregivers and representatives has been obtained from the patient. Yes * Community resources currently utilized None * Please name any agencies selected above. [facility] - [facility] [place] * Additional services required to return to the preadmission environment? No * Can the patient safely return to the preadmission environment? Yes * Has this patient been hospitalized within the prior 30 days at any hospital? No Patient Name: KAREEM KOROMA Page [phone] at 1305 All edits/amendments must be made on the electronic document DICTATION DATE: 05/16/19 1304 NEMATOLOGY TEACHER: ANGELITO 05/16/19 1304 RPT#: [id number] DC DATE: STATUS: ADM IN [facility] [address] [place] [address] END OF REPORT
--- NOTE | 2019-05-16 13:11 | NUR ---
PATIENT WALKED APPROXIMATELY 160 FT WITH PT IN MISHRA.
--- NOTE | 2019-05-16 13:20 | NUR ---
REPORT CALLED TO MED 2 AND GIVEN TO DOMINGO ARBOLEDA. PATIENT TRANSPORTED VIA WHEELCHAIR TO ROOM 2134.
--- NOTE | 2019-05-16 13:40 | NUR ---
RECEIVED PATIENT TO ROOM 2134 AT THIS TIME. NO DISTRESS.
--- NOTE | 2019-05-16 13:57 | MORECARE ---
CASE MANAGEMENT DISCHARGE SUMMARY PATIENT: KAREEM KOROMA UNIT: [id number] ADM DATE: 05/13/19 AGE: 78 : 42 SEX: M ROOM/BED: D.0434 AUTHOR: BLANCA SPRING PHYSICIAN: REFERRING PHYSICIAN: FREDY FARR MD DATE OF SERVICE: 05/16/19 Discharge Plan Patient Name: KAREEM KOROMA Facility: [facility]:[place] : 1940 Planned Disposition: Anticipated Discharge Date: Discharge Date: Expected LOS: Initial Reviewer: [email or web address] Initial Review Date: 05/16/2019 Generated: 05/16/19 2:57 pm Comments DCP- Discharge Planning Updated by [email or web address]: Deb Perea on 05/16/19 12:[address] Patient Name: KAREEM KOROMA Admission Status: ER Accout number: [id number] Admission Date: 05-13-2019 : 1940 Admission Diagnosis: Attending: Fredy Farr Current LOS: 3 Anticipated DC Date: Planned Disposition: Primary Insurance: MEDICARE A & B Discharge Planning Comments: CM met with patient at bedside after explaining CM role and obtaining verbal consent. Patient lives at home with his Lesley where he is independent with his care. Patient states he would like to go to rehab at the senior living ([facility]) Patient feels this would be a safe discharge. Patient states he has dialysis [facility] in [place] CM discussed availability / needs of home health and medical equipment. Patient signed NOEMÍ for [facility]. CM will continue to follow and assist as needed with discharge planning / needs. Chief Pharmacist: Deb Perea DCPIA - Discharge Planning Initial Assessment Updated by [email or web address]: Deb Perea on 05/16/19 1:02 pm * Is the patient Alert and Oriented? Yes * How many steps to enter\exit or inside your home? * PCP JUAN * Pharmacy [facility] * Preadmission Environment Home with Family * ADLs Independent * Other Equipment WALKER, CANE * List name and contact numbers for known caregivers / representatives who currently or will assist patient after discharge: LESLEY KOROMA - - [phone] RACHAEL Balderas BROTHER- [phone] * Verbal permission to speak to the caregivers and representatives has been obtained from the patient. Yes * Community resources currently utilized None * Please name any agencies selected above. [facility] [place] * Additional services required to return to the preadmission environment? No * Can the patient safely return to the preadmission environment? Yes * Has this patient been hospitalized within the prior 30 days at any hospital? No Last DP export: 05/16/19 12:05 Patient Name: KAREEM KOROMA Page [phone] at 1357 All edits/amendments must be made on the electronic document DICTATION DATE: 05/16/191356 MILK RECEIVER TANK TRUCK: ANGELITO 05/16/19 1357 RPT#: [id number] DC DATE: STATUS: ADM IN [facility] [address] [place] [address] END OF REPORT
--- NOTE | 2019-05-16 14:13 | MORECARE ---
CASE MANAGEMENT DISCHARGE SUMMARY PATIENT: KAREEM KOROMA UNIT: [id number] ADM DATE: 05/13/19 AGE: 78 : 42 SEX: M ROOM/BED: D.3054 AUTHOR: BLANCA SPRING PHYSICIAN: REFERRING PHYSICIAN: FREDY FARR MD DATE OF SERVICE: 05/16/19 Discharge Plan Patient Name: KAREEM KOROMA Facility: [facility]:[place] : 1940 Planned Disposition: Anticipated Discharge Date: Discharge Date: Expected LOS: Initial Reviewer: [id number] Initial Review Date: 05/16/2019 Generated: 05/16/19 3:12 pm Comments DCP- Discharge Planning Updated by [id number]: Deb Perea on 05/16/19 12:[address] Patient Name: KAREEM KOROMA Admission Status: ER Accout number: [id number] Admission Date: 05-13-2019 : 1940 Admission Diagnosis: Attending: Fredy Farr Current LOS: 3 Anticipated DC Date: Planned Disposition: Primary Insurance: MEDICARE A & B Discharge Planning Comments: CM met with patient at bedside after explaining CM role and obtaining verbal consent. Patient lives at home with his Lesley where he is independent with his care. Patient states he would like to go to rehab at the senior living ([facility]) Patient feels this would be a safe discharge. Patient states he has dialysis [facility] in [place] CM discussed availability / needs of home health and medical equipment. Patient signed NOEMÍ for [facility]. CM will continue to follow and assist as needed with discharge planning / needs. Environmental Lead: Deb Perea DCPIA - Discharge Planning Initial Assessment Updated by [email or web address]: Deb Perea on 05/16/19 1:02 pm * Is the patient Alert and Oriented? Yes * How many steps to enter\exit or inside your home? * PCP JUAN * Pharmacy [facility] * Preadmission Environment Home with Family * ADLs Independent * Other Equipment WALKER, CANE * List name and contact numbers for known caregivers / representatives who currently or will assist patient after discharge: LESLEY KOROMA - - [phone] RACHAEL PEREA- [phone] * Verbal permission to speak to the caregivers and representatives has been obtained from the patient. Yes * Community resources currently utilized None * Please name any agencies selected above. [facility] [place] * Additional services required to return to the preadmission environment? No * Can the patient safely return to the preadmission environment? Yes * Has this patient been hospitalized within the prior 30 days at any hospital? No External Providers External Provider: [facility] Next Contact Date: Service Request Date: Service Type: Resolution: Reviewer: Comments: Coverage Notice Reviewer: [id number] - Deb Perea Notice Issued Date-Time: 05/16/2019 12:00 Notice Type: Patient Choice Letter Notice Delivered To: Patient Relationship to Patient: Self Community Development Manager Name: Delivery Method: HAND - Hand Delivered Aleida Days: Prior Verbal Notification: Recipient Understood Notice: Yes Recipient Signature: Yes Med Rec Note Co-signed by Attending: Coverage Notice Comment: Last DP export: 05/16/19 12:57 Patient Name: KAREEM KOROMA Page 35650 at 1413 All edits/amendments must be made on the electronic document DICTATION DATE: 05/16/191411 CLINICAL FELLOW: ANGELITO 05/16/191411 RPT#: [id number] DC DATE: STATUS: ADM IN [facility] [address] [place] [address] END OF REPORT
--- NOTE | 2019-05-16 14:23 | MORECARE ---
CASE MANAGEMENT DISCHARGE SUMMARY PATIENT: KAREEM KOROMA UNIT: [id number] ADM DATE: 05/13/19 AGE: 78 : 42 SEX: M ROOM/BED: D.1374 AUTHOR: BLANCA SPRING PHYSICIAN: REFERRING PHYSICIAN: FREDY FARR MD DATE OF SERVICE: 05/16/19 Discharge Plan Patient Name: KAREEM KOROMA Facility: [facility]:[place] : 1940 Planned Disposition: Anticipated Discharge Date: Discharge Date: Expected LOS: Initial Reviewer: [email or web address] Initial Review Date: 05/16/2019 Generated: 05/16/19 3:22 pm Comments DCP- Discharge Planning Updated by [email or web address]: Deb Perea on 05/16/19 1:[address] CM sent referral to [facility]. Most likely will not here anything until after holidays. CM will continue to follow and assist as needed with discharge planning / needs. DCP- Discharge Planning Updated by [email or web address]: Deb Perea on 05/16/19 12:[address] Patient Name: KAREEM KOROMA Admission Status: ER Accout number: [id number] Admission Date: 05-13-2019 : 1940 Admission Diagnosis: Attending: Fredy Farr Current LOS: 3 Anticipated DC Date: Planned Disposition: Primary Insurance: MEDICARE A & B Discharge Planning Comments: CM met with patient at bedside after explaining CM role and obtaining verbal consent. Patient lives at home with his Lesley where he is independent with his care. Patient states he would like to go to rehab at the senior living ([facility]) Patient feels this would be a safe discharge. Patient states he has dialysis [facility] in [place] CM discussed availability / needs of home health and medical equipment. Patient signed NOEMÍ for [facility]. CM will continue to follow and assist as needed with discharge planning / needs. Physician Aide: Deb Perea DCPIA - Discharge Planning Initial Assessment Updated by [email or web address]: Deb Perea on 05/16/19 1:02 pm * Is the patient Alert and Oriented? Yes * How many steps to enter\exit or inside your home? * PCP JUAN * Pharmacy [facility] * Preadmission Environment Home with Family * ADLs Independent * Other Equipment WALKER, CANE * List name and contact numbers for known caregivers / representatives who currently or will assist patient after discharge: LESLEY KOROMA - - [phone] RACHAEL KOROMA - BROTHER- [phone] * Verbal permission to speak to the caregivers and representatives has been obtained from the patient. Yes * Community resources currently utilized None * Please name any agencies selected above. [facility] [place] * Additional services required to return to the preadmission environment? No * Can the patient safely return to the preadmission environment? Yes * Has this patient been hospitalized within the prior 30 days at any hospital? No Coverage Notice Reviewer: [id number] Andrey Perea Notice Issued Date-Time: 05/16/2019 12:00 Notice Type: Patient Choice Letter Notice Delivered To: Patient Relationship to Patient: Self Pulp Roller Name: Delivery Method: HAND - Hand Delivered Aleida Days: Prior Verbal Notification: Recipient Understood Notice: Yes Recipient Signature: Yes Med Rec Note Co-signed by Attending: Coverage Notice Comment: Last DP export: 05/16/19 1:13 Patient Name: KAREEM KOROMA Page 08577 at 1423 All edits/amendments must be made on the electronic document DICTATION DATE: 05/16/191421 LEASE ADMINISTRATION SUPERVISOR: ANGELITO 05/16/191421 RPT#: [id number] DC DATE: STATUS: ADM IN [facility] [address] [place] [address] END OF REPORT
--- NOTE | 2019-05-16 17:02 | NUR ---
FSBS 112. NO INSULIN PER SLIDING SCALE.
--- NOTE | 2019-05-16 19:10 | NUR ---
BEDSIDE REPORT RECEIVED FROM DAY SHIFT, PT CARE ASSUMED. INTRODUCED SELF AND WROTE NAME ON BOARD. PT SITTING UP IN BED, WATCHING TV, AAOX4. DENIES ANY NEEDS AT THIS TIME. BED IN LOWEST POSITION, SR X2, CALL LIGHT WITHIN REACH. WILL CONTINUE TO MONITOR.
[2019-05-17] VITALS: BP 227/99
[2019-05-17 04:00] VITALS: BP 178/75
[2019-05-17 07:19] LABS: BASOPHILS 0.4 % (0-2); EOSINOPHILS 8.3 % (0-7); HEMATOCRIT 39.2 % (42.0-54.0); HEMOGLOBIN 12.8 g/dL (13.5-17.5); IMMATURE GRANULOCYTES 0.2 % (0-5); LYMPHOCYTES 30.5 % (15-50); MCH 31.2 pg (26.0-34.0); MCHC 32.7 g/dL (31.0-37.0); MCV 95.6 fL (80.0-100.0); MEAN PLATELET VOLUME 9.4 fL (7.4-10.4); MONOCYTES 7.8 % (2-11); NEUTROPHILS 52.8 % (40-80); PLATELET COUNT 126 10x3/uL (130-400); RDW 16.4 % (11.5-14.5); WBC 5.5 10x3/uL (4.8-10.8)
[2019-05-17 07:27] LABS: ANION GAP 16.8 mmol/L (8-16); CARBON DIOXIDE 26.3 mmol/L (21.0-32.0); CREATININE - SERUM 12.5 mg/dL (0.6-1.3); PHOSPHOROUS 3.4 mg/dL (2.5-4.9); POTASSIUM - SERUM 4.1 mmol/L (3.5-5.1)
--- NOTE | 2019-05-17 08:37 | PN ---
PATIENT:KAREEM KOROMA MEDICAL RECORD: [id number] [facility] ADMISSION DATE: 05/13/19 PROGRESS NOTE DATE OF SERVICE: 05/16/2019 SUBJECTIVE: The patient's case was discussed with staff. He has no new complaint. OBJECTIVE: The patient tells me that he does not want to go to the behavioral unit. He is actually oriented today and appears much more clear. He tells me that he has no thoughts of harming anyone including his . He says that when he is discharged from here, he would like to go home to be with his and that he hopes that the two of them can work things out. 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 PLAN: I do not think the patient is actually depressed, I had considered that yesterday. The patient is oriented, but that does not mean he has an absence of dementia, it simply means it is not advanced. I do think he has cognitive impairment. I am unsure about the nature of the home environment, but he is getting home health services, so if there is a serious lapse in how he is being cared for, it would be reported to the authorities and in addition to this he has to come to dialysis 3 times a week, so there are people checking on him. I think some of the symptoms that occurred were related to a delirium that is multifactorial. TRANSINT:[id number] Voice Confirmation ID: [id number] DOCUMENT ID: [id number] RAPHAEL HERNANDEZ MD at 0837 CC: [id number] DICTATION DATE: 05/16/19 1304 SAWMILL MANAGER: 05/16/19 1341 ADM IN [facility] [address] [id number]
[2019-05-17 09:37] VITALS: BP 168/75
--- NOTE | 2019-05-17 10:05 | NUR ---
PATIENT IS RESTING QUIETLY AT THIS TIME. DENIES ANY NEEDS AT THIS TIME.
--- NOTE | 2019-05-17 13:56 | NUR ---
PATIENT IS GOING DOWN TO DIALYSIS NOW.
[2019-05-17 14:05] VITALS: BP 177/71
--- NOTE | 2019-05-17 17:53 | NUR ---
PATIENT IS BACK FROM DIALYSIS. REMOVED 3 LITERS. HIS VITAL SIGNS BOA488/72 PULSE 68, RESPIRATIONS 16, TEMP 97.9. HE IS ALERT AND EATTING DINNER. MEDICATIONS GIVEN ORDERED AND BLOOD SUGAR TREATED. HE DENIES ANY OTHER NEEDS AT THIS ITUT.
--- NOTE | 2019-05-17 19:10 | NUR ---
BEDSIDE REPORT RECEIVED FROM DAY SHIFT, PT CARE ASSUMED. WROTE NAME ON BOARD. PT SITTING UP IN BED, WATCHING TV, AAOX4. DENIES PAIN OR ANY OTHER NEEDS AT THIS TIME. BED IN LOWEST POSITION, SR X2, CALL LIGHT WITHIN REACH. WILL CONTINUE TO MONITOR.
[2019-05-17 20:00] VITALS: BP 148/62
[2019-05-18] VITALS: BP 154/60
[2019-05-18 04:00] VITALS: BP 146/66
[2019-05-18 06:11] LABS: BASOPHILS 0.5 % (0-2); EOSINOPHILS 8.8 % (0-7); HEMATOCRIT 41.4 % (42.0-54.0); HEMOGLOBIN 13.4 g/dL (13.5-17.5); LYMPHOCYTES 41.6 % (15-50); MCH 30.9 pg (26.0-34.0); MCHC 32.4 g/dL (31.0-37.0); MCV 95.6 fL (80.0-100.0); MEAN PLATELET VOLUME 9.9 fL (7.4-10.4); MONOCYTES 8.8 % (2-11); NEUTROPHILS 40.3 % (40-80); PLATELET COUNT 117 10x3/uL (130-400); RBC 4.33 10x6/uL (4.20-6.10); RDW 15.7 % (11.5-14.5)
[2019-05-18 06:37] LABS: ANION GAP 14.5 mmol/L (8-16); CALCIUM 8.3 mg/dL (8.5-10.1); CARBON DIOXIDE 26.8 mmol/L (21.0-32.0); CREATININE - SERUM 9.8 mg/dL (0.6-1.3); PHOSPHOROUS 3.4 mg/dL (2.5-4.9); POTASSIUM - SERUM 4.3 mmol/L (3.5-5.1)
--- NOTE | 2019-05-18 07:24 | NUR ---
REPORT RECEIVED. WILL CONTINUE WITH POC. PT CURRENTLY LYING SEMI FOWLERS. CALL LIGHT W/I REACH. PT IS AAO AND UP WITH ASSIST. RR EVEN AND UNLABORED ON RA. R.SHOULDER PIV IS SALINE LOCKED. NO S/S OF DISTRESS NOTED. WILL CTM.
[2019-05-18 10:29] VITALS: BP 159/75
[2019-05-18 14:04] VITALS: BP 187/85
--- NOTE | 2019-05-18 14:52 | NUR ---
Nutrition Follow-up: Eating well. Reports eating most of breakfast this AM. Reports taking stool softener at home. Diet: Renal ADA PO intake: 75-100% No new wt - daily wts ordered Last BM: 05/18 Labs noted: K+ 4.3, Glu 116, Ca 8.3 Meds noted: Phoslo, Humalog -Continue current diet as tolerated. -May consider stool softener. -Need new wt. -RD following.
--- NOTE | 2019-05-18 15:36 | NUR ---
187/85 BLOOD PRESSURE RECORDED. ATTEMPTED TO TREAT PRESSURE WITH ORDERED DOSE OF CLONIDINE AND PT STATES "IM A ALEVISM, I DONT WANT ANYTHING FOR BLOOD PRESSURE." ATTEMPTED TO EDUCATE PT THAT BLOOD PRESSURE AND RECEIVING BLOOD PRODUCTS ARE TWO DIFFERENT THINGS AND HE CONTINUED TO REFUSE.
--- NOTE | 2019-05-18 16:03 | NUR ---
BP AT THIS TIME IS 216/105. PT REPEATEDLY CONTINUES TO REFUSE TO ALLOW FOR TREATMENT. HE IS NOW REFUSING ALL MEDICATIONS STATING "IM A SPIRITISM, I DONT WANT IT." CONTINUE TO ATTEMPT EDUCATING PATIENT ON IMPORTANCE OF THESE MEDICATIONS AND HE REPEATEDLY REFUSES. WILL CTM.
--- NOTE | 2019-05-18 16:08 | NUR ---
DISCUSSED WITH PT REGARDING HIGH BLOOD PRESSURE AND NEED TO GIVE MEDICATION TO LOWER IT. STATES HE DOES NOT WANT TO BECAUSE HE CANT TAKE ANY BLOOD. EXPLAINED THAT MEDICATION WAS NOT A BLOOD COMPONENT AND NOT INTERFERE WITH HINDUISM BELIEFS. STILL REFUSING MED.
--- NOTE | 2019-05-18 16:34 | MORECARE ---
CASE MANAGEMENT DISCHARGE SUMMARY PATIENT: KAREEM KOROMA UNIT: [id number] ADM DATE: 05/13/19 AGE: 78 : 42 SEX: M ROOM/BED: D.6392 AUTHOR: BLANCA SPRING PHYSICIAN: REFERRING PHYSICIAN: FREDY FARR MD DATE OF SERVICE: 05/18/19 Discharge Plan Patient Name: KAREEM KOROMA Facility: [facility]:[place] : 1940 Planned Disposition: Anticipated Discharge Date: Discharge Date: Expected LOS: Initial Reviewer: [email or web address] Initial Review Date: 05/16/2019 Generated: 05/18/19 5:34 pm DCP- Discharge Planning Updated by [email or web address]: Deb Perea on 05/16/19 1:[address] CM sent referral to [facility]. Most likely will not here anything until after holidays. CM will continue to follow and assist as needed with discharge planning / needs. DCP- Discharge Planning Updated by [id number]: Deb Perea on 05/16/19 12:[address] Patient Name: KAREEM KOROMA Admission Status: ER Accout number: [id number] Admission Date: 05-13-2019 : 1940 Admission Diagnosis: Attending: Fredy Farr Current LOS: 3 Anticipated DC Date: Planned Disposition: Primary Insurance: MEDICARE A & B Discharge Planning Comments: CM met with patient at bedside after explaining CM role and obtaining verbal consent. Patient lives at home with his Lesley where he is independent with his care. Patient states he would like to go to rehab at the [facility] ([facility]) Patient feels this would be a safe discharge. Patient states he has dialysis [facility] in [place] CM discussed availability / needs of home health and medical equipment. Patient signed NOEMÍ for [facility]. CM will continue to follow and assist as needed with discharge planning / needs. Spanish Moss Picker: Deb Perea DCPIA - Discharge Planning Initial Assessment Updated by [id number]: Tone Terry on 05/18/19 4:31 pm * Is the patient Alert and Oriented? Yes * How many steps to enter\exit or inside your home? * PCP JUAN * Pharmacy [facility] * Preadmission Environment Home with Family * ADLs Independent * Other Equipment WALKER, CANE * List name and contact numbers for known caregivers / representatives who currently or will assist patient after discharge: LESLEY KOROMA - - [phone]; [phone] RACHAEL KOROMA - BROTHER- [phone] * Verbal permission to speak to the caregivers and representatives has been obtained from the patient. Yes * Community resources currently utilized None * Please name any agencies selected above. [facility] [place] * Additional services required to return to the preadmission environment? No * Can the patient safely return to the preadmission environment? Yes * Has this patient been hospitalized within the prior 30 days at any hospital? No Coverage Notice Reviewer: [id number] Andrey Perea Notice Issued Date-Time: 05/16/2019 12:00 Notice Type: Patient Choice Letter Notice Delivered To: Patient Relationship to Patient: Self Game Designer Name: Delivery Method: HAND - Hand Delivered Aleida Days: Prior Verbal Notification: Recipient Understood Notice: Yes Recipient Signature: Yes Med Rec Note Co-signed by Attending: Coverage Notice Comment: Last DP export: 05/16/19 1:23 Patient Name: KAREEM KOROMA Page [id number] at 1634 All edits/amendments must be made on the electronic document DICTATION DATE: 05/18/19 163 EGG TRAYER: ANGELITO 05/18/19 1634 RPT#: [id number] DC DATE: STATUS: ADM IN [facility] [address] [place] [address] END OF REPORT
--- NOTE | 2019-05-18 16:44 | MORECARE ---
CASE MANAGEMENT DISCHARGE SUMMARY PATIENT: KAREEM KOROMA UNIT: [id number] ADM DATE: 05/13/19 AGE: 78 : 42 SEX: M ROOM/BED: D.9917 AUTHOR: BLANCA SPRING PHYSICIAN: REFERRING PHYSICIAN: FREDY FARR MD DATE OF SERVICE: 05/18/19 Discharge Plan Patient Name: KAREEM KOROMA Facility: [facility]:[place] : 1940 Planned Disposition: Anticipated Discharge Date: Discharge Date: Expected LOS: Initial Reviewer: [id number] Initial Review Date: 05/16/2019 Generated: 05/18/19 5:44 pm Comments DCP- Discharge Planning Updated by [id number]: Tone eTrry on 05/18/19 3:[address] Patient Name: KAREEM KOROMA Encounter No: [id number] : 1940 Primary Insurance: MEDICARE A & B Anticipated DC Date: Planned Disposition: External Planned Provider: [facility] DCP follow-up note: CM SPOKE TO PT IN ROOM, PT WILLING FOR REHAB AT [facility]. PT ASKED TO SPEAK TO HIS AND CANNOT MAKE LONG DISTANCE CALL FROM ROOM PHONE. PT VERIFIED HIS 'S NUMBER, . PT REPORTS DIALYSIS OF [facility] AT 0630AM IN [facility] AND HIS BROTHER DRIVES. IMPORTANT MESSAGE FROM MEDICARE PROVIDED AND EXPLAINED. CM CALLED AND DISCUSSED PT'S STATUS AND PENDING REFERRAL TO [facility]. PT'S REPORTS IT IS JUST HIS MIND AND SHE WILL CALL HIM. CM CALLED [facility], , WAS ADVISED THAT [facility] AND [facility] ARE BOTH OUT AND WAS ADVISED TO CALL BACK TOMORROW. CM FAXED UPDATE TO REFERRAL TO [facility] AT [phone]. CM LATER SPOKE TO PT IN ROOM WHO IS REFUSING MEDICATIONS. PT STATES HE IS JAHOVA WITNESS AND IT IS AGAINST HIS ANGLICAN FOR BLOOD. CM EXPLAINED THAT MEDICATIONS ARE NOT BLOOD. PT STATES IT IS NOW AGAINST HIS ANGLICAN TO TAKE MEDICINE BECAUSE HE IS TIRED OF ALL OF THIS AND IS STRUGGLING WITH THE DEVIL. PT STATES HE FEELS IT WILL NOT BE LONG NOW AND HE WILL BE GOING HOME TO [facility]. BEDSIDE NURSE NOTIFIED. CM WAITING ADMISSION DETERMINATION FROM [facility] IN [place]. Tone Terry, CASE MANAGEMENT DCP- Discharge Planning Updated by [id number]: Deb Perea on 05/16/19 1:[address] CM sent referral to [facility]. Most likely will not here anything until after holidays. CM will continue to follow and assist as needed with discharge planning / needs. DCP- Discharge Planning Updated by [email or web address]: Deb Perea on 05/16/19 12:[address] Patient Name: KAREEM KOROMA Admission Status: ER Accout number: [id number] Admission Date: 05-13-2019 : 1940 Admission Diagnosis: Attending: Fredy Farr Current LOS: 3 Anticipated DC Date: Planned Disposition: Primary Insurance: MEDICARE A & B Discharge Planning Comments: CM met with patient at bedside after explaining CM role and obtaining verbal consent. Patient lives at home with his Lesley where he is independent with his care. Patient states he would like to go to rehab at the senior living ([facility]) Patient feels this would be a safe discharge. Patient states he has dialysis [facility] in [place] CM discussed availability / needs of home health and medical equipment. Patient signed NOEMÍ for [facility]. CM will continue to follow and assist as needed with discharge planning / needs. Sole Layer Hand: Deb Perea DCPIA - Discharge Planning Initial Assessment Updated by [id number]: Tone Terry on 05/18/19 4:31 pm * Is the patient Alert and Oriented? Yes * How many steps to enter\exit or inside your home? * PCP JUAN * Pharmacy [facility] * Preadmission Environment Home with Family * ADLs Independent * Other Equipment WALKER, CANE * List name and contact numbers for known caregivers / representatives who currently or will assist patient after discharge: LESLEY KOROMA - - [phone]; [phone] RACHAEL KOROMA - BROTHER- [phone] * Verbal permission to speak to the caregivers and representatives has been obtained from the patient. Yes * Community resources currently utilized None * Please name any agencies selected above. [facility] [place] * Additional services required to return to the preadmission environment? No * Can the patient safely return to the preadmission environment? Yes * Has this patient been hospitalized within the prior 30 days at any hospital? No Coverage Notice Reviewer: [id number] Andrey Perea Notice Issued Date-Time: 05/16/2019 12:00 Notice Type: Patient Choice Letter Notice Delivered To: Patient Relationship to Patient: Self Suture Winder Hand Name: Delivery Method: HAND - Hand Delivered Aleida Days: Prior Verbal Notification: Recipient Understood Notice: Yes Recipient Signature: Yes Med Rec Note Co-signed by Attending: Coverage Notice Comment: Reviewer: [id number] - Tone Terry Notice Issued Date-Time: 05/18/2019 9:20 Notice Type: IM Discharge Notice Notice Delivered To: Patient Relationship to Patient: Suture Winder Hand Name: Delivery Method: HAND - Hand Delivered Aleida Days: Prior Verbal Notification: Recipient Understood Notice: Yes Recipient Signature: Yes Med Rec Note Co-signed by Attending: Coverage Notice Comment: Last DP export: 05/18/19 3:34 Patient Name: KAREEM KOROMA Page 06969 at 1644 All edits/amendments must be made on the electronic document DICTATION DATE: 05/18/191643 MARKETING OPERATIONS INTERN: ANGELITO 05/18/191643 RPT#: [id number] DC DATE: STATUS: ADM IN [facility] [address] [place] [address] END OF REPORT
--- NOTE | 2019-05-18 17:24 | NUR ---
I have reviewed this patient and I concur with the Shift Assessment completed by the Licensed Practical Nurse today this shift.
--- NOTE | 2019-05-18 19:33 | NUR ---
EVENING ROUNDS COMPLETED. ALERT/CONFUSED. RECIEVED REPORT THAT PT IS REFUSING HIS MEDS INCLUDING HIS BP MEDS. ON ASSESSMENT PT STATES HE IS DRUZE, AND BP MEDICINE IS RELATED TO BLOOD AND HIS JEHOVAH'S WITNESS WOULD NOT ALLOW HIM TO TAKE BP MEDICATIONS. I HAVE EDUCATED PT ON THE NEED TO BE ON HIS BP MEDS SINCE HIS SBD STAYS IN THE 200'S. BUT PT WILL NOT COMPLY AT THIS TIME. PT STATES HE ALSO CAN NOT KEEP ANYTHING "DOWN." BUT DENIES NAUSEA. PT DENIES ANY FURTHER NEEDS AT THIS TIME. WILL CPOC. CL WITHIN REACH, BED IN LOWEST POSITION, SR UP X2.
[2019-05-18 20:30] VITALS: BP 217/103
--- NOTE | 2019-05-18 21:35 | NUR ---
AFTER NEMEROUS PT EDUCATION ABOUT BP MEDICINE AND ASSERTING THAT BP MEDICINE IS NOT A BLOOD COMPONENT. PT ACCEPTED TO TAKE ALL HIS BP MEDICINE AT THIS TIME.
[2019-05-19 00:30] VITALS: BP 217/91
--- NOTE | 2019-05-19 01:31 | NUR ---
BP 217/91 IV PRN HYDRALAZINE GIVEN ORDERED.
--- NOTE | 2019-05-19 02:01 | NUR ---
RECHECKED BP NOW 216/92. BP DOES NOT SEEM TO HAVE IMPROVED WITH HYDRALAZINE. WILL ADMINISTER CLONIDINE ORDERED.
--- NOTE | 2019-05-19 02:51 | NUR ---
CLONIDINE GIVEN. ALTHOUGH SBP IS STILL IN THE 200'S. PT STATES THIS IS THE LAST BP MEDS HE IS GOING TO TAKE. HE STATES "I BELIEVE GOD DOES NOT WANT ME TO GET BETTER, I AM RELIGION AND IF GOD DOES NOT HEAL ME, THEN THESE MEDS CAN NOT." I HAVE EDUCATE THE PT ABOUT THE RISKS ASSOCIATED WITH NOT TAKING HIS MEDS. HE STATES HE UNDERSTANDS BUT HE WILL NOT TAKE IT.
[2019-05-19 03:06] LABS: ALP - ISO (ALP) 126 IU/L (39-117); ALP - ISO (BONE) FRACTION 54 % (12-68); ALP - ISO (LIVER) FRACTION 43 % (13-88); ALP - ISO(INTESTINAL) FRACTION 3 % (0-18)
--- NOTE | 2019-05-19 04:51 | NUR ---
PT REFUSED HIS BP TO BE CHECKED BY MICROSTRATEGY DEVELOPER. HE STATES HE IS FINE.
--- NOTE | 2019-05-19 05:21 | NUR ---
PT REFUSED AM LAB DRAWS. PT IS ALERT AND ORIENTATED X3.
--- NOTE | 2019-05-19 08:27 | NUR ---
WHEN ASKED IF PT WOULD LIKE TO TAKE AM MEDICATIONS HE STATES "NOT FOR YOU, I WONT TAKE ANYTHING, THEY ARE JUST MAKING ME WORSE. GOD IS DONE WITH ME." WILL NOTIFY PHYSICIAN. WILL CTM.
[2019-05-19 10:13] VITALS: BP 201/92
--- NOTE | 2019-05-19 12:05 | MORECARE ---
CASE MANAGEMENT DISCHARGE SUMMARY PATIENT: KAREEM KOROMA UNIT: [id number] ADM DATE: 05/13/19 AGE: 78 : 42 SEX: M ROOM/BED: D.4596 AUTHOR: BLANCA SPRING PHYSICIAN: REFERRING PHYSICIAN: FREDY FARR MD DATE OF SERVICE: 05/19/19 Discharge Plan Patient Name: KAREEM KOROMA Facility: [facility]:[place] : 1940 Planned Disposition: Anticipated Discharge Date: Discharge Date: Expected LOS: Initial Reviewer: [id number] Initial Review Date: 05/16/2019 Generated: 05/19/19 1:05 pm Comments DCP- Discharge Planning Updated by [id number]: Tone Terry on 05/18/19 3:[address] Patient Name: KAREEM KOROMA Encounter No: [id number] : 1940 Primary Insurance: MEDICARE A & B Anticipated DC Date: Planned Disposition: External Planned Provider: [facility] DCP follow-up note: CM SPOKE TO PT IN ROOM, PT WILLING FOR REHAB AT [facility]. PT ASKED TO SPEAK TO HIS AND CANNOT MAKE LONG DISTANCE CALL FROM ROOM PHONE. PT VERIFIED HIS 'S NUMBER, . PT REPORTS DIALYSIS OF TTS AT 0630AM IN [facility] AND HIS BROTHER DRIVES. IMPORTANT MESSAGE FROM MEDICARE PROVIDED AND EXPLAINED. CM CALLED AND DISCUSSED PT'S STATUS AND PENDING REFERRAL TO [facility]. PT'S REPORTS IT IS JUST HIS MIND AND SHE WILL CALL HIM. CM CALLED [facility], , WAS ADVISED THAT [facility] AND [facility] ARE BOTH OUT AND WAS ADVISED TO CALL BACK TOMORROW. CM FAXED UPDATE TO REFERRAL TO [facility] AT [phone]. CM LATER SPOKE TO PT IN ROOM WHO IS REFUSING MEDICATIONS. PT STATES HE IS JAHOVA WITNESS AND IT IS AGAINST HIS CONFUCIANISM FOR BLOOD. CM EXPLAINED THAT MEDICATIONS ARE NOT BLOOD. PT STATES IT IS NOW AGAINST HIS CONFUCIANISM TO TAKE MEDICINE BECAUSE HE IS TIRED OF ALL OF THIS AND IS STRUGGLING WITH THE DEVIL. PT STATES HE FEELS IT WILL NOT BE LONG NOW AND HE WILL BE GOING HOME TO [facility]. BEDSIDE NURSE NOTIFIED. CM WAITING ADMISSION DETERMINATION FROM [facility] IN [place]. Tone Terry, CASE MANAGEMENT DCP- Discharge Planning Updated by [id number]: Deb Perea on 05/16/19 1:[address] CM sent referral to [facility]. Most likely will not here anything until after holidays. CM will continue to follow and assist as needed with discharge planning / needs. DCP- Discharge Planning Updated by [id number]: Deb Perea on 05/16/19 12:[address] Patient Name: KAREEM KOROMA Admission Status: ER Accout number: [id number] Admission Date: 05-13-2019 : 1940 Admission Diagnosis: Attending: Fredy Farr Current LOS: 3 Anticipated DC Date: Planned Disposition: Primary Insurance: MEDICARE A & B Discharge Planning Comments: CM met with patient at bedside after explaining CM role and obtaining verbal consent. Patient lives at home with his Lesley where he is independent with his care. Patient states he would like to go to rehab at the care home ([facility]) Patient feels this would be a safe discharge. Patient states he has dialysis [facility] in [place] CM discussed availability / needs of home health and medical equipment. Patient signed NOEMÍ for [facility]. CM will continue to follow and assist as needed with discharge planning / needs. Lay Midwife: Deb Perea DCPIA - Discharge Planning Initial Assessment Updated by [id number]: Tone Terry on 05/18/19 4:31 pm * Is the patient Alert and Oriented? Yes * How many steps to enter\exit or inside your home? * PCP JUAN * Pharmacy [facility] * Preadmission Environment Home with Family * ADLs Independent * Other Equipment WALKER, CANE * List name and contact numbers for known caregivers / representatives who currently or will assist patient after discharge: LESLEY KOROMA - - [phone]; [phone] RACHAEL KOROMA - BROTHER- [phone] * Verbal permission to speak to the caregivers and representatives has been obtained from the patient. Yes * Community resources currently utilized None * Please name any agencies selected above. [facility] - [facility] [place] * Additional services required to return to the preadmission environment? No * Can the patient safely return to the preadmission environment? Yes * Has this patient been hospitalized within the prior 30 days at any hospital? No External Providers External Provider: [facility] Next Contact Date: 05/19/2019 Service Request Date: Service Type: Resolution: Reviewer: Comments: External Provider: TAYO Santana Next Contact Date: 05/19/2019 Service Request Date: Service Type: Resolution: Reviewer: Comments: Coverage Notice Reviewer: [id number] Andrey Perea Notice Issued Date-Time: 05/16/2019 12:00 Notice Type: Patient Choice Letter Notice Delivered To: Patient Relationship to Patient: Self Airport Manager Name: Delivery Method: HAND - Hand Delivered Aleida Days: Prior Verbal Notification: Recipient Understood Notice: Yes Recipient Signature: Yes Med Rec Note Co-signed by Attending: Coverage Notice Comment: Reviewer: [id number] Andrey Terry Notice Issued Date-Time: 05/18/2019 9:20 Notice Type: IM Discharge Notice Notice Delivered To: Patient Relationship to Patient: Airport Manager Name: Delivery Method: HAND - Hand Delivered Aleida Days: Prior Verbal Notification: Recipient Understood Notice: Yes Recipient Signature: Yes Med Rec Note Co-signed by Attending: Coverage Notice Comment: Last DP export: 05/18/19 3:44 Patient Name: KAREEM KOROMA Page [id number] at 1205 All edits/amendments must be made on the electronic document DICTATION DATE: 05/19/19 1205 INTERNAL COMMUNICATIONS MANAGER: ANGELITO 05/19/19 1205 RPT#: [id number] DC DATE: STATUS: ADM IN [facility] [address] [place] [address] END OF REPORT
--- NOTE | 2019-05-19 12:20 | MORECARE ---
CASE MANAGEMENT DISCHARGE SUMMARY PATIENT: KAREEM KOROMA UNIT: [id number] ADM DATE: 05/13/19 AGE: 78 : 42 SEX: M ROOM/BED: D.0209 AUTHOR: CLEMENTINEDOC PHYSICIAN: REFERRING PHYSICIAN: FREDY FARR MD DATE OF SERVICE: 05/19/19 Discharge Plan Patient Name: KAREEM KOROMA Facility: [facility]:[place] : 1940 Planned Disposition: Senior Living Facility Anticipated Discharge Date: 05/19/19 Discharge Date: Expected LOS: 6 Initial Reviewer: [id number] Initial Review Date: 05/16/2019 Generated: 05/19/19 1:20 pm Comments DCP- Discharge Planning Updated by [id number]: Tone Terry on 05/19/19 11:[address] Patient Name: KAREEM KOROMA Encounter No: [id number] : 1940 Primary Insurance: MEDICARE A & B Anticipated DC Date: 05-19-2019 Planned Disposition: Senior Living Facility External Planned Provider: [facility], [facility] B[facility] DCP follow-up note: CM RECEIVED CALL FROM HOWIE OF [facility], THEY NEED A EDILSON ASSESSMENT ON PT AND WILL NOT ACCEPT ON [facility]. [facility] IF CLEARED BY EDILSON AND NOT ON [facility]OL. CM NOTIFIED [facility]. CM COMPLETED EDILSON WITH PT'S ASSISTANCE. PT IN AGREEMENT WITH [facility]AB [facility]. CM ATTEMPTED TO CALL PT'S , , THE NUMBER WAS NOT IN SERVICE. CM CALLED PT'S BROTHER, RACHAEL, , LEFT MESSAGE ASKING FOR RETURN CALL. CM FAXED SIGNED EDILSON SCREENING AND SUPPORTING DOCUMENTS TO [facility] AT [phone]. CM FAXED DISCHARGE INFORMATION TO [facility] AT [phone] CM WAITING EDILSON SCREENING AND CLEARANCE TO ENTER [facility]; WHEN RECEIVED, NOTIFY HOWIE AT [facility] AT [phone]. FOR DISCHARGE, NURSE REPORT TO BE CALLED TO [facility], . [facility] TO [facility] TRANSPORTATION. Tone Terry, CASE MANGEMENT DCP- Discharge Planning Updated by [id number]: Tone Terry on 05/18/19 3:[address] Patient Name: KAREEM KOROMA Encounter No: [id number] : 1940 Primary Insurance: MEDICARE A & B Anticipated DC Date: Planned Disposition: External Planned Provider: [facility], [facility]IC[facility] B[facility] DCP follow-up note: CM SPOKE TO PT IN ROOM, PT WILLING FOR REHAB AT [facility]. PT ASKED TO SPEAK TO HIS AND CANNOT MAKE LONG DISTANCE CALL FROM ROOM PHONE. PT VERIFIED HIS 'S NUMBER, . PT REPORTS DIALYSIS OF TTS AT 0630AM IN [facility] AND HIS BROTHER DRIVES. IMPORTANT MESSAGE FROM MEDICARE PROVIDED AND EXPLAINED. CM CALLED AND DISCUSSED PT'S STATUS AND [facility]ING [facility]AL [facility]. PT'S REPORTS IT IS JUST HIS MIND AND SHE WILL CALL HIM. CM CALLED [facility], , WAS ADVISED THAT [facility] AND [facility] ARE BOTH OUT AND WAS ADVISED TO CALL BACK TOMORROW. CM FAXED UPDATE TO REFERRAL TO [facility] AT [phone]. CM LATER SPOKE TO PT IN ROOM WHO IS REFUSING MEDICATIONS. PT STATES HE IS JAHOVA WITNESS AND IT IS AGAINST HIS PENTECOSTALISM FOR BLOOD. CM EXPLAINED THAT MEDICATIONS ARE NOT BLOOD. PT STATES IT IS NOW AGAINST HIS PENTECOSTALISM TO TAKE MEDICINE BECAUSE HE IS TIRED OF ALL OF THIS AND IS STRUGGLING WITH THE DEVIL. PT STATES HE FEELS IT WILL NOT BE LONG NOW AND HE WILL BE GOING HOME TO [facility]. BEDSIDE NURSE NOTIFIED. CM WAITING ADMISSION DETERMINATION FROM [facility] IN [place]. Tone Terry, CASE MANAGEMENT DCP- Discharge Planning Updated by [id number]: Deb Perea on 05/16/19 1:[address] CM sent referral to [facility]. Most likely will not here anything until after holidays. CM will continue to follow and assist as needed with discharge planning / needs. DCP- Discharge Planning Updated by [id number]: Deb Perea on 05/16/19 12:[address] Patient Name: KAREEM KOROMA Admission Status: ER Accout number: [id number] Admission Date: 05-13-2019 : 1940 Admission Diagnosis: Attending: Fredy Farr Current LOS: 3 Anticipated DC Date: Planned Disposition: Primary Insurance: MEDICARE A & B Discharge Planning Comments: CM met with patient at bedside after explaining CM role and obtaining verbal consent. Patient lives at home with his Lesley where he is independent with his care. Patient states he would like to go to rehab at the [facility] ([facility]) Patient feels this would be a safe discharge. Patient states he has dialysis [facility] in [place] CM discussed availability / needs of home health and medical equipment. Patient signed NOEMÍ for [facility]. CM will continue to follow and assist as needed with discharge planning / needs. Electrical Engineering Drafting Officer: Deb Perea DCPIA - Discharge Planning Initial Assessment Updated by [id number]: Tone Terry on 05/18/19 4:31 pm * Is the patient Alert and Oriented? Yes * How many steps to enter\exit or inside your home? * PCP JUAN * Pharmacy [facility] * Preadmission Environment Home with Family * ADLs Independent * Other Equipment WALKER, CANE * List name and contact numbers for known caregivers / representatives who currently or will assist patient after discharge: LESLEY KOROMA - - [phone]; [phone] RACHAEL KOROMA - BROTHER- [phone] * Verbal permission to speak to the caregivers and representatives has been obtained from the patient. Yes * Community resources currently utilized None * Please name any agencies selected above. [facility] [place] * Additional services required to return to the preadmission environment? No * Can the patient safely return to the preadmission environment? Yes * Has this patient been hospitalized within the prior 30 days at any hospital? No Coverage Notice Reviewer: [id number] Andrey Perea Notice Issued Date-Time: 05/16/2019 12:00 Notice Type: Patient Choice Letter Notice Delivered To: Patient Relationship to Patient: Self Project Director Name: Delivery Method: HAND - Hand Delivered Aleida Days: Prior Verbal Notification: Recipient Understood Notice: Yes Recipient Signature: Yes Med Rec Note Co-signed by Attending: Coverage Notice Comment: Reviewer: [id number] - Tone Terry Notice Issued Date-Time: 05/18/2019 9:20 Notice Type: IM Discharge Notice Notice Delivered To: Patient Relationship to Patient: Project Director Name: Delivery Method: HAND - Hand Delivered Aleida Days: Prior Verbal Notification: Recipient Understood Notice: Yes Recipient Signature: Yes Med Rec Note Co-signed by Attending: Coverage Notice Comment: Last DP export: 05/19/19 11:05 Patient Name: KAREEM KOROMA Page [id number] at 1220 All edits/amendments must be made on the electronic document DICTATION DATE: 05/19/19 122 CIGAR BRANDER: ANGELITO 05/19/19 1220 RPT#: [id number] DC DATE: STATUS: ADM IN [facility] [address] [place] [address] END OF REPORT
--- NOTE | 2019-05-19 13:26 | NUR ---
I have reviewed this patient and I concur with the Shift Assessment completed by the Licensed Practical Nurse today this shift.
[2019-05-19 14:25] VITALS: BP 173/81
[2019-05-19] MEDS ORDERED: CARDURA2 MG PO (15:21)
[2019-05-19] MEDS ORDERED: APIDRA SOL100 UNIT/1 SQ (15:22)
--- NOTE | 2019-05-19 15:38 | MORECARE ---
CASE MANAGEMENT DISCHARGE SUMMARY PATIENT: KAREEM KOROMA UNIT: [id number] ADM DATE: 05/13/19 AGE: 78 : 42 SEX: M ROOM/BED: D.9664 AUTHOR: CLEMENTINEDOC PHYSICIAN: REFERRING PHYSICIAN: FREDY FARR MD DATE OF SERVICE: 05/19/19 Discharge Plan Patient Name: KAREEM KOROMA Facility: [facility]:[place] : 1940 Planned Disposition: Group Home Facility Anticipated Discharge Date: 05/19/19 Discharge Date: Expected LOS: 6 Initial Reviewer: [id number] Initial Review Date: 05/16/2019 Generated: 05/19/19 4:38 pm Comments DCP- Discharge Planning Updated by [id number]: Tone Terry on 05/19/19 2:[address] Patient Name: KAREEM KOROMA Encounter No: [id number] : 1940 Primary Insurance: MEDICARE A & B Anticipated DC Date: 05-19-2019 Planned Disposition: Group Home Facility External Planned Provider: [facility], [facility] B[facility] DCP follow-up note: CM RECEIVED CALL FROM HOWIE OF [facility], THEY NEED A EDILSON ASSESSMENT ON PT AND WILL NOT ACCEPT ON RESPIRDOL. [facility] WILL ACCEPT TODAY IF CLEARED BY EDILSON AND NOT ON RESPIRDOL. CM NOTIFIED [facility]. CM COMPLETED EDILSON WITH PT'S ASSISTANCE. PT IN AGREEMENT WITH REHAB AT [facility]. CM ATTEMPTED TO CALL PT'S , , THE NUMBER WAS NOT IN SERVICE. CM CALLED PT'S BROTHER, RACHAEL, , LEFT MESSAGE ASKING FOR RETURN CALL. CM FAXED SIGNED EDILSON SCREENING AND SUPPORTING DOCUMENTS TO [facility] AT [phone]. CM FAXED DISCHARGE INFORMATION TO [facility] AT [phone] CM WAITING EDILSON SCREENING AND CLEARANCE TO ENTER [facility]; WHEN RECEIVED, NOTIFY HOWIE AT [facility] AT [phone]. FOR DISCHARGE, NURSE REPORT TO BE CALLED TO [facility], . [facility] TO ARRANGE VAN TRANSPORTATION. Tone Terry, CASE MANGEMENT Appended by Tone Terry on 05/19/2019 15:30 PLATING AND POINT ASSEMBLY SUPERVISOR: CM RECEIVED EDILSON SCREENING AND CLEARANCE TO ENTER [facility]; CM NOTIFY HOWIE AT [facility] AT [phone]. [facility] SENDING TRANSPORT TO COMPARISON SHOPPER. CM FAXED EDILSON EXEMPT LETTER AND DISCHARGE INFORMATION TO [facility] AT [phone]. PERSONAL DEVELOPMENT EDUCATOR NURSE NOTIFIED. NURSE REPORT TO BE CALLED TO [facility], . [facility] TO ARRANGE VAN TRANSPORTATION. Tone Mara, CASE MANGEMENT DCP- Discharge Planning Updated by [id number]: Tone Terry on 05/18/19 3:[address] Patient Name: KAREEM KOROMA Encounter No: [id number] : 1940 Primary Insurance: MEDICARE A & B Anticipated DC Date: Planned Disposition: External Planned Provider: [facility], MEDICARE REHAB BED DCP follow-up note: CM SPOKE TO PT IN ROOM, PT WILLING FOR REHAB AT [facility]. PT ASKED TO SPEAK TO HIS AND CANNOT MAKE LONG DISTANCE CALL FROM ROOM PHONE. PT VERIFIED HIS 'S NUMBER, . PT REPORTS DIALYSIS OF TTS AT 0630AM IN [facility] AND HIS BROTHER DRIVES. IMPORTANT MESSAGE FROM MEDICARE PROVIDED AND EXPLAINED. CM CALLED AND DISCUSSED PT'S STATUS AND PENDING REFERRAL TO [facility]. PT'S REPORTS IT IS JUST HIS MIND AND SHE WILL CALL HIM. CM CALLED [facility], , WAS ADVISED THAT CAROLYN AND J[facility]SELIN ARE BOTH OUT AND WAS ADVISED TO CALL BACK TOMORROW. CM FAXED UPDATE TO REFERRAL TO [facility] AT [phone]. CM LATER SPOKE TO PT IN ROOM WHO IS REFUSING MEDICATIONS. PT STATES HE IS JAHOVA WITNESS AND IT IS AGAINST HIS JUDAISM FOR BLOOD. CM EXPLAINED THAT MEDICATIONS ARE NOT BLOOD. PT STATES IT IS NOW AGAINST HIS JUDAISM TO TAKE MEDICINE BECAUSE HE IS TIRED OF ALL OF THIS AND IS STRUGGLING WITH THE DEVIL. PT STATES HE FEELS IT WILL NOT BE LONG NOW AND HE WILL BE GOING HOME TO [facility]. BEDSIDE NURSE NOTIFIED. CM WAITING ADMISSION DETERMINATION FROM [facility] IN [place]. Tone Terry, CASE MANAGEMENT DCP- Discharge Planning Updated by [id number]: Deb Brit on 05/16/19 1:[address] CM sent referral to [facility]. Most likely will not here anything until after holidays. CM will continue to follow and assist as needed with discharge planning / needs. DCP- Discharge Planning Updated by [id number]: Deb Guadarramar on 05/16/19 12:[address] Patient Name: KAREEM KOROMA Admission Status: ER Accout number: [id number] Admission Date: 05-13-2019 : 1940 Admission Diagnosis: Attending: Fredy Farr Current LOS: 3 Anticipated DC Date: Planned Disposition: Primary Insurance: MEDICARE A & B Discharge Planning Comments: CM met with patient at bedside after explaining CM role and obtaining verbal consent. Patient lives at home with his Lesley where he is independent with his care. Patient states he would like to go to rehab at the [facility] ([facility]) Patient feels this would be a safe discharge. Patient states he has dialysis [facility] in [place] CM discussed availability / needs of home health and medical equipment. Patient signed NOEMÍ for [facility]. CM will continue to follow and assist as needed with discharge planning / needs. Machinist Class B: Deb Perea DCPIA - Discharge Planning Initial Assessment Updated by [id number]: Tone Terry on 05/18/19 4:31 pm * Is the patient Alert and Oriented? Yes * How many steps to enter\exit or inside your home? * PCP JUAN * Pharmacy [facility] * Preadmission Environment Home with Family * ADLs Independent * Other Equipment WALKER, CANE * List name and contact numbers for known caregivers / representatives who currently or will assist patient after discharge: LESLEY KOROMA - - [phone]; [phone] RACHAEL KOROMA - BROTHER- [phone] * Verbal permission to speak to the caregivers and representatives has been obtained from the patient. Yes * Community resources currently utilized None * Please name any agencies selected above. [facility] - [facility] [place] * Additional services required to return to the preadmission environment? No * Can the patient safely return to the preadmission environment? Yes * Has this patient been hospitalized within the prior 30 days at any hospital? No Coverage Notice Reviewer: [id number] Andrey Perea Notice Issued Date-Time: 05/16/2019 12:00 Notice Type: Patient Choice Letter Notice Delivered To: Patient Relationship to Patient: Self Supervisor Food Checkers And Cashiers Name: Delivery Method: HAND - Hand Delivered Aleida Days: Prior Verbal Notification: Recipient Understood Notice: Yes Recipient Signature: Yes Med Rec Note Co-signed by Attending: Coverage Notice Comment: Reviewer: [id number] - Tone Terry Notice Issued Date-Time: 05/18/2019 9:20 Notice Type: IM Discharge Notice Notice Delivered To: Patient Relationship to Patient: Supervisor Food Checkers And Cashiers Name: Delivery Method: HAND - Hand Delivered Aleida Days: Prior Verbal Notification: Recipient Understood Notice: Yes Recipient Signature: Yes Med Rec Note Co-signed by Attending: Coverage Notice Comment: Last DP export: 05/19/19 11:20 Patient Name: KAREEM KOROMA Page [id number] at 1538 All edits/amendments must be made on the electronic document DICTATION DATE: 05/19/19 1538 WOOD MECHANIST: ANGELITO 05/19/19 1538 RPT#: [id number] DC DATE: STATUS: ADM IN [facility] [address] [place] [address] END OF REPORT
--- NOTE | 2019-05-19 16:25 | NUR ---
PT DISCHARGED BACK TO REHAB. PIV REMOVED WITH CATHETER TIP FULLY INTACT. TELEMETRY REMOVED AND RETURNED. PT SIGNED PROPER DISCHARGE INSTRUCTIONS AND REMOVED ALL VALUABLES FROM THE ROOM.
--- NOTE | 2019-05-19 16:39 | MORECARE ---
CASE MANAGEMENT DISCHARGE SUMMARY PATIENT: KAREEM KOROMA UNIT: [id number] ADM DATE: 05/13/19 AGE: 78 : 42 SEX: M ROOM/BED: D.7134 AUTHOR: BLANCA SPRING PHYSICIAN: REFERRING PHYSICIAN: FREDY FARR MD DATE OF SERVICE: 05/19/19 Discharge Plan Patient Name: KAREEM KOROMA Facility: [facility]:[place] : 1940 Planned Disposition: Alf Facility Anticipated Discharge Date: 05/19/19 Discharge Date: 05/19/2019 Expected LOS: 6 Initial Reviewer: [email or web address] Initial Review Date: 05/16/2019 Generated: 05/19/19 5:39 pm Comments DCP- Discharge Planning Updated by [email or web address]: Tone Terry on 05/19/19 2:[address] Patient Name: KAREEM KOROMA Encounter No: [id number] : 1940 Primary Insurance: MEDICARE A & B Anticipated DC Date: 05-19-2019 Planned Disposition: Alf Facility External Planned Provider: [facility], MEDICARE REHAB BED DCP follow-up note: CM RECEIVED CALL FROM HOWIE OF [facility], THEY NEED A EDILSON ASSESSMENT ON PT AND WILL NOT ACCEPT ON RESPIRDOL. [facility] WILL ACCEPT TODAY IF CLEARED BY EDILSON AND NOT ON RESPIRDOL. CM NOTIFIED [place] [facility]. CM COMPLETED EDILSON WITH PT'S ASSISTANCE. PT IN AGREEMENT WITH REHAB AT [facility]. CM ATTEMPTED TO CALL PT'S , , THE NUMBER WAS NOT IN SERVICE. CM CALLED PT'S BROTHER, RACHAEL, , LEFT MESSAGE ASKING FOR RETURN CALL. CM FAXED SIGNED EDILSON SCREENING AND SUPPORTING DOCUMENTS TO [employer] AT [phone]. CM FAXED DISCHARGE INFORMATION TO [facility] AT [phone] CM WAITING EDILSON SCREENING AND CLEARANCE TO ENTER [facility]; WHEN RECEIVED, NOTIFY HOWIE AT [facility] AT [phone]. FOR DISCHARGE, NURSE REPORT TO BE CALLED TO [facility], . [facility] TO ARRANGE VAN TRANSPORTATION. Tone Terry, CASE MANGEMENT Appended by Tone Terry on 05/19/2019 15:30 ELECTRONIC PREPRESS TECHNICIAN: CM RECEIVED EDILSON SCREENING AND CLEARANCE TO ENTER [facility]; CM NOTIFY HOWIE AT [facility] AT [phone]. [facility] SENDING TRANSPORT TO BREAKDOWN MAN. CM FAXED EDILSON EXEMPT LETTER AND DISCHARGE INFORMATION TO [facility] AT [phone]. HAIR BALER NURSE NOTIFIED. NURSE REPORT TO BE CALLED TO [facility], . [facility] TO ARRANGE VAN TRANSPORTATION. Tone Terry, CASE MANGEMENT DCP- Discharge Planning Updated by [id number]: Tone Terry on 05/18/19 3:[address] Patient Name: KAREEM KOROMA Encounter No: [id number] : 1940 Primary Insurance: MEDICARE A & B Anticipated DC Date: Planned Disposition: External Planned Provider: [facility], MEDICARE REHAB BED DCP follow-up note: CM SPOKE TO PT IN ROOM, PT WILLING FOR REHAB AT [facility]. PT ASKED TO SPEAK TO HIS AND CANNOT MAKE LONG DISTANCE CALL FROM ROOM PHONE. PT VERIFIED HIS 'S NUMBER, . PT REPORTS DIALYSIS OF TTS AT 0630AM IN [facility] AND HIS BROTHER DRIVES. IMPORTANT MESSAGE FROM MEDICARE PROVIDED AND EXPLAINED. CM CALLED AND DISCUSSED PT'S STATUS AND PENDING REFERRAL TO [facility]. PT'S REPORTS IT IS JUST HIS MIND AND SHE WILL CALL HIM. CM CALLED [facility], , WAS ADVISED THAT CAROLYN AND JOSSELIN ARE BOTH OUT AND WAS ADVISED TO CALL BACK TOMORROW. CM FAXED UPDATE TO REFERRAL TO [facility] AT [phone]. CM LATER SPOKE TO PT IN ROOM WHO IS REFUSING MEDICATIONS. PT STATES HE IS JAHOVA WITNESS AND IT IS AGAINST HIS ORIENTAL ORTHODOX FOR BLOOD. CM EXPLAINED THAT MEDICATIONS ARE NOT BLOOD. PT STATES IT IS NOW AGAINST HIS ORIENTAL ORTHODOX TO TAKE MEDICINE BECAUSE HE IS TIRED OF ALL OF THIS AND IS STRUGGLING WITH THE DEVIL. PT STATES HE FEELS IT WILL NOT BE LONG NOW AND HE WILL BE GOING HOME TO [facility]. BEDSIDE NURSE NOTIFIED. CM WAITING ADMISSION DETERMINATION FROM [facility] IN [place]. Tone Terry, CASE MANAGEMENT DCP- Discharge Planning Updated by [email or web address]: Deb Perea on 05/16/19 1:[address] CM sent referral to [facility]. Most likely will not here anything until after holidays. CM will continue to follow and assist as needed with discharge planning / needs. DCP- Discharge Planning Updated by [id number]: Deb Guadarramar on 05/16/19 12:[address] Patient Name: KAREEM KOROMA Admission Status: ER Accout number: [id number] Admission Date: 05-13-2019 : 1940 Admission Diagnosis: Attending: Fredy Farr Current LOS: 3 Anticipated DC Date: Planned Disposition: Primary Insurance: MEDICARE A & B Discharge Planning Comments: CM met with patient at bedside after explaining CM role and obtaining verbal consent. Patient lives at home with his Lesley where he is independent with his care. Patient states he would like to go to rehab at the assisted ([facility]) Patient feels this would be a safe discharge. Patient states he has dialysis [facility] in [place] CM discussed availability / needs of home health and medical equipment. Patient signed NOEMÍ for [facility]. CM will continue to follow and assist as needed with discharge planning / needs. Recruiting Specialist: Deb Perea DCPIA - Discharge Planning Initial Assessment Updated by [email or web address]: Tone Terry on 05/18/19 4:31 pm * Is the patient Alert and Oriented? Yes * How many steps to enter\exit or inside your home? * PCP JUAN * Pharmacy [facility] * Preadmission Environment Home with Family * ADLs Independent * Other Equipment WALKER, CANE * List name and contact numbers for known caregivers / representatives who currently or will assist patient after discharge: LESLEY KOROMA - - [phone]; [phone] RACHAEL KOROMA - BROTHER- [phone] * Verbal permission to speak to the caregivers and representatives has been obtained from the patient. Yes * Community resources currently utilized None * Please name any agencies selected above. HEMODIALYSIS - [facility] [place] * Additional services required to return to the preadmission environment? No * Can the patient safely return to the preadmission environment? Yes * Has this patient been hospitalized within the prior 30 days at any hospital? No Coverage Notice Reviewer: [id number] Andrey Perea Notice Issued Date-Time: 05/16/2019 12:00 Notice Type: Patient Choice Letter Notice Delivered To: Patient Relationship to Patient: Self Primer Boxer Name: Delivery Method: HAND - Hand Delivered Aleida Days: Prior Verbal Notification: Recipient Understood Notice: Yes Recipient Signature: Yes Med Rec Note Co-signed by Attending: Coverage Notice Comment: Reviewer: [id number] - Tone Terry Notice Issued Date-Time: 05/18/2019 9:20 Notice Type: IM Discharge Notice Notice Delivered To: Patient Relationship to Patient: Primer Boxer Name: Delivery Method: HAND - Hand Delivered Aleida Days: Prior Verbal Notification: Recipient Understood Notice: Yes Recipient Signature: Yes Med Rec Note Co-signed by Attending: Coverage Notice Comment: Last DP export: 05/19/19 2:38 Patient Name: KAREEM KOROMA Page [phone] at 1639 All edits/amendments must be made on the electronic document DICTATION DATE: 05/19/19 163 ECONOMIC DEVELOPER: ANGELITO 05/19/19 1639 RPT#: [id number] DC DATE:05/19/19 STATUS: DIS IN [facility] [address] [place] [address] END OF REPORT
== END 2019-05-19 16:26 | DRG 56 ==
LOC: D.ER 21:35 → D.CVICU 22:48 → D.M2 22:48 → D.CVICU 05-14 18:21 → D.M2 05-16 13:23
PROVIDERS: Emergency Medicine; ADMIT Internal Medicine Nephrology; ATTEND Internal Medicine Nephrology
PROC: 5A1D70Z Performance of Urinary Filtration, Intermittent, Less than 6 Hours Per Day (ICD-10-PCS; principal; 2019-05-15)
DX: I69.819 Unspecified symptoms and signs involving cognitive functions following other cerebrovascular disease (principal); N18.6 End stage renal disease; F01.51 Vascular dementia, unspecified severity, with behavioral disturbance; I13.2 Hypertensive heart and chronic kidney disease with heart failure and with stage 5 chronic kidney disease, or end stage renal disease; N39.0 Urinary tract infection, site not specified; F05 Delirium due to known physiological condition; E11.22 Type 2 diabetes mellitus with diabetic chronic kidney disease; I50.9 Heart failure, unspecified

== ENCOUNTER 2019-09-21 13:20 | Inpatient (IN) | payer MEDICARE, BC ==
[~2019-09-21] VITALS: Ht 172.7 cm; Wt 67.6 kg
[~2019-09-21 13:20] MED LIST changes: +APIDRA SOL100 UNIT/1 SQ; +CARDURA2 MG PO; +DESERYL PO; +HUMALOG 30100 UNITS/ SC; +OMNICEF300 MG PO
--- NOTE | 2019-09-21 15:30 | NUR ---
PATIENTS S-LOC DISLODGED 20G LEFT CHEST, DR. DESOUZA AT [facility] 20G S-LOC PLACED IN LEFT EJ BY DR. DESOUZA, BLOOD DRAW OBTAINED, THE 1/2 AMP D50W GIVEN THROUGH LEFT EJ.
[2019-09-21 15:34] LABS: ANION GAP 21.3 mmol/L (8-16); CALCIUM 8.5 mg/dL (8.5-10.1); CARBON DIOXIDE 22.5 mmol/L (21.0-32.0); CREATININE - SERUM 13.7 mg/dL (0.6-1.3); MAGNESIUM - SERUM 1.7 mg/dL (1.8-2.4)
[2019-09-21 15:38] LABS: POTASSIUM - SERUM 6.8 mmol/L (3.5-5.1)
--- NOTE | 2019-09-21 16:05 | NUR ---
PATIENT AWAKE WITH MILD CONFUSION, PATIENT TRANSPORTED VIA STRETCHER TO DIALYSIS, CARE DC'D TO DIALYSIS NURSE.
--- NOTE | 2019-09-21 16:37 | NUR ---
REPORT CALLED TO BAMBI ARBOLEDA ON MED 2, PATIENT REMAINS IN DIALYSIS, WILL GO FROM DIALYSIS TO 2109. ADMISSION PAPERWORK CARRIED AND GIVEN TO BAMBI ARBOLEDA ON MED 2.
--- NOTE | 2019-09-21 19:21 | NUR ---
RECEIVED REPORT. PATIENT IS CURRENTLY IN DIALYSIS.
[2019-09-21 20:00] VITALS: BP 193/86
[2019-09-22 00:31] VITALS: BMI 26.8
[2019-09-22 04:00] VITALS: BP 142/65
[2019-09-22 04:54] LABS: ANION GAP 15.3 mmol/L (8-16); BASOPHILS 0.6 % (0-2); CALCIUM 8.3 mg/dL (8.5-10.1); CARBON DIOXIDE 27.5 mmol/L (21.0-32.0); EOSINOPHILS 3.9 % (0-7); HEMATOCRIT 41.9 % (42.0-54.0); HEMOGLOBIN 13.5 g/dL (13.5-17.5); LYMPHOCYTES 23.9 % (15-50); MCHC 32.2 g/dL (31.0-37.0); MCV 96.1 fL (80.0-100.0); MEAN PLATELET VOLUME 10.4 fL (7.4-10.4); MONOCYTES 8.6 % (2-11); RBC 4.36 10x6/uL (4.20-6.10); WBC 6.7 10x3/uL (4.8-10.8)
[2019-09-22 04:55] LABS: PLATELET COUNT 174 10x3/uL (130-400)
[2019-09-22 04:56] LABS: CREATININE - SERUM 9.4 mg/dL (0.6-1.3); POTASSIUM - SERUM 4.8 mmol/L (3.5-5.1)
[2019-09-22 09:14] VITALS: BP 136/61
[2019-09-22 12:18] VITALS: BP 144/67
[2019-09-22 12:35] VITALS: Ht 172.7 cm; Wt 67.6 kg
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
[2019-09-22 17:15] VITALS: BP 160/77
--- NOTE | 2019-09-22 17:24 | NUR ---
I have reviewed this patient and I concur with the Shift Assessment completed by the Licensed Practical Nurse today this shift.
--- NOTE | 2019-09-22 20:30 | NUR ---
PT IS COMBATIVE AND WILL NOT ALLOW US TO TAKE VITAL SIGNS. ATTEMPTED TO REDIRECT BUT WAS UNSUCCESSFUL. ALERT TO NAME BUT ONLY RESPONDS WITH THE ANSWER "YA". WILL CTM.
--- NOTE | 2019-09-23 00:10 | NUR ---
PT HAS BEEN IN THE RESTROOM WITH THE LIGHTS OFF. REFUSES TO COME OUT. REFUSES FOR US TO TURN THE LIGHTS ON. NO DISTRESS, BUT CONTINUES TO BE PARANIOD.
[2019-09-23 04:49] VITALS: BP 147/70
[2019-09-23 05:12] LABS: BASOPHILS 0.7 % (0-2); EOSINOPHILS 6.4 % (0-7); HEMATOCRIT 39.5 % (42.0-54.0); HEMOGLOBIN 12.6 g/dL (13.5-17.5); LYMPHOCYTES 26.5 % (15-50); MCH 30.7 pg (26.0-34.0); MCHC 31.9 g/dL (31.0-37.0); MCV 96.3 fL (80.0-100.0); MEAN PLATELET VOLUME 11.4 fL (7.4-10.4); MONOCYTES 7.8 % (2-11); NEUTROPHILS 58.6 % (40-80); PLATELET COUNT 157 10x3/uL (130-400); WBC 5.5 10x3/uL (4.8-10.8)
[2019-09-23 05:25] LABS: ANION GAP 18.6 mmol/L (8-16); CALCIUM 8.1 mg/dL (8.5-10.1); CARBON DIOXIDE 25.7 mmol/L (21.0-32.0); CREATININE - SERUM 11.8 mg/dL (0.6-1.3); POTASSIUM - SERUM 5.3 mmol/L (3.5-5.1)
--- NOTE | 2019-09-23 09:53 | NUR ---
CONFUSED THIS AM, HAN SALINAS, WILL BE GOING TO DIALYSIS THIS AM
[2019-09-23 10:44] VITALS: BP 180/85
--- NOTE | 2019-09-23 14:00 | NUR ---
RETURNED FROM DIALYSIS, FRANCISCO J WELL, EATING MEAL
[2019-09-23 15:14] VITALS: BP 104/49
[2019-09-23 16:00] VITALS: BP 167/71
--- NOTE | 2019-09-23 19:19 | NUR ---
RECEIVED REPORT, WILL ASSUME CARE OF PT, WALKING IN MISHRA, CARRYING A BAG, SAYS HE CANT FIND HIS WALLET, WILL CONTINUE PLAN OF CARE
--- NOTE | 2019-09-23 20:59 | NUR ---
IN ROOM HITTING BED, THINKS SOME IS AFTER HIM, WILL CONTINUE PLAN OF CARE
[2019-09-24] VITALS: BP 124/68
[2019-09-24 04:00] VITALS: BP 120/73
[2019-09-24 05:23] LABS: BASOPHILS 1.2 % (0-2); EOSINOPHILS 12.5 % (0-7); HEMATOCRIT 43.6 % (42.0-54.0); HEMOGLOBIN 14.2 g/dL (13.5-17.5); LYMPHOCYTES 29.9 % (15-50); MCH 31.1 pg (26.0-34.0); MCHC 32.6 g/dL (31.0-37.0); MCV 95.6 fL (80.0-100.0); MEAN PLATELET VOLUME 11.8 fL (7.4-10.4); MONOCYTES 8.7 % (2-11); NEUTROPHILS 47.7 % (40-80); PLATELET COUNT 178 10x3/uL (130-400); RBC 4.56 10x6/uL (4.20-6.10); RDW 15.8 % (11.5-14.5); WBC 4.3 10x3/uL (4.8-10.8)
--- NOTE | 2019-09-24 05:51 | NUR ---
I GAVE AM MEDS, PT THROW THEM IN FLOOR
[2019-09-24 05:56] LABS: ANION GAP 18.6 mmol/L (8-16); CALCIUM 8.6 mg/dL (8.5-10.1); CARBON DIOXIDE 25.4 mmol/L (21.0-32.0); CREATININE - SERUM 9.7 mg/dL (0.6-1.3); PHOSPHOROUS 6.4 mg/dL (2.5-4.9)
[2019-09-24 09:18] VITALS: BP 155/76
--- NOTE | 2019-09-24 09:44 | NUR ---
RESTING IN BED, NO DISTRESS NOTED, TAKING PO MEDS WITH EASE, REFUSED BREAKFAST, CONT TO MONITOR
[2019-09-24 12:56] VITALS: BP 130/57
--- NOTE | 2019-09-24 13:40 | NUR ---
PT HAS SPENT MOST OF DAY IN BED, THINK HE IS BEING RADIATED, NOT EATING WELL, CONT TO MONITOR
--- NOTE | 2019-09-24 15:43 | NUR ---
AWAITING ON ROOM TO BE CLEANED IN PSYC UNIT SO PT CAN BE MOVED, NURSE TO CALL ME WHEN READY
[2019-09-24 17:23] VITALS: BP 137/67
--- NOTE | 2019-09-24 18:32 | NUR ---
REPORT CALLED TO PSYC UNIT, NURSE STATES THAT ROOM IS STILL NOT CLEAN AND THAT PT ACTUAL MOVE WILL HAVE TO TAKE PLACE ON SPECIAL EFFECTS TECHNICIAN, PT RESTING IN BED, CONT TO MONITOR
--- NOTE | 2019-09-24 19:33 | MORECARE ---
CASE MANAGEMENT DISCHARGE SUMMARY PATIENT: KAREEM KOROMA UNIT: [id number] ADM DATE: 09/21/19 AGE: 78 : 42 SEX: M ROOM/BED: D.2110 AUTHOR: BLANCA SPRING PHYSICIAN: REFERRING PHYSICIAN: FREDY YUAN MD DATE OF SERVICE: 09/24/19 Discharge Plan Patient Name: KAREEM KOROMA [facility] [facility] 1940 Planned Disposition: Anticipated Discharge Date: Discharge Date: Expected LOS: Initial Reviewer: [email or web address] Initial Review Date: 09/21/2019 Generated: 09/24/19 8:33 pm DCPIA - Discharge Planning Initial Assessment Updated by [email or web address]: Deb Perea on 09/24/19 7:29 pm * Is the patient Alert and Oriented? No * How many steps to enter\exit or inside your home? * PCP JUAN Patient Name: KAREEM KOROMA Page [phone] at 1933 All edits/amendments must be made on the electronic document DICTATION DATE: 09/24/191932 SENIOR PORTFOLIO ANALYST: ANGELITO 09/24/191932 RPT#: [id number] DC DATE: STATUS: ADM IN [facility] [address] [place] [address] END OF REPORT
--- NOTE | 2019-09-24 19:40 | MORECARE ---
CASE MANAGEMENT DISCHARGE SUMMARY PATIENT: KAREEM KOROMA UNIT: [id number] ADM DATE: 09/21/19 AGE: 78 : 42 SEX: M ROOM/BED: D.2110 AUTHOR: BLANCA SPRING PHYSICIAN: REFERRING PHYSICIAN: FREDY FARR MD DATE OF SERVICE: 09/24/19 Discharge Plan Patient Name: KAREEM KOROMA [facility] [facility] 1940 Planned Disposition: Anticipated Discharge Date: Discharge Date: Expected LOS: Initial Reviewer: [id number] Initial Review Date: 09/21/2019 Generated: 09/24/19 8:40 pm Comments DCP- Discharge Planning Updated by [id number]: Deb Perea on 09/24/19 6:[address] Patient Name: KAREEM KOROMA Admission Status: ER Accout number: [id number] Admission Date: 09-21-2019 : 1940 Admission Diagnosis:HYPERKALEMIA Attending: Fredy Farr Current LOS: 3 Anticipated DC Date: Planned Disposition: LONG-TERM Primary Insurance: MEDICARE A & B Discharge Planning Comments: CM RECIEVED DISCHARGE ORDER FOR LONG-TERM. CM CALLED AND SPOKE WITH NURSE (MAKEDA) AND THEY HAVE ACCPETED THE PATIENT AND ONCE ROOM IS CLEAN THEY WILL ADMIT HIM. CM WILL CONTINUE TO FOLLOW AND ASSIST NEEDED WITH D/C PLANNING / NEEDS General Road Supervisor: Deb Perea DCPIA - Discharge Planning Initial Assessment Updated by [id number]: Deb Perea on 09/24/19 7:29 pm * Is the patient Alert and Oriented? No * How many steps to enter\exit or inside your home? * PCP JUAN Last DP export: 09/24/19 6:33 pm Patient Name: KAREEM KOROMA Page [phone] at 1940 All edits/amendments must be made on the electronic document DICTATION DATE: 09/24/191939 CROP PICKER: ANGELITO 09/24/191939 RPT#: [id number] DC DATE: STATUS: ADM IN [facility] [address] [place] [address] END OF REPORT
--- NOTE | 2019-09-24 20:53 | NUR ---
TAKEN TO CARE VIA WHEELCHAIR
== END 2019-09-24 20:58 | disposition short-term general hospital (02) | DRG 640 ==
LOC: D.ER 13:20 → D.M2 15:07
PROVIDERS: Family Medicine; ADMIT Internal Medicine Nephrology; ATTEND Internal Medicine Nephrology
PROC: 5A1D70Z Performance of Urinary Filtration, Intermittent, Less than 6 Hours Per Day (ICD-10-PCS; principal; 2019-09-23)
DX: E87.5 Hyperkalemia (principal); N18.6 End stage renal disease; I13.2 Hypertensive heart and chronic kidney disease with heart failure and with stage 5 chronic kidney disease, or end stage renal disease; E11.22 Type 2 diabetes mellitus with diabetic chronic kidney disease; I50.9 Heart failure, unspecified; F03.90 Unspecified dementia, unspecified severity, without behavioral disturbance, psychotic disturbance, mood disturbance, and anxiety; D63.1 Anemia in chronic kidney disease; E11.649 Type 2 diabetes mellitus with hypoglycemia without coma; Z86.73 Personal history of transient ischemic attack (TIA), and cerebral infarction without residual deficits

== ENCOUNTER 2019-09-24 20:45 | Inpatient (IN) | payer MEDICARE, BC ==
--- NOTE | ~2019-09-24 | PN ---
PATIENT:KAREEM KOROMA MEDICAL RECORD: [id number] LOCATION:[facility] ADMISSION DATE: 09/24/19 PROGRESS NOTE DATE OF SERVICE: 10/19/2019 SUBJECTIVE: The patient's case was discussed with staff. He has no new complaint. OBJECTIVE: The patient is very disorganized. He is sedated. He has a BUN of 263 and a creatinine of 23.6. He has refused dialysis. He is not eating. He is not taking medicines. ASSESSMENT: Dementia. PLAN: The patient has been evaluated by hospice and will be transferred to inpatient hospice care today for comfort measures. TRANSINT:[id number] Voice Confirmation ID: [id number] DOCUMENT ID: [id number] RAPHAEL HERNANDEZ MD CC: [id number] DICTATION DATE: 10/19/19 1449 CHIEF NURSING OFFICER: 10/19/19 2257 DIS IN 10/19/19 [facility] [address] [place] [address]
[2019-09-24 22:33] VITALS: BP 97/55; BMI 22.2
--- NOTE | 2019-09-24 23:14 | NUR ---
NEW ADMIT TO DOCTOR MARY FROM [facility] MED2 RELATED TO ALTERED MENTAL STATUS. PATIENT REPORTEDLY HAD HALLUCINATIONS, PARANOIA AND HAD BEEN EXIT SEEKING WHILE ON MED2. PATIENTS IS ON DIALYSIS TUESDAYS, THURSDAYS AND SATURDAYS. HE HAS A LEFT FOREARM FISTULA. PATIENTS , LESLEY KOROMA, CONTACTED AND TELEPHONE ADMIT CONSENT RECEIVED. CODE STATUS OF FULL CODE ALSO RECEIVED. PATIENT IS CALM AND COOPERATIVE BUT CONFUSED WITH HIS ONLY ONIENTATION BEING TO HIMSELF. GEOVANNA ALARM ON. CONTINUE TO MONITOR.
--- NOTE | 2019-09-25 01:03 | NUR ---
UP FROM BED. VERY CONFUSED. MOVED TO A RECLINER IN HALLWAY AT NURSES STATION.
[2019-09-25 08:21] LABS: CHOL - HDL RATIO 1.6 ratio (2.3-4.9); CHOLESTEROL, TOTAL 112 mg/dL (0-200); HDL CHOLESTEROL 72 mg/dL (32-96); LDL CHOLESTEROL 30 mg/dL (0-100); LDL-HDL RATIO 0.4 ratio (1.5-3.5); THYROID STIMULATING HORMONE 2.45 uIU/mL (0.36-3.74); TRIGLYCERIDE 50 mg/dL (30-200)
[2019-09-25 08:43] VITALS: BP 124/60
--- NOTE | 2019-09-25 12:00 | NUR ---
RECEIVED IN HALLWAY OUTSIDE OF NURSES STATION. UNCOOPERATIVE WITH CARE AT TIMES. BECOMES AGITATED WITH REDRIECTION. DELUSIONALLY THINKING EVERYONE HE TOUCHES WILL AND HE IS BEING POISONED. AUDITORY HALLUCINATIONS OF GUN SHOTS BEING FIRED. REDIRECT AND REORIENT NEEDED. EATING LUNCH AT THIS TIME. CONTINUE PLAN OF CARE.
[2019-09-25 13:26] VITALS: Wt 76.1 kg
[2019-09-25 16:20] LABS: BILIRUBIN NEGATIVE (NEGATIVE); GLUCOSE NEGATIVE (NEGATIVE); KETONE NEGATIVE (NEGATIVE); NITRITE NEGATIVE (NEGATIVE); UROBILINOGEN NORMAL (NORMAL)
[2019-09-25 16:21] LABS: BACTERIA MANY /hpf (NEGATIVE); RED CELLS - URINE 0-5 /hpf (0-5)
[2019-09-25 19:22] VITALS: BP 147/82
--- NOTE | 2019-09-25 19:28 | NUR ---
RECEIVED IN DAYROOM. SITTING AT THE TABLE WITH PEERS AT HIS SIDE. CONFUSED. REDIRECT AND REORIENT NEEDED. CONTINUES TO SIT AT TABLE WITH PEERS. CONTINUE PLAN OF CARE.
--- NOTE | 2019-09-26 00:55 | NUR ---
PT IS PARANOID THAT STAFF IS GOING TO POISON HIM. HE AWOKE THIS AM AND WAS VERY UNSTEAD ON HIS FEET. ALMOST FELL INTO THE WALL. REDIRECTED HIM TO THE BED AND HE STATES "I DONT TRUST YOU. I WANT TO GO HOME." WILL CONTINUE TO REDIRECT PT.
--- NOTE | 2019-09-26 02:56 | NUR ---
PT GOT UP AT 0245 AND STARTED TO RUN DOWN THE MISHRA TOWARD THE DAYROOM. HE IS INCREASINGLY GETTING ANGRY STATING "YALL ARE TRYING TO KILL ME". HE IS STILL VERY UNSTEADY ON HIS FEET. HE IS ATTEMPTING TO SWING AT STAFF. ATTEMPTING TO REDIRECT. WILL CONTINUE TO MONITOR.
[2019-09-26 07:12] LABS: RAPID PLASMA REAGIN Non Reactive (Non Reactive)
[2019-09-26 07:20] LABS: BASOPHILS 0.7 % (0-2); EOSINOPHILS 12.3 % (0-7); HEMATOCRIT 41.1 % (42.0-54.0); HEMOGLOBIN 13.1 g/dL (13.5-17.5); LYMPHOCYTES 33.2 % (15-50); MCH 30.9 pg (26.0-34.0); MCHC 31.9 g/dL (31.0-37.0); MCV 96.9 fL (80.0-100.0); MONOCYTES 8.4 % (2-11); NEUTROPHILS 45.4 % (40-80); PLATELET COUNT 150 10x3/uL (130-400); RBC 4.24 10x6/uL (4.20-6.10); RDW 15.9 % (11.5-14.5); WBC 5.5 10x3/uL (4.8-10.8)
[2019-09-26 07:31] LABS: ANION GAP 20.6 mmol/L (8-16); CALCIUM 7.9 mg/dL (8.5-10.1); CARBON DIOXIDE 21.1 mmol/L (21.0-32.0); CREATININE - SERUM 13.7 mg/dL (0.6-1.3); POTASSIUM - SERUM 4.7 mmol/L (3.5-5.1)
[2019-09-26 07:47] VITALS: BP 186/74
--- NOTE | 2019-09-26 08:30 | NUR ---
RECEIVED IN HALLWAY OUTSIDE OF NURSES STATION. CALM AND COOPERATIVE WITH CARE AND ASSESSMENT. PARANOID AND DELUSIONAL. VERY FORGETFUL AND CONFUSED. REDIRECT AND REORIENT NEEDED. EATING BREAKFAST AT THIS TIME. CONTINUE PLAN OF CARE.
--- NOTE | 2019-09-26 11:32 | PSY ---
PATIENT NAME:KAREEM KOROMA MEDICAL RECORD: [id number] : 44 LOCATION:[facility]1 ADMISSION DATE: 09/24/19 ACCOUNT: [id number] PSYCHIATRIC EVALUATION DATE OF EVALUATION: 09/25/19 IDENTIFYING DATA: The patient is 78 years old and he is admitted to the hospital on a voluntary basis. CHIEF COMPLAINT: Confusion and hallucinations. HISTORY OF PRESENT ILLNESS: The patient has a history of end-stage renal disease and is currently on hemodialysis. He apparently was confused and was admitted to the medical floor. He has been paranoid and hallucinating and is not fully oriented. He is somewhat suspicious, rambling and only minimally cooperative with the evaluation. He apparently was in the hospital in [place] and was subsequently transferred here because of these symptoms of confusion. He did have a CT of the head done in [place] and it was negative for any acute process. PAST MEDICAL HISTORY: Significant for stroke, diabetes, congestive heart failure, hypertension, and renal failure with dialysis. PAST PSYCHIATRIC HISTORY: Significant for at least 1 previous clinical hospitalization on the behavioral unit. That took place here about 2 years ago. At that time, he was confused and delusional. FAMILY HISTORY: Significant for some poorly described lung disease. ALLERGIES: ATIVAN AND COLCHICINE. CURRENT MEDICATIONS: Include Cardura, Lipitor, isosorbide, Procardia, Catapres, folic acid. SOCIAL HISTORY: The patient is a nonsmoker and a nonabuser of drugs or alcohol. He is and apparently is living in a intermediate. MENTAL STATUS EXAMINATION: The patient is awake, alert and oriented to person only. His mood is anxious. His affect is constricted. Thought processes are circumstantial. Memory, concentration, and abstraction abilities are at least moderately impaired and he denies that he would seek to harm himself or others as well as psychotic symptoms. ASSESSMENT: AXIS I: Major neurocognitive disorder of the Alzheimer's type with behavioral disturbances. AXIS II: None. AXIS III: End-stage renal disease, hypertension, congestive heart failure, coronary artery disease, diabetes, degenerative joint disease, gastroesophageal reflux disease, seizure disorder, poorly described, hyperlipidemia and vitamin D deficiency. AXIS IV: Severe. AXIS V: Global assessment of functioning is 35. PLAN: At this time, the patient is admitted to the hospital secondary to confused, agitated and paranoid symptoms associated with a dementing illness. He will be treated with antipsychotic and mood stabilizing medications. His long-term prognosis is guarded. TRANSINT:[id number] Voice Confirmation ID: [id number] DOCUMENT ID: [id number] RAPHAEL HERNANDEZ MD at 1132 CC: [id number] DICTATION DATE: 09/25/19 1504 FOREST TECHNICIAN: 09/25/19 1517 ADM IN [place] [id number] [place] [id number]
--- NOTE | 2019-09-26 14:51 | NUR ---
PT REFUSED DIALYSIS. STAFF ATTEMPTED MULTIPLE TIMES BUT PT REFUSED. PT IS GUARDED AND WITHDRAWN. PT IS PACING THE UNIT.
--- NOTE | 2019-09-26 15:43 | NUR ---
SPENT APPROXIMATELY 60 MIN ATTEMPTING TO DO HEMODIALYSIS ON PATIENT. UNABLE TO INITIATE TREATMENT DUE TO CONFUSION. THE LONGER I ATTEMPTED TO RE-ORIENT PATIENT AND "TALK HIM INTO IT", THE MORE AGGITATED HE WAS BECOMING. STOPPED AND SPOK WITH STAFF, CONTACTED RHONDA PALMER APN. ORDERED HOLD ON DIALYSIS TODAY, RETRY AGAIN IN AM. PLAN TO RUN PATIENT IN AM BEFORE "" IF CAN.
--- NOTE | 2019-09-26 19:23 | NUR ---
RECEIVED IN DAYROOM. SITTING IN A CHAIR WITH PEERS AT HIS SIDE. CALM AND COOPERATIVE WITH CARE AND ASSESSMENT. REDIRECT AND REORIENT NEEDED. CONTINUES TO SIT QUIETLY IN DAYROOM. CONTINUE PLAN OF CARE.
[2019-09-26 19:43] VITALS: BP 157/75
[2019-09-27 08:15] VITALS: BP 174/81
--- NOTE | 2019-09-27 10:17 | PN ---
PATIENT:KAREEM KOROMA MEDICAL RECORD: [id number] LOCATION:[facility]112 ADMISSION DATE: 09/24/19 PROGRESS NOTE DATE OF SERVICE: 09/26/2019 SUBJECTIVE: The patient's case was discussed with staff. He has no new complaint. OBJECTIVE: The patient is in good behavioral control. He has poor insight about his situation. He tolerates his medicines well. He is somewhat paranoid, but much calmer today. He is impaired cognitively. ASSESSMENT: Dementia. PLAN: The patient will be maintained on current medications, which I have reviewed. His long-term prognosis is guarded. TRANSINT:[id number] Voice Confirmation ID: [id number] DOCUMENT ID: [id number] RAPHAEL HERNANDEZ MD at 1017 CC: [id number] DICTATION DATE: 09/26/19 1215 TEXTILE CONVERTER: 09/26/19 1813 ADM IN [facility] [address] [place] [address]
--- NOTE | 2019-09-27 10:21 | NUR ---
The patient is very watchful and paranoid. He is worried about germs. He was hesitant to take his meds, but Sun [facility]bert CNA was able to encourage him since she spent time with him yesterday. He is pleasant, but forgets within minutes. He ambulates independently. Provide prescribed meds. He has not tried to exit out of the unit this am. Provide prescribed meds. Continue POC.
--- NOTE | 2019-09-27 11:25 | NUR ---
PT ALLOWED DIALYSIS TODAY.
--- NOTE | 2019-09-27 12:59 | NUR ---
Nutrition Follow-up: Pt refused breakfast and lunch yesterday. Unable to do HD yesterday 2/2 confusion/aggitation but pt allowed it today. Diet: Renal PO intake: 46% avg x 6 meals Wt: 145.8# (09/23) Last BM: 09/22 Labs noted (09/25): Na 134, K+ 4.7, Glu 122, Ca 7.9 Meds noted: Protonix, Phoslo, Carafate, vitamin D, Lantus, Folate -Encourage PO intake and honor food preferences within diet restrictions. -Offer Nepro with meals. -Pt may benefit from appetite stimulant if continues to refuse meals. -Monitor wt. -RD following.
--- NOTE | 2019-09-27 13:30 | NUR ---
WAS ABLE TO DIALYSIS PATIENT FOR 1HR AND 45 MINUTES. PATIENT SLEPT THROUGH FIRST HOUR. HOUSEKEEPING WOKE PATIENT AND HE IMMEDIATELY WAS TRYING TO GET UP, WAS INSISTING THAT I AM NOT "RONEY" AND THAT I AM NOT REALLY A DIALYSIS NURSE. WAS ABLE TO KEEP PATIENT SATISFIED FOR ABOUT 30 MINUTES WITH CONSTANT RE-ORIENTING, BUT HE BECAME INCREASINGLY MORE SUSPICIOUS/AGGITATED. I DISCONTINUED TREATMENT, WENT TO THE HALLWAY AND FOUND 3 NURSES. I INFORMED THEM THAT THE PATIENT WAS GETTING OUT OF HAND AND WANTED TO MAKESURE THEY WERE GOING TO BE NEARBY FOR NEEDLE REMOVAL, OTHERWISE I FELT IT WOULD BE SAFER TO WALK THE PATIENT TO THE DAY ROOM AND REMOVE THEM SO I WOULD HAVE SOMEONE WHO COULD HELP ME. I WAS TOLD THEY WERE GOING TO BE THERE, AND I COULD HEAR THEM TALKING FROM HIS ROOM WHICH IS [place]. 15 FT AW[address]. I RETURNED TO PATIENT'S ROOM AND BEGAN REMOVING HIS NEEDLES WHICH HE BECAME MORE AGGITATED WITH INSISTING I WAS NOT DOING IT CORRECTLY AND STARTED PULLING AT TAPE/NEEDLES HIMSELF. I YELLED FOR HELP THE FIRST TIME AT THIS POINT. NO ASSISTANCE. YELLED FOR HELP AGAIN WHEN HE BEGAN TO TRY AND SIT UP IN ATTEMPT TO WALK AWAY WITH ME STILL TRYING TO HOLD HIS FIRST NEEDLE REMOVAL. NO ASSISTANCE. HOWEVER I COULD HEAR ALL 3 NURSES AND A DOCTOR "TALKING" FROM HIS ROOM, SO I WAS SURE SOMEONE WOULD ARRIVE SHORTLY TO ASSIST, AND WENT AHEAD AND REMOVED HIS OTHER NEEDLE. NOONE EVER CAME TO ASSIST, I DID NOT RECEIVE ANY INJURIES NOR DID THE PATIENT BUT THE SITUATION WAS UNSAFE FOR BOTH THE PATIENT AND MYSELF. REPORTED INCIDENT TO DIAYSIS CITY TREASURER, DR. PALACIO, AND MARIA ISABEL MONROY APN.
--- NOTE | 2019-09-27 15:45 | NUR ---
HELD PTS CLONIDINE 0.3 MG. BLOOD PRESSURE: 147/61, P: 71.
--- NOTE | 2019-09-27 17:57 | NUR ---
PT TOOK ALL MEDICATIONS THIS SHIFT. PT ALLOWED INSULIN ADMINISTERED. PT ATE IN DINING ROOM WITH ALL OTHER PEERS.
[2019-09-27 20:30] VITALS: BP 149/64
--- NOTE | 2019-09-27 21:16 | NUR ---
PATIENT IS VERY CONFUSED, NO INSIGHT, COMPLIANT WITH MEDS, CAN MAKE SIMPLE NEEDS KNOWN, WILL FOLLOW POC
[2019-09-28 08:16] VITALS: BP 155/72
--- NOTE | 2019-09-28 08:27 | PN ---
PATIENT:KAREEM KOROMA MEDICAL RECORD: [id number] LOCATION:[facility] ADMISSION DATE: 09/24/19 PROGRESS NOTE DATE OF SERVICE: 09/27/2019 SUBJECTIVE: The patient's case was discussed with staff. He has no new complaint. OBJECTIVE: The patient denies intent to harm himself or others. He is significantly calmer than he has been. He is partially oriented. He refused dialysis yesterday. He agreed to it today. ASSESSMENT: Dementia. PLAN: The patient's Celexa will be increased slightly. Celexa is being used to treat his underlying depressive symptoms. He will be monitored for clinical changes associated with its use. TRANSINT:[id number] Voice Confirmation ID: [id number] DOCUMENT ID: [id number] RAPHAEL HERNANDEZ MD at 0827 CC: [id number] DICTATION DATE: 09/27/19 1432 RETAIL FINANCIAL ANALYST: 09/27/19 1702 ADM IN [facility] [address] [place] [address]
[2019-09-28 08:59] VITALS: BP 155/72
--- NOTE | 2019-09-28 10:42 | NUR ---
The patient is watchful, he is pleasant and he is listening to staff and he has not been argumentative. He ambulates independently. Provide prescribed meds. The patient is compliant with meds. He has not made any paranoid statements, but he watches staff and his surroundings. He is not interacting with peers or staff unless he is spoken to first. Continue POC.
[2019-09-28 20:25] VITALS: BP 158/76
--- NOTE | 2019-09-28 21:43 | NUR ---
B)RECEIVED PATIENT RECEIVING HIS DIALYSIS TREATMENT. ALERT AND ORIENTED TO SELF AND PLACE. REALTES HE CRAMPED SOME TODAY WITH HIS DIALYSIS. PREOCCUPIED WITH GOING HOME. CALM AND COOPERATIVE. I)ADMINISTER MEDS AND MONITOR COMPLIANCE. REORIENT NEEDED. R)MED COMPLIANT. REORIENTS HOWEVER IS FORGETFUL AND DOES NOT RETAIN INFORMATION. P)CONTINUE POC AND PROVIDE SAFE ENVIRONMENT.
--- NOTE | 2019-09-29 08:38 | NUR ---
The patient is awake and alert and he is quiet, he is watchful. He likes to watch everything that is going on around him. He has not tried to exit the unit this am. He has not mentioned radiation this am. Provide prescribed meds. Continue POC.
[2019-09-29 09:39] VITALS: BP 111/51
--- NOTE | 2019-09-29 09:41 | NUR ---
pt blood pressure medications. b/p: 111/51.
--- NOTE | 2019-09-29 12:09 | NUR ---
PT BROTHER CALLED TO CHECK ON PT. PASSOCODE GIVEN. HE WANTED TO KNOW IF HE WAS STILL PARANOID, THINKING IF PEOPLE WANTS TO KILL HIS FAMILY AND WHAT WE THINK CAUSED HIM TO ACT THAT WAY. NURSE GAVE HIM SOME INFORMATION ABOUT WHAT THE DOCTOR WROTE IN HIS NOTE. HE HAS DEMENTIA AND MAYBE HE NEEDED A MEDICATION ADJUSTMENT OR MAYBE HE STOPPPED TAKING HIS MEDS. NURSE EXPLAINED THAT HE WAS TAKING HIS MEDICATIONS HERE AND WAS NOT HAVING ANY PARANOID BEHAVIORS THAT WE PRONOUCED. HE THANKED NURSE FOR INFORMATION.
[2019-09-29 20:23] VITALS: BP 144/66
--- NOTE | 2019-09-29 21:06 | NUR ---
B.) PT IS ALERT AND ORIENTED TO SELF ONLY. HE HAS POOR INSIGHT INTO HIS SITUATION. HE IS STILL PARANOID AND FLAT AFFECT. HE IS ARGUMENTATIVE WITH STAFF AT [facility]. I.) PROVIDED PM MEDICATIONS PRESCRIBED. REDIRECT OFTEN. R.) COMPLIANT WITH MEDICATIONS ONLY AFTER BECOMING ARGUMENTATIVE. DIFFICULT TO REDIRECT AT TIMES. P.) WILL CONTINUE TO MONITOR.
[2019-09-30 06:15] LABS: HEMATOCRIT 36.8 % (42.0-54.0); HEMOGLOBIN 11.9 g/dL (13.5-17.5); LYMPHOCYTES 36.9 % (15-50); MCH 30.7 pg (26.0-34.0); MCHC 32.3 g/dL (31.0-37.0); MCV 95.1 fL (80.0-100.0); MEAN PLATELET VOLUME 11.2 fL (7.4-10.4); NEUTROPHILS 45.3 % (40-80); PLATELET COUNT 161 10x3/uL (130-400); RBC 3.87 10x6/uL (4.20-6.10); RDW 15.8 % (11.5-14.5); WBC 4.3 10x3/uL (4.8-10.8)
[2019-09-30 06:20] LABS: ANION GAP 17.2 mmol/L (8-16); CALCIUM 7.8 mg/dL (8.5-10.1); CARBON DIOXIDE 24.4 mmol/L (21.0-32.0); CREATININE - SERUM 13.2 mg/dL (0.6-1.3); POTASSIUM - SERUM 4.6 mmol/L (3.5-5.1)
--- NOTE | 2019-09-30 06:31 | NUR ---
LAB CALLED TO NOTIFY OF A CRITICAL LAB OF B[facility] OF 115. DR. RANDHAWA NOTIFIED. DR. RANDHAWA STATED PT HAS DIALYSIS TODAY. NO FURTHER ORDERS GIVEN. CRITICAL LAB FORM FILLED OUT AND PLACED IN PT'S CHART. WILL CONTINUE TO MONITOR.
[2019-09-30 08:17] VITALS: BP 159/78
--- NOTE | 2019-09-30 09:40 | NUR ---
The patient is awake, he is paranoid and watchful. Took his vital signs and he is questioning everything. Had to recheck his bp and he withdrew his arm. He said "You're not going to give me any sugar." Explained to him that I am just rechecking his bp. He relaxed and said "Ok" Provide prescribed meds. The patient is compliant with meds, but he questions and he is slow and watchful. Redirect and reorient to reality as needed. Continue POC.
[2019-09-30 20:11] VITALS: BP 131/59
--- NOTE | 2019-09-30 21:18 | NUR ---
B.) PT IS ALERT AND ORIENTED TO SELF ONLY. HE IS RECEIVED IN HIS ROOM AND IS ACCOMPANIED WITH THE DIALYSIS NURSE. HE HAS POOR INSIGHT INTO HIS SITUATION AND ADMITS TO NOT WANTING TO DO THE FULL TREATMENT. HE IS STILL PARANOID ABOUT STAFF. HE HAS A FLAT AFFECT THIS EVENING. I.) REDIRECT OFTEN. ADDRESS NEEDS AND WANTS AT THIS TIME. R.) DIFFICULT TO REDIRECT AT TIMES. DENIES ANY NEEDS AT THIS TIME. P.) WILL CONTINUE TO MONITOR.
--- NOTE | 2019-09-30 22:09 | NUR ---
SPOKE WITH [employer] EXECUTIVE CLOUD SALES NURSE. SHE STATED SHE REMOVED 3L TODAY WHILE RUNNING FOR 3 HOURS. HIS BP REMAINED STABLE. 109/64 AT ITS LOWEST AND IMMEDIATELY AFTER WAS 153/75 WITH A HR OF 75. HE WAS CONFUSED THE MAJORITY OF THE TIME BUT WAS COOPERATIVE. WILL CONTINUE TO MONITOR.
--- NOTE | 2019-10-01 03:55 | NUR ---
PT IS STILL PARANOID ABOUT SLEEPING IN HIS ROOM AND HAS SPENT THE NIGHT SLEEPING IN THE [facility] IN A WHEEL CHAIR. WILL CONTINUE TO MONITOR.
[2019-10-01 07:41] VITALS: BP 123/59
--- NOTE | 2019-10-01 10:36 | NUR ---
The patient is awake and alert, he says he slept well last night, but he is paranoid, he took all of his meds except the klonpin, he said "I don't take Klonopin." Explained to him that he has been taking it for several days. He refused today. He believes it is like aspirin, but no amount of explaining that it is not would help him understand. He is paranoid. Provide prescribed meds. The patient is compliant with meds. Continue POC.
--- NOTE | 2019-10-01 18:58 | NUR ---
RECEIVED IN DAYROOM. SITTING IN A WHEELCHAIR AT TABLE WITH EYES CLOSED. CALM AND COOPERATIVE WITH CARE AND ASSESSMENT. NO DELSUIONAL STATEMENTS MADE. REDIRECT AND REORIENT NEEDED. CONTINUES TO REST QUIETLY IN DAYROOM. CONTINUE PLAN OF CARE.
[2019-10-01 20:00] VITALS: BP 104/44
--- NOTE | 2019-10-02 01:00 | NUR ---
PARANOIA. THINKS SOMEONE IS SHOOTING HIM. WILL NOT GO TO HIS ROOM.
[2019-10-02 08:05] VITALS: BP 140/74
--- NOTE | 2019-10-02 12:00 | NUR ---
RECEIVED IN HALLWAY OUTSIDE OF NURSES STATION. CALM AND COOPERATIVE WITH CARE AND ASSESSMENT. NO EXIT SEEKING BEHAVIOR. REDIRECT AND REORIENT NEEDED. EATING AT THIS TIME. CONTINUE PLAN OF CARE.
--- NOTE | 2019-10-02 13:22 | PN ---
PATIENT:KAREEM KOROMA MEDICAL RECORD: [id number] LOCATION:[facility] ADMISSION DATE: 09/24/19 PROGRESS NOTE DATE OF SERVICE: 09/28/2019 SUBJECTIVE: The patient's case was discussed with staff. He has no new complaint. OBJECTIVE: The patient has been paranoid and extremely unpleasant. He is rude, demanding, and difficult to redirect. ASSESSMENT: Dementia. PLAN: The patient is going to be treated with a higher dose of Namenda at 5 mg twice daily. His long-term prognosis is guarded. TRANSINT:[id number] Voice Confirmation ID: [id number] DOCUMENT ID: [id number] RAPHAEL HERNANDEZ MD at 1322 CC: [id number] DICTATION DATE: 09/28/19 1532 CASINO CAGE MANAGER: 09/28/[address] [facility] [address] [place] [address]
--- NOTE | 2019-10-02 13:58 | NUR ---
Nutrition Follow-up: Overall good PO intake. Diet: Renal, Nepro daily PO intake: 82% avg x 9 meals Wt: 153# (09/30); 145.8# (09/23) Last BM: 09/27 Labs noted: Glu 110 Meds noted: Protonix, Phoslo, Humalog, Carafate, vitamin D, Lantus, Folate -Encourage PO intake and honor food preferences within diet restrictions. -Monitor wt. -RD following.
--- NOTE | 2019-10-02 20:09 | NUR ---
RECEIVED IN DAYROOM. SITTING IN A CHAIR WITH PEERS AT HIS SIDE. CALM AND COOPERATIVE WITH CARE AND ASSESSMENT. NO DELSUIONAL STATEMENTS MADE THIS EVENING. REDIRECT AND REORIENT NEEDED. CONTINUES TO REST QUIETLY IN DAYROOM. CONTINUE PLAN OF CARE.
[2019-10-02 20:51] VITALS: BP 151/64
[2019-10-03 08:03] LABS: HEMATOCRIT 37.2 % (42.0-54.0); HEMOGLOBIN 12.7 g/dL (13.5-17.5); MCH 33.8 pg (26.0-34.0); MCHC 34.1 g/dL (31.0-37.0); MCV 98.9 fL (80.0-100.0); MEAN PLATELET VOLUME 9.5 fL (7.4-10.4); NEUTROPHILS 62.9 % (40-80); RBC 3.76 10x6/uL (4.20-6.10); RDW 12.7 % (11.5-14.5); WBC 5.8 10x3/uL (4.8-10.8)
[2019-10-03 08:07] LABS: PLATELET COUNT 251 10x3/uL (130-400)
[2019-10-03 08:41] VITALS: BP 177/71
[2019-10-03 09:27] LABS: ALBUMIN 3.7 g/dL (3.4-5.0); ANION GAP 21.5 mmol/L (8-16); BILIRUBIN - TOTAL 0.28 mg/dL (0.2-1.3); CALCIUM 8.3 mg/dL (8.5-10.1); CARBON DIOXIDE 21.5 mmol/L (21.0-32.0); CREATININE - SERUM 13.2 mg/dL (0.6-1.3); PROTEIN - SERUM 7.2 g/dL (6.4-8.2)
--- NOTE | 2019-10-03 09:38 | PN ---
PATIENT:KAREEM KOROMA MEDICAL RECORD: [id number] LOCATION:[facility] ADMISSION DATE: 09/24/19 PROGRESS NOTE DATE OF SERVICE: 10/02/2019 SUBJECTIVE: The patient's case was discussed with staff. He has no new complaint. OBJECTIVE: The patient denies intent to harm himself or others. He is generally tolerating his medicines well. He has limited insight about his situation. He is eating well, but not sleeping very well. ASSESSMENT: Dementia. PLAN: The patient will be given trazodone to assist with sleep consolidation. He will be monitored for clinical changes associated with its use. His long-term prognosis is guarded. TRANSINT:[id number] Voice Confirmation ID: [id number] DOCUMENT ID: [id number] RAPHAEL HERNANDEZ MD at 0938 CC: [id number] DICTATION DATE: 10/02/19 1519 GINNING OPERATOR: 10/02/19 1559 ADM IN [facility] [id number] [place] [address]
--- NOTE | 2019-10-03 12:00 | NUR ---
RECEIVED IN HALLWAY OUTSIDE OF NURSES STATION. CALM AND COOPERATIVE WITH CARE AND ASSESSMENT. NO EXIT SEEKING BEHAVIORS. REDIRECT AND REORIENT NEEDED. EATING LUNCH AT THIS TIME. CONTINUE PLAN OF CARE.
--- NOTE | 2019-10-03 19:16 | NUR ---
RECEIVED IN DAYROOM. SITTING IN A WHEELCHAIR WITH PEERS AT HIS SIDE. CALM AND COOPERATIVE WITH CARE AND ASSESSMENT.NO DELUSIONAL STATEMENTS MADE THIS EVENING. REDIRECT AND REORIENT NEEDED. CONTINUES TO SIT CALMLY. CONTINUE PLAN OF CARE.
[2019-10-03 20:00] VITALS: BP 143/50
[2019-10-04 08:00] VITALS: BP 125/63
--- NOTE | 2019-10-04 12:00 | NUR ---
RECEIVED IN HALLWAY OUTSIDE OF NURSES STATION. CALM AND COOPERATIVE WITH CARE AND ASSESSMENT. VERY DROWSY TODAY. NO BEHAVIORS. REDIRECT AND REORIENT NEEDED. EATING AT THIS TIME. CONTINUE PLAN OF CARE.
--- NOTE | 2019-10-04 12:53 | PN ---
PATIENT:KAREEM KOROMA MEDICAL RECORD: [id number] LOCATION:[facility] ADMISSION DATE: 09/24/19 PROGRESS NOTE DATE OF SERVICE: 10/03/2019 SUBJECTIVE: The patient's case was discussed with staff. He has no new complaint. OBJECTIVE: The patient denies intent to harm himself or others. He is impaired cognitively. He has not been aggressive. I observed no paranoid thoughts today. ASSESSMENT: Dementia. PLAN: Current medicines have been reviewed and will be maintained. Both supportive and educational interventions were made. His long-term prognosis is guarded. TRANSINT:[id number] Voice Confirmation ID: [id number] DOCUMENT ID: [id number] RAPHAEL HERNANDEZ MD at 1253 CC: [id number] DICTATION DATE: 10/03/19 1156 ADMINISTRATIVE SECRETARY: 10/03/19 1315 ADM IN [facility] [address] [place] [id number]
[2019-10-04 20:06] VITALS: BP 116/73
--- NOTE | 2019-10-04 22:12 | NUR ---
B.) PT IS ALERT AND ORIENTED TO SELF ONLY. HE IS RECEIVED IN THE DAYROOM IN HIS WHEELCHAIR. HE IS UNCOOPERATIVE AND ARGUMENTATIVE WITH STAFF. HE IS AFRAID TO GO INTO HIS ROOM. I.) PROVIDED PM MEDICATIONS PRESCRIBED. REDIRECT OFTEN. R.) COMPLIANT WITH ALL MEDICATIONS. DIFFICULT TO REDIRECT. P.) WILL CONTINUE TO MONITOR.
[2019-10-05 10:29] VITALS: BP 115/71
--- NOTE | 2019-10-05 12:13 | NUR ---
SET UP FOR TX IN ROOM 1121 FOR PT. ANTONIO BROUGHT PT TO ROOM VIA WHEELCHAIR AND WE HAD TO PHYSICALLY PICK PT UP FROM CHAIR AND GET HIM TO BED BECAUSE HE REFUSED TO STAND ON HIS OWN. WHEN PT WAS IN BED, LET HIM KNOW THAT I WAS DOING DIALYSIS ON HIM. HE CROSSED HIS ARMS TIGHTLY AND WOULDN'T STRAIGHTEN THEM. WAS ABLE TO GET B/P CUFF ON, BUT PT ROLLED TO LEFT SIDE AND LAYED ON FISTULA ARM. CALLED FOR A TEAM MATE TO COME AND SIT WITH ME PT WAS AGITATED AND I WAS CONCERNED FOR MY SAFETY. CALLED PRIMARY NURSE AND ASKED IF PT HAD SOMETHING TO TAKE FOR ANXIETY AND AGITATION. I NOTICED THAT PT HAD GEODON AND RONY ORDERED. NURSE WOULDN'T BRING MEDICATION FOR PT. ANOTHER NURSE CAME IN ROOM, AND FOR APPROX. 30 MINUTES TRIED TO TALK PT IN TO HAVING TX. HE CONTINUED TO REFUSE. CANCELLED TX. TEXTED DR YUAN AND LET HIM KNOW THAT PT WAS REFUSING AND WAS BECOMING AGITATED.
--- NOTE | 2019-10-05 12:34 | NUR ---
PT SITTING AT TABLE EATING AT THIS TIME. PT REFUSED DIALYSIS STATING IT WAS NOT HIS CORRECT DAY FOR DIALYSIS. NURSES 2X ATTEMPTED TO EXPLAIN THAT HE MISSED DIALYSIS AND THE SCHEDULE WAS OFF. PT STATED BUT ITS NOT MY DAY. SO PT STATED TOMORROW HE WOULD DO DIALYSIS. PT COMPLIANT WITH MEDS, VITALS AND ASSESSMENT. CHAIR ALARM IN PLACE AND ACTIVE. WILL CONT PLAN OF CARE.
--- NOTE | 2019-10-05 13:58 | NUR ---
Nutrition Follow-up: PO intake fluctuating. Ate 40-90% of meals yesterday. Noted pt refusing HD today. Diet: Renal, Nepro daily PO intake: 67% avg x 9 meals Wt: 153# (09/30); 145.8# (09/23) Last BM: 10/03 per chart Labs noted: Glu 176 Meds noted: Protonix, Phoslo, Folate, Carafate, vitamin D, Lantus -Change to renal carb consistent for improved Glu control. -Encourage PO intake and honor food preferences within diet restrictions. -Monitor wt. -RD following.
--- NOTE | 2019-10-05 14:44 | PN ---
PATIENT:KAREEM KOROMA MEDICAL RECORD: [id number] LOCATION:[facility] ADMISSION DATE: 09/24/19 PROGRESS NOTE DATE OF SERVICE: 10/04/2019 SUBJECTIVE: The patient's case was discussed with staff. He has no new complaint. OBJECTIVE: The patient denies intent to harm himself or others. He is generally tolerating his medications well. He has pretty limited insight about his situation. ASSESSMENT: Dementia. PLAN: The patient will be taken off Klonopin and trazodone because he looks somewhat sedated. This may be related to the medications I am giving him, but with its abrupt onset and temporally time to when he had dialysis, I think it may be related to the several liters of fluid that were withdrawn. I am going to maintain him on the Trilafon and the Namenda. TRANSINT:[id number] Voice Confirmation ID: [id number] DOCUMENT ID: [id number] RAPHAEL HERNANDEZ MD at 1444 CC: [id number] DICTATION DATE: 10/04/19 155 TEXTILE CHEMIST: 10/04/19 155 ADM IN [facility] [id number] [place] [address]
[2019-10-05 20:00] VITALS: BP 188/66
--- NOTE | 2019-10-05 22:09 | NUR ---
B)RECEIVED PATIENT SITTING IN THE DAYROOM. WITHDRAWM AND ISOLATIVE. LOOKS AT NURSE AND THEN LOOKS AWAY. WON'T ANSWER. SUSPICIOUS AND WATCHES OTHER PATIENTS. I)ADMINISTER MEDS AND MONITOR COMPLIANCE. PROMPT PATIENT TO INTERACT WITH STAFF AND PEERS. R)MED COMPLIANT. REMAINS WITHDRAWN AND ISOLATIVE. SITS AND WATCHES OTHERS. P)CONTINUE POC AND PROVIDE SAFE ENVIRONMENT.
[2019-10-06 08:38] LABS: BASOPHILS 0.8 % (0-2); EOSINOPHILS 10.6 % (0-7); HEMATOCRIT 35.4 % (42.0-54.0); HEMOGLOBIN 11.6 g/dL (13.5-17.5); IMMATURE GRANULOCYTES 0.2 % (0-5); LYMPHOCYTES 25.4 % (15-50); MCH 30.4 pg (26.0-34.0); MCHC 32.8 g/dL (31.0-37.0); MCV 92.9 fL (80.0-100.0); MEAN PLATELET VOLUME 9.7 fL (7.4-10.4); MONOCYTES 8.5 % (2-11); NEUTROPHILS 54.5 % (40-80); RBC 3.81 10x6/uL (4.20-6.10); RDW 15.5 % (11.5-14.5); WBC 6.6 10x3/uL (4.8-10.8)
[2019-10-06 08:51] LABS: ANION GAP 22.2 mmol/L (8-16); CALCIUM 8.5 mg/dL (8.5-10.1); CARBON DIOXIDE 22.4 mmol/L (21.0-32.0); CREATININE - SERUM 13.7 mg/dL (0.6-1.3); POTASSIUM - SERUM 4.6 mmol/L (3.5-5.1)
[2019-10-06 08:52] LABS: PLATELET COUNT 152 10x3/uL (130-400)
[2019-10-06 09:41] VITALS: BP 171/65
--- NOTE | 2019-10-06 10:50 | NUR ---
PT SITTING IN W/C IN DAYAREA. PT IS QUIET AND WITHDRAWN. TENDS TO ISOLATE. PT CONTS TO BE PARANOID LIMITING CONTACT WITH PEERS AND STAFF. PT IS CONFUSED AND ALERT TO SELF ONLY. DISORIENTED TO PLACE, TIME AND SITUATION. PT IS COMPLIANT WITH STAFF, VITALS AND ASSESSMENT. CHAIR ALARM IN PLACE AND ACTIVE. WILL CONT PLAN OF CARE.
--- NOTE | 2019-10-06 11:04 | NUR ---
LAB CALLED FOR A CRITICAL LAB AND BUN WAS 141. Williams LAMAR WAS NOTIFIED. PT HAS DIALYSIS THIS SHIFT. NO NEW ORDERS GIVEN.
--- NOTE | 2019-10-06 13:40 | NUR ---
DIALYSIS COMPLETED AT THIS TIME. PT DID ONCE BECOME COMBATIVE WITH TECH AND NURSE WAS ABLE TO REDIRECT PT TO FINISH DIALYSIS.
--- NOTE | 2019-10-06 13:47 | PN ---
PATIENT:KAREEM KOROMA MEDICAL RECORD: [id number] LOCATION:[facility] ADMISSION DATE: 09/24/19 PROGRESS NOTE DATE OF SERVICE: 10/05/2019 SUBJECTIVE: The patient's case was discussed with staff. He has no new complaint. OBJECTIVE: The patient is compliant with medications today, but now not compliant with dialysis. Trying to convince him that he needs this has failed. He is insisting he had dialysis yesterday and does not need it today and even the pipe coverer was here and told him that was wrong, but he would not do it. ASSESSMENT: Dementia. PLAN: Current medicines will be maintained. He is only intermittently compliant with the medications. This patient is severely impaired cognitively. I am concerned that it may be necessary to discuss hospice care with his if he is not going to allow himself to be treated. TRANSINT:[id number] Voice Confirmation ID: [id number] DOCUMENT ID: [id number] RAPHAEL HERNANDEZ MD at 1347 CC: [id number] DICTATION DATE: 10/05/19 1449 CARDIAC REHABILITATION PROGRAM DIRECTOR: 10/05/191951 ADM IN [facility] [address] [place] [address]
--- NOTE | 2019-10-06 14:01 | NUR ---
SW SPOKE WITH PT'S ABOUT PT'S BEHAVIORS AND DISCHARGE PLANNING NEEDS. SW EXPLAINED OPTIONS FOR HOSPICE AND DIFFERENT LEVEL CARE FOR DISCHARGE SINCE THE PT IS FIGHTING DIALYSIS AND NOT WANTING TO DO IT ANYMORE. PT'S STATED SHE WILL FOLLOW UP WITH [facility] SPECIALIST ON WEDNESDAY AND GIVE A CLEAR DISCHARGE PLAN.
--- NOTE | 2019-10-06 19:56 | NUR ---
PATIENT IS VERY CONFUSED, ORIENTED TO SELF ONLY, CAN MAKE SIMPLE NEEDS KNOWN, HE ISOLATES SELF, PARANOID OF OTHERS, NOT COOPERATIVE, COMPLIANT WITH MEDS MOST OF THE TIME. NO SIDE EFFECTS NOTED. WILL MONITOR AND FOLLOW POC
[2019-10-06 20:00] VITALS: BP 173/75
--- NOTE | 2019-10-07 08:10 | NUR ---
REC'D PT SITTING IN CHAIR BY NURSES STATION. PT IS WITHDRAWN AND WATCHES PEERS AND STAFF MEMBERS. PT IS ALERT AND CONFUSED ORIENTED TO SELF ONLY. PT IS PARANOID ABOUT STAFF. PT CAN MAKE NEEDS KNOWN. PT SLEPT 8.5 HOURS. PT FSBS: 92 MG/DL. PT DOES NOT VOICE PARANOIA THOUGHTS. PT CAN AMBULATE BUT PREFERS TO SIT IN W/C. PT IS COMPLIANT WITH MEDS, VITALS AND ASSESSMENTS. WILL CONT PLAN OF CARE.
[2019-10-07 09:03] VITALS: BP 118/56
--- NOTE | 2019-10-07 12:44 | PN ---
PATIENT:KAREEM KOROMA MEDICAL RECORD: [id number] LOCATION:[facility] ADMISSION DATE: 09/24/19 PROGRESS NOTE DATE OF SERVICE: 10/06/2019 SUBJECTIVE: The patient's case was discussed with staff. He has no new complaint. OBJECTIVE: The patient is poorly organized and only partially oriented. He was receiving dialysis when I came to speak with him and he is constantly pulling at the various tubes and lines and the technician test systems in my opinion was exercising heroic virtue in her management of this patient by not only managing the hemodialysis unit, but continuously redirecting him. ASSESSMENT: Dementia. PLAN: The patient is in chronic renal failure and on dialysis. His intermittent refusal and agitation with the dialysis is one of the primary factors that have resulted in his admission here. He has dementia that is advanced. The reasons for the agitation are because of confusion. These behaviors are not going to be significantly impacted with what I can do for him pharmacologically. As to whether or not he can continue to have dialysis under these circumstances is something I will leave to his treatment supervisor and his family; however, it is my opinion that he is in need of palliative or hospice care with the purpose of the hospitalization here is to make him compliant with dialysis that is an unrealistic expectation given his condition. I have discussed this with the treatment team and those thoughts are going to be conveyed to his . I will meet with the treatment team again on Wednesday. TRANSINT:[id number] Voice Confirmation ID: [id number] DOCUMENT ID: [id number] RAPHAEL HERNANDEZ MD at 1244 CC: [id number] DICTATION DATE: 10/06/19 1422 ROBOTICS TECHNICIAN: 10/06/[address] [facility] [address] [place] [address]
[2019-10-07 20:00] VITALS: BP 164/101
--- NOTE | 2019-10-07 22:36 | NUR ---
B)RECEIVED PATIENT SITTING IN THE DAYROOM. GUARDED AND SITS WITH ARMS CROSSED AND WATCHES STAFF AND PEERS. UNABLE TO ASSESS ORIENTATION DUE TO PATIENT REFUSING TO TALK WITH NURSE. I)ADMINISTER MEDS AND MONITOR COMPLIANCE. ENCOURAGE PATIENT TO INTERACT WITH STAFF AND VOICE CONCERNS. R)MED COMPLIANT. CONTINUES TO AVOID INTERACTION WITH OTHERS. TRIED TO GO INTO ROOM 1121. EXPLAINED TO PATIENT HIS ROOM IS 1120. PATIENT ARGUED RELATING 1120 IS NOT HIS ROOM. P)CONTINUE POC AND PROVIDE SAFE ENVIRONMENT.
[2019-10-08 09:33] VITALS: BP 149/63
--- NOTE | 2019-10-08 10:03 | PN ---
PATIENT:KAREEM KOROMA MEDICAL RECORD: [id number] LOCATION:[facility] ADMISSION DATE: 09/24/19 PROGRESS NOTE DATE OF SERVICE: 10/07/2019 SUBJECTIVE: The patient's case was discussed with staff. He has no new complaint. OBJECTIVE: The patient is in good behavioral control, but confused. He was to have dialysis today. He terminated the treatment after 1 hour despite almost heroic efforts on the part of nursing staff to get him to comply. ASSESSMENT: Dementia. PLAN: Current medicines have been reviewed. It is my recommendation that he have hospice or palliative care if he is not going to submit to dialysis. This has been discussed with the , she is going to think about it. TRANSINT:[id number] Voice Confirmation ID: [id number] DOCUMENT ID: [id number] RAPHAEL HERNANDEZ MD at 1003 CC: [id number] DICTATION DATE: 10/07/19 1345 FIELD ARTILLERY TARGETING TECHNICIAN: 10/07/19 1752 ADM IN [facility] [address] [place] [address]
--- NOTE | 2019-10-08 12:00 | NUR ---
RECEIVED IN HALLWAY OUTSIDE OF NURSES STATION. CALM AND COOPERATIVE WITH CARE AND ASSESSMENT. NO BEHAVIORS TODAY. REDIRECT AND REORIENT NEEDED. EATING LUNCH AT THIS TIME. CONTINUE PLAN OF CARE.
[2019-10-08 15:22] VITALS: BP 124/55
--- NOTE | 2019-10-08 19:50 | NUR ---
RECEIVED IN DAYROOM. SITTING IN A CHAIR DURING GROUP. CALM AND COOPERATIVE WITH CARE AND ASSESSMENT. NO DELUSIONAL STATEMENTS MADE THIS EVENING. REDIRECT AND REORIENT NEEDED. CONTINUES TO SIT CALMLY IN DAYROOM. CONTINUE PLAN OF CARE.
[2019-10-08 20:00] VITALS: BP 96/45
[2019-10-09 09:39] VITALS: BP 187/71
--- NOTE | 2019-10-09 12:00 | NUR ---
RECEIVED IN HALLWAY OUTSIDE OF NURSES STATION. CALM AND COOPERATIVE WITH CARE AND ASSESSMENT. NO AGGRESSIVE BEHAVIORS TODAY. REDIRECT AND REORIENT NEEDED. EATING LUNCH AT THIS TIME. CONTINUE PLAN OF CARE.
[2019-10-09 12:38] LABS: ANION GAP 23.4 mmol/L (8-16); CALCIUM 8.3 mg/dL (8.5-10.1); CARBON DIOXIDE 21.9 mmol/L (21.0-32.0); CREATININE - SERUM 12.3 mg/dL (0.6-1.3); POTASSIUM - SERUM 4.3 mmol/L (3.5-5.1)
[2019-10-09 12:39] LABS: BASOPHILS 0.9 % (0-2); EOSINOPHILS 11.4 % (0-7); HEMATOCRIT 33.9 % (42.0-54.0); HEMOGLOBIN 11.2 g/dL (13.5-17.5); IMMATURE GRANULOCYTES 0.2 % (0-5); LYMPHOCYTES 32.1 % (15-50); MCH 31.2 pg (26.0-34.0); MCV 94.4 fL (80.0-100.0); MEAN PLATELET VOLUME 10.9 fL (7.4-10.4); NEUTROPHILS 47.4 % (40-80); PLATELET COUNT 152 10x3/uL (130-400); RBC 3.59 10x6/uL (4.20-6.10); RDW 15.3 % (11.5-14.5); WBC 5.5 10x3/uL (4.8-10.8)
--- NOTE | 2019-10-09 13:21 | PN ---
PATIENT:KAREEM KOROMA MEDICAL RECORD: [id number] LOCATION:[facility] ADMISSION DATE: 09/24/19 PROGRESS NOTE DATE OF SERVICE: 10/08/2019 SUBJECTIVE: The patient's case was discussed with staff. He has no new complaint. OBJECTIVE: The patient is impaired cognitively. He denies thoughts of harming himself or others. When asked about his dialysis yesterday, he says it went fine. When asked if the session was cut short or stopped at his request, he says no. ASSESSMENT: Dementia. PLAN: Current medicines and therapies have been reviewed and will be maintained. Long-term prognosis is guarded. TRANSINT:[id number] Voice Confirmation ID: [id number] DOCUMENT ID: [id number] RAPHAEL HERNANDEZ MD at 1321 CC: [id number] DICTATION DATE: 10/08/19 1127 VASCULAR TECHNOLOGIST: 10/08/19 1439 ADM IN [facility] [address] [place] [address]
--- NOTE | 2019-10-09 19:38 | NUR ---
RECEIVED IN DAYROOM. SITTING IN A WHEELCHAIR WITH PEERS AT HIS SIDE. CALM AND COOPERATIVE WITH CARE AND ASSESSMENT. NO DELUSIONAL STATEMENTS VOICED THIS EVENING. REDIRECT AND REORIENT NEEDED. RESTING IN WHEELCHAIR OUTSIDE OF NURSES STATION AT THIS TIME. CONTINUE PLAN OF CARE.
[2019-10-09 19:49] VITALS: BP 133/53
[2019-10-10 08:09] VITALS: BP 129/60
--- NOTE | 2019-10-10 10:30 | NUR ---
PT BROUGHT TO ROOM USED FOR DIALYSIS IN JAIL UNIT VIA WC BY PCT. 2 DIALYSIS NURSES IN ROOM FOR SAFETY CONCERNS FROM PREVIOIUS AGGRESSIVE BEHAVIOR. PATIENT REFUSED TREATMENT, PATIENT EDUCATED BY BOTH NURSES AND TRIED TO NEGOTIATE WITH SMALLER RUN TIMES, ETC, PATIENT ULTIMATELY REFUSED EVERY OPTION THAT LEAD TO DIALYSIS. REPORTED TO DR. YUAN THAT PATIENT CONTINUES TO REFUSE TREATMENT.
--- NOTE | 2019-10-10 11:30 | NUR ---
FSBS 173. 2 UNITS HUMALOG ADMINISTERED PER SLIDING SCALE.
--- NOTE | 2019-10-10 12:00 | NUR ---
RECEIVED IN HALLWAY OUTSIDE OF NURSES STATION. CALM AND COOPERATIVE WITH CARE AND ASSESSMENT. NO BEHAVIORS. REFUSED DIALYSIS TODAY. REDIRECT AND REORIENT NEEDED. EATING AT THIS TIME. CONTINUE PLAN OF CARE.
--- NOTE | 2019-10-10 13:18 | PN ---
PATIENT:KAREEM KOROMA MEDICAL RECORD: [id number] LOCATION:[facility] ADMISSION DATE: 09/24/19 PROGRESS NOTE DATE OF SERVICE: 10/09/2019 SUBJECTIVE: The patient's case was discussed with staff. He has no new complaint. OBJECTIVE: The patient denies intent to harm himself or others. He is tolerating his medications well. ASSESSMENT: Dementia. PLAN: Current medicines have been reviewed and will be maintained. His long-term prognosis is guarded. Both supportive and educational interventions were made. The patient's prognosis is unfortunately poor. TRANSINT:[id number] Voice Confirmation ID: [id number] DOCUMENT ID: [id number] RAPHAEL HERNANDEZ MD at 1318 CC: [id number] DICTATION DATE: 10/09/19 1519 LUMBER RACKER: 10/09/19 2237 ADM IN [place] [facility] [address] [place] [address]
--- NOTE | 2019-10-10 14:35 | NUR ---
, CHARGE NURSE DELMAR, AND THERAPIST PHYSICAL BAYLEE IN MEETING AT NURSES STATION AND MADE AWARE OF NURSING MESSAGE FROM . THIS PRICE CHANGER ASKED IF THE DIALYSIS TEAM WAS STILL HERE AND WOULD BRING PATIENT UP TO THE DESIGNATED ROOM AND THIS PRICE CHANGER WAS TOLD NO, THEY HAVE GONE BUT THEY WILL COME AGAIN TOMORROW AND TRY TO PROVIDE DIALYSIS. MESSAGE ACKNOWLEDGED AT THIS TIME.
--- NOTE | 2019-10-10 17:02 | NUR ---
fsbs 134. no insulin per sliding scale.
--- NOTE | 2019-10-10 19:43 | NUR ---
RECEIVED IN DAYROOM. SITTING IN A CHIAR WITH PEERS AT HIS SIDE. CALM AND COOPERATIVE WITH CARE AND ASSESSMENT. NO DELUSIONAL STATEMENTS MADE THIS EVENING. REDIRECT AND REORIENT NEEDED. CONTINUES TO SIT QUIETLY IN DAYROOM. CONTINUE PLAN OF CARE.
[2019-10-10 20:11] VITALS: BP 142/57
--- NOTE | 2019-10-11 07:39 | NUR ---
Sitting up in wheelchair.Refuses meds and dialysis.Cooperative with staff but does not want to continue with dialysis.
[2019-10-11 08:36] VITALS: BP 157/67
--- NOTE | 2019-10-11 13:35 | PN ---
PATIENT:KAREEM KOROMA MEDICAL RECORD: [id number] LOCATION:[facility] ADMISSION DATE: 09/24/19 PROGRESS NOTE DATE OF SERVICE: 10/10/2019 SUBJECTIVE: The patient's case was discussed with staff. He has no new complaint. OBJECTIVE: The patient is only partially oriented. His mood is flat. His affect is appropriate. He has limited insight about his situation. He generally is tolerating his medicines well. Unfortunately, he again refused dialysis for reasons that made no real sense. ASSESSMENT: Dementia. PLAN: The patient is intermittently refusing dialysis. He is noncompliant enough to where this is not going to be a feasible interaction. By that I mean he is not going to survive unless he has a dialysis consistently and longer. His has considered the situation and is agreeable to hospice care. He has been accepted by a local residential that will or can provide hospice. It is my opinion that he is appropriate for comfort care measures given his lack of cooperation and the advanced nature of the dementia. TRANSINT:[id number] Voice Confirmation ID: [id number] DOCUMENT ID: [id number] RAPHAEL HERNANDEZ MD at 1335 CC: [id number] DICTATION DATE: 10/10/19 1538 ASSISTANT PROSECUTING ATTORNEY: 10/11/19 0049 ADM IN [facility] [place] [id number] [place] [address]
--- NOTE | 2019-10-11 14:07 | NUR ---
PT SITTING IN DAYAREA. PT DID ALLOW DIALYSIS FOR 30 OR 45 MINS. HE DID NOT WANT TO CONTINUE ANY FURTHER THAN THAT. PT DID NOT TAKE A.M. MEDICATIONS. PT HARDLY MAKES ANY NEEDS KNOWN BUT CAN. PT REQUIRES 1X ASSIST WITH ADLS. PT IS PARANOIA WITH STAFF AND PEERS. BEHAVIORS REPORTED WITH PREVIOUS SHIFT AND NOTED WITH THIS SHIFT. PT DOES NOT WANT TO TAKE MEDS OR DIALYSIS. CHAIR ALARM IN PLACE AND ACTIVE. WILL CONT TO MONITOR. WILL CONT PLAN OF CARE.
[2019-10-11 17:30] LABS: BASOPHILS 0.6 % (0-2); EOSINOPHILS 10.9 % (0-7); HEMATOCRIT 32.2 % (42.0-54.0); HEMOGLOBIN 10.5 g/dL (13.5-17.5); IMMATURE GRANULOCYTES 0.2 % (0-5); LYMPHOCYTES 23.7 % (15-50); MCH 30.5 pg (26.0-34.0); MCHC 32.6 g/dL (31.0-37.0); MCV 93.6 fL (80.0-100.0); MEAN PLATELET VOLUME 10.9 fL (7.4-10.4); NEUTROPHILS 58.6 % (40-80); PLATELET COUNT 134 10x3/uL (130-400); RBC 3.44 10x6/uL (4.20-6.10); RDW 15.3 % (11.5-14.5); WBC 5.3 10x3/uL (4.8-10.8)
[2019-10-11 17:43] LABS: ANION GAP 20.7 mmol/L (8-16); CALCIUM 7.8 mg/dL (8.5-10.1); CARBON DIOXIDE 23.4 mmol/L (21.0-32.0); CREATININE - SERUM 13.3 mg/dL (0.6-1.3); POTASSIUM - SERUM 4.1 mmol/L (3.5-5.1)
--- NOTE | 2019-10-11 18:15 | NUR ---
NOTIFIED DR. RANDHAWA ON CRITICAL LAB RESULTS. BUN 143. NO NEW ORDERS: CONTINUE DIALYSIS.
--- NOTE | 2019-10-11 19:10 | NUR ---
HAS BEEN COMPLIANT WITH STAFF AND MEDS.DOES QUESTION EACH MED AND HAS TO BE ENCOURAGED TO TAKE MEDS.PROPELLS SELF IN WHEELCHAIR.QUITE.WILL CONTINUE WITH CURRENT PLAN OF CARE.
[2019-10-11 20:03] VITALS: BP 153/59
--- NOTE | 2019-10-11 21:07 | NUR ---
PATIENT HAS A FLAT AFFECT, HE ISOLATES HIMSELF, MAKES SIMPLE NEEDS KNOWN, TOOK MEDS THIS EVENING WITHOUT HAVING TO "BEG" HIM. NO ADVERSE REACTION NOTED. WILL FOLLOW POC AND MONITOR THROUGHOUT SHIFT.
--- NOTE | 2019-10-12 13:33 | NUR ---
Nutrition Follow-up: PO intake continues to fluctuate. Ate 25-90% of meals yesterday. Partial HD yesterday. Noted hospice consulted. Diet: Renal Carb Consistent, Nepro daily PO intake: 64% avg x 9 meals WT: 149.8# (10/07); 153# (09/30); 145.8# (09/23) Last BM: 10/10 Labs reviewed Meds noted: Protonix, Phoslo, Humalog, Carafate, vitamin D, Lantus, Folate -Encourage PO intake and honor food preferences within diet restrictions. -Monitor wt. -RD following.
--- NOTE | 2019-10-12 14:01 | PN ---
PATIENT:KAREEM KOROMA MEDICAL RECORD: [id number] LOCATION:[facility] ADMISSION DATE: 09/24/19 PROGRESS NOTE DATE OF SERVICE: 10/11/2019 SUBJECTIVE: The patient's case was discussed with staff. He has no new complaint. OBJECTIVE: The patient is disorganized and impaired cognitively. Once again today, he stopped dialysis with only about a third of the treatment being completed. ASSESSMENT: Dementia. PLAN: It is my recommendation that the patient go into hospice care. He is not cooperating with life-saving treatment and is extremely impaired cognitively. His long-term prognosis is exceedingly poor. His quality of life is poor and he is not cooperative with dialysis for reasons that are not making sense. TRANSINT:[id number] Voice Confirmation ID: [id number] DOCUMENT ID: [id number] RAPHAEL HERNANDEZ MD at 1401 CC: [id number] DICTATION DATE: 10/11/19 1519 MARBLE AND GRANITE POLISHER: 10/12/19 0107 [facility] IN [facility] [address] [place] [address]
--- NOTE | 2019-10-12 15:05 | NUR ---
PT SPEAKING WITH HOSPICE NURSE AT THIS TIME. PT HAS BEEN SMILING WITH STAFF THIS SHIFT. PT IS CONFUSED DISORIENTED. REDIRECT AND REORIENT NEEDED. PT WAS COMPLIANT WITH MEDS, VITALS AND ASSESSEMENTS. PT REQUIRES 1X ASSIST FOR ADLS. CHAIR ALARM IN PLACE AND ACTIVE. CAN MAKE SOME NEEDS KNOWN. PT AT TIMES REFUSES TO TAKE MEDS AT TIMES. WILL CONT PLAN OF CARE.
[2019-10-12 16:03] VITALS: BP 156/57
--- NOTE | 2019-10-12 18:10 | NUR ---
PT CONFUSED AND ORIENTED TO SELF ONLY. PT SMILES AT STAFF BUT DOES NOT ACKNOWLEDGE. COMPLAINT WITH MEDS, VITALS AND ASSESSMENT THIS SHIFT. CHAIR ALARM IN PLACE AND ACTIVE. WILL CONT TO MONITOR.
[2019-10-12 20:00] VITALS: BP 151/60
--- NOTE | 2019-10-12 22:18 | NUR ---
B)RECEIVED PATIENT SITTING IN THE DAYROOM. PLEASANT AND COOPERATIVE WITH STAFF WHEN APPROACHED. DOES NOT INTERACT WITH PEERS. GUARDED AND SITS WITH ARMS CROSSED. SMILES WHEN TALKING WITH NURSE. USUALLY DOES NOT WANT TO GO TO BED HOWEVER WILL SIT IN WHEELCHAIR AND SLEEP. I)ADMINISTER MEDS AND MONITOR COMPLIANCE. R)MED COMPLIANT. PATIENT EVEN TOOK SS INSULIN. P)CONTINUE POC AND PROVIDE SAFE ENVIRONMENT.
[2019-10-13 09:50] VITALS: BP 137/64
--- NOTE | 2019-10-13 10:47 | NUR ---
PT SITTING AT TABLE IN DAY AREA AT THIS TIME. PT IS ALERT AND ORIENTED TO SELF ONLY. CONFUSION NOTED. PT DOES NOT SOCIALIZE WITH PEERS. PT WATCHES OTHER PTS. PT IS COMPLIANT WITH MEDS, VITALS AND ASSESSMENTS. PT REQUIRES 1X ASSIST WITH ADLS. PT SMILES AND IS PLESANT WITH STAFF. TRACE EDEMA NOTED TO BILATERAL EXTS. BRUIT AND TRILL NOTED TO FISTULA. WNL AND DRY AND INTACT. CHAIR ALARM IN PLACE AND ACTIVE. WILL CONT PLAN OF CARE.
--- NOTE | 2019-10-13 17:57 | NUR ---
Spoke to the patient's brother and he wanted to know "Can someone please talk to him and talk him into taking dialysis?" He said he would like his son to speak to him and talk him into taking dialysis. Explained to him that he can have anyone speak to him at the alotted phone call times.
[2019-10-13 20:00] VITALS: BP 168/60
--- NOTE | 2019-10-13 21:37 | NUR ---
B.) PT IS ALERT AND ORIENTED TO SELF ONLY. HE IS RECEIVED IN THE HALLWAY OUTSIDE OF THE NURSES STATION. HE IS SELF ISOLATING AND REFUSED HIS FSBS. HE IS USING HIS WHEELCHAIR TO ASSIST WITH AMBULATION. I.) PROVIDED PM MEDICATIONS PRESCRIBED. REDIRECT OFTEN. R.) COMPLIANT WITH ALL MEDICATIONS EXCEPT INSULIN. P.) WILL CONTINUE TO MONITOR.
--- NOTE | 2019-10-14 07:38 | NUR ---
The patient is awake and he is smiling this am, he knows his name, says he is fine, but he has poor insight into his situation. He can self propel in his w/c. Provide prescribed meds. He has not shown any aggression or hallucinations this am. Continue POC.
[2019-10-14 08:09] VITALS: BP 154/73
[2019-10-14 20:00] VITALS: BP 193/72
--- NOTE | 2019-10-14 22:26 | NUR ---
B.) PT IS ALERT AND ORIENTED TO SELF ONLY. HE HAS POOR INSIGHT INTO HIS SITUATION AT THIS TIME. HE IS USING A WHEELCHAIR TO ASSIST WITH AMBULATION. HE IS SELF ISOLATED AND REMAINS WITHDRAWN. HIS AFFECT IS NONCONGRUENT WITH HIS BEHAVIORS. I.) PROVIDED PM MEDICATIONS PRESCRIBED. REDIRECT OFTEN. R.) COMPLIANT WITH ALL MEDICATIONS. DIFFICULT TO REDIRECT AT TIMES. \ P.) WILL CONTINUE TO MONITOR.
[2019-10-15 08:34] VITALS: BP 177/72
--- NOTE | 2019-10-15 14:06 | NUR ---
RECEIVED SITTING UP IN WHEELCHAIR THIS AM.IS ORIENTED TO SELF,KNOWS HE IS IN THE HOSPITAL,MONTH AND YEAR.PLEASANT AND COMPLIANT WITH STAFF.PROPELLS SELF IN WHEELCHAIR.WILL CONTINUE WITH CURRENT PLAN OF CARE.
--- NOTE | 2019-10-15 18:22 | NUR ---
The patient's spouse called and she wanted to talk to the patient, but he did not want to talk to her. She had staff hold the phone up to his ear and she said "I want you to take dialysis." I spoke to the patient's spouse and she said she spoke to a gentleman that came from Hospice and she said she has decided not to put Nicholas on Hospice and she wants Nicholas to have dialysis. Explained to her that "We can't talk him into it." She said "No, I don't want you talk him into it, if he refuses that's ok, but once he [facility] to [facility] then we will talk him into it over here because we were told that if he does not take dialysis he will within 2 weeks and we do not want him to , it is most important to us that he live." Explained to her that I will let the rest of the treatment team be aware.
--- NOTE | 2019-10-15 19:45 | NUR ---
RECEIVED IN DAYROOM. SITTING QUIETLY IN WHEELCHAIR. CALM AND COOPERATIVE WITH CARE AND ASSESSMENT. NO DELUSIONAL STATEMENTS. REDIRECT AND REORIENT NEEDED. IN PATIENT ROOM AT THIS TIME WITH [facility]. CONTINUE PLAN OF CARE.
[2019-10-15 20:04] VITALS: BP 195/79
--- NOTE | 2019-10-15 22:11 | NUR ---
REFUSED ALL PM MEDS.
--- NOTE | 2019-10-16 05:08 | NUR ---
PT VOMITING. BP 219/97 HR 100 AXILLARY TEMP 99.1 O2 SAT 93%. ADMINISTERED CATAPRESS PRN PO. WILL CONTINUE TO MONITOR.
[2019-10-16 05:32] VITALS: BP 219/97
[2019-10-16 07:40] VITALS: BP 122/58
--- NOTE | 2019-10-16 12:00 | NUR ---
RECEIVED IN HALLWAY OUTSIDE OF NURSES STATION. CALM AND COOPERATIVE WITH CARE AND ASSESSMENT. NO BEHAVIORS. REFUSED AM LAB DRAW AND AM MEDICATIONS. REDIRECT AND REORIENT NEEDED. EATING LUNCH AT THIS TIME. CONTINUE PLAN OF CARE.
--- NOTE | 2019-10-16 12:04 | PN ---
PATIENT:KAREEM KOROMA MEDICAL RECORD: [id number] LOCATION:[facility] ADMISSION DATE: 09/24/19 PROGRESS NOTE DATE OF SERVICE: 10/12/2019 SUBJECTIVE: The patient's case was discussed with staff. He has no new complaint. OBJECTIVE: The patient is quite confused and impaired. He is not overtly aggressive. ASSESSMENT: Dementia. PLAN: Current medicines have been reviewed and will be maintained. Long-term prognosis is guarded. I think hospice is an appropriate referral for him. TRANSINT:[id number] Voice Confirmation ID: [id number] DOCUMENT ID: [id number] RAPHAEL HERNANDEZ MD at 1204 CC: [id number] DICTATION DATE: 10/12/19 1557 PROPERTY HANDLER: 10/12/19 1753 ADM IN [facility] [address] [place] [address]
[2019-10-16 18:44] LABS: BASOPHILS 0.2 % (0-2); EOSINOPHILS 0.9 % (0-7); HEMATOCRIT 34.7 % (42.0-54.0); HEMOGLOBIN 11.8 g/dL (13.5-17.5); IMMATURE GRANULOCYTES 0.3 % (0-5); MCH 30.8 pg (26.0-34.0); MCV 90.6 fL (80.0-100.0); MEAN PLATELET VOLUME 10.2 fL (7.4-10.4); NEUTROPHILS 83.6 % (40-80); RBC 3.83 10x6/uL (4.20-6.10); RDW 15.8 % (11.5-14.5); WBC 10.9 10x3/uL (4.8-10.8)
--- NOTE | 2019-10-16 18:58 | NUR ---
ZOFRAN 4MG GIVEN FOR C/O NAUSEA.REFUSED EARLIER.
[2019-10-16 19:06] LABS: ALBUMIN 3.3 g/dL (3.4-5.0); ANION GAP 31.9 mmol/L (8-16); BILIRUBIN - TOTAL 0.34 mg/dL (0.2-1.3); CALCIUM 8.8 mg/dL (8.5-10.1); CARBON DIOXIDE 15.9 mmol/L (21.0-32.0); CREATININE - SERUM 19.8 mg/dL (0.6-1.3); POTASSIUM - SERUM 4.8 mmol/L (3.5-5.1); PROTEIN - SERUM 6.7 g/dL (6.4-8.2)
[2019-10-16 19:07] LABS: PLATELET COUNT 184 10x3/uL (130-400)
--- NOTE | 2019-10-16 19:49 | NUR ---
RECEIVED IN HALLWAY OUTSIDE OF NURSES STATION. TALKING TO HIS ON THE PHONE. CALM AND COOPERATIVE WITH CARE AND ASSESSMENT. NO DELSUIONAL STATEMENTS MADE THIS EVENING. SITTING QUIETLY IN HIS ROOM AT THIS TIME. CONTINUE PLAN OF CARE.
[2019-10-16 20:58] VITALS: BP 187/94
--- NOTE | 2019-10-16 23:04 | NUR ---
KICKING AT STAFF. UNABLE TO REDIRECT. VERY CONFUSED. PRN GEODON 10 MG IM GIVEN FOR AGITATION. CONTINUE TO MONITOR.
--- NOTE | 2019-10-17 00:03 | NUR ---
RESTING EYES CLOSED AT THIS TIME.
[2019-10-17 08:04] VITALS: BP 184/85
--- NOTE | 2019-10-17 09:53 | NUR ---
SW SPOKE TO ABOUT DISCHARGE PLANS. PT WILL BE GOING TO [place] TOMORROW. PT WILL BE DISCHARGING WITH HOSPICE. PT'S VERBALIZED UNDERSTANDING OF DISCUSSION AND DISCHARGE PLANS.
--- NOTE | 2019-10-17 15:00 | PN ---
PATIENT:KAREEM KOROMA MEDICAL RECORD: [id number] LOCATION:[facility] ADMISSION DATE: 09/24/19 PROGRESS NOTE DATE OF SERVICE: 10/16/2019 SUBJECTIVE: The patient's case was discussed with staff. He has no new complaint. OBJECTIVE: The patient is not eating very well. He has refused dialysis, refused lab, and intermittently refused medications. His dementia is very advanced. He is usually only oriented to person. His had agreed to place him in hospice, but now he is having second thoughts. At this point, the patient will be maintained on current medications and I continue to believe that hospice is the most appropriate setting for this individual. TRANSINT:[id number] Voice Confirmation ID: [id number] DOCUMENT ID: [id number] RAPHAEL HERNANDEZ MD at 1500 CC: [id number] DICTATION DATE: 10/16/19 1258 WET PROCESS MILLER HEAD ASSISTANT: 10/16/19 1312 ADM IN [facility] [address] [place] [address]
--- NOTE | 2019-10-17 17:00 | NUR ---
RECEIVED IN HALLWAY OUTSIDE OF NURSES STATION. CALM AND COOPERATIVE WITH CARE AND ASSESSMENT. NO BEHAVIORS TODAY. REDIRECT AND REORIENT NEEDED. EATING AT THIS TIME. CONTINUE PLAN OF CARE.
--- NOTE | 2019-10-17 19:52 | NUR ---
RECEIVED IN DAYROOM. SITTING IN A WHEELCHAIR KEEPING TO HIMSELF. CALM AND COOPERATIVE WITH CARE AND ASSESSMENT. NO DELSIONAL STATEMENTS VOICED. REDIRECT AND REORIENT NEEDED. CONTINUES TO SIT CALMLY IN DAYROOM. CONTINUE PLAN OF CARE.
[2019-10-17 20:09] VITALS: BP 170/78
--- NOTE | 2019-10-18 08:44 | NUR ---
LATE NOTE FROM 10/16 SW SPOKE WITH ABOUT PT'S CONDITION AND PT REFUSING TREATMENT. SW WENT OVER THE BENEFITS OF HOSPICE AND SHE STATED SHE DOESN'T WANT HOSPICE ANYMORE. SHE REPORTED SHE WANTS HIM TO GO TO [facility]. SHE STATED SOMEONE WOULD BE AT HER HOUSE AT 1PM TO SIGN PAPERWORK. SW CONTACTED [facility] AND SHE STATED PT'S WAS SUPPOSED TO BE AT THE FACILITY BY 1PM. SHE STATED THEY WILL SEND SOMEONE OUT TO HER BUT IF SHE DOENS'T PRODUCE THE PPW THEY NEED THEY CANNOT ACCEPT PT.
--- NOTE | 2019-10-18 10:00 | NUR ---
PT'S STATED SHE IS GOING TO MEET WITH [facility] AT 11 TODAY. SHE ALSO STATED SHE WANTS THE PT TO BE PLACED ON [facility] DUE TO PT'S DECLINE.
[2019-10-18 10:06] VITALS: BP 166/82
--- NOTE | 2019-10-18 12:01 | NUR ---
CHADD CALLED TO CONFIRM HOW THE MEETING WENT WITH TRAN. PT'S STATED [facility] HAS RECIEVED THE FINANCIAL PIECE AND WILL BE CONTACTING CHADD.
--- NOTE | 2019-10-18 13:58 | NUR ---
The patient is groggy today, he is pleasant and calm. He had a bloody nose and he kept picking it and the blood got on his jacket. He is very confused. He yelled out a lot. He has not wanted to eat. Only ate a couple of bites. Provide prescribed meds. The patient is compliant with meds. Continue POC.
--- NOTE | 2019-10-18 14:51 | PN ---
PATIENT:KAREEM KOROMA MEDICAL RECORD: [id number] LOCATION:[facility] ADMISSION DATE: 09/24/19 PROGRESS NOTE DATE OF SERVICE: 10/17/2019 SUBJECTIVE: The patient's case was discussed with staff. He has no new complaint. OBJECTIVE: The patient is disorganized and partially oriented. He is compliant with his medications today. He did receive p.r.n. medication because of agitation yesterday. He is still not allowing dialysis. His BUN is 235 from yesterday and his creatinine is almost 20. ASSESSMENT: Dementia. PLAN: The patient will be maintained on current medications with the exception of the Trilafon, which will be discontinued. I am going to give him a low dose of Seroquel to assist with sleep consolidation. His long-term prognosis is exceedingly poor and it appears unlikely that anything is going to happen that would change that. TRANSINT:[id number] Voice Confirmation ID: [id number] DOCUMENT ID: [id number] RAPHAEL HERNANDEZ MD at 1451 CC: [id number] DICTATION DATE: 10/17/19 1503 EMERGENCY MANAGEMENT COORDINATOR: 10/17/19 2231 ADM IN [facility] [address] [place] [address]
[2019-10-18] MEDS ORDERED: PROCARDIA XL PO (16:20)
[2019-10-18] MEDS ORDERED: CARDURA2 MG PO (16:21)
[2019-10-18] MEDS ORDERED: PROTONIX40 MG PO (16:22)
[2019-10-18] MEDS ORDERED: CELEXA20 MG PO (16:22)
[2019-10-18] MEDS ORDERED: VITAMIN D5000 UNI1 PO (16:23)
[2019-10-18 17:40] LABS: BASOPHILS 0.1 % (0-2); EOSINOPHILS 0.1 % (0-7); HEMOGLOBIN 9.9 g/dL (13.5-17.5); IMMATURE GRANULOCYTES 0.2 % (0-5); LYMPHOCYTES 2.9 % (15-50); MCH 30.3 pg (26.0-34.0); MCHC 34.1 g/dL (31.0-37.0); MCV 88.7 fL (80.0-100.0); MEAN PLATELET VOLUME 10.4 fL (7.4-10.4); MONOCYTES 4.5 % (2-11); NEUTROPHILS 92.2 % (40-80); RBC 3.27 10x6/uL (4.20-6.10); WBC 10.4 10x3/uL (4.8-10.8)
[2019-10-18 17:41] LABS: PLATELET COUNT 108 10x3/uL (130-400)
[2019-10-18 18:00] LABS: ANION GAP 31.8 mmol/L (8-16); CALCIUM 8.8 mg/dL (8.5-10.1); CARBON DIOXIDE 15.7 mmol/L (21.0-32.0); POTASSIUM - SERUM 5.5 mmol/L (3.5-5.1)
[2019-10-18 18:01] LABS: CREATININE - SERUM 23.6 mg/dL (0.6-1.3)
[2019-10-18 20:11] VITALS: BP 177/87
--- NOTE | 2019-10-18 20:49 | NUR ---
B.) PT IS ALERT AND ORIENTED TO SELF ONLY. HE IS RECEIVED IN THE DAYROOM IN A GERICHAIR. HE IS YELLING OUT FOR HELP AND EXPERIENCING VISUAL HALLUCINATIONS. HE ATTEMPTED TO THROW HIMSELF INTO THE FLOOR AND ROLL AROUND. HE IS SPITTING UP MUCUS IN THE FLOOR. I.) PROVIDED PM MEDICATIONS. REDIRECT OFTEN. ASSISTED HIM SAFELY TO THE FLOOR ON A FALL MAT. R.) NON COMPLIANT WITH MEDICATIONS. HE SPIT THEM AT STAFF. PT IS RESTING CALMLY AND SAFELY ON THE FLOOR. P.) WILL CONTINUE TO MONITOR.
--- NOTE | 2019-10-18 21:49 | NUR ---
PT IS YELLING OUT AND ATTEMPTING TO ROLL OUT OF CHAIR INTO FLOOR. HE IS HYSTERICAL IN HIS BEHAVIOR IMPOSSIBLE TO REDIRECT. PROVIDED PRJuliana EWING. WILL CONTINUE TO MONITOR.
--- NOTE | 2019-10-18 22:15 | NUR ---
PT RESTING CALMLY IN THE MISHRA IN A GERICHAIR WITH EYES CLOSED. NO DISTRESS NOTED. WILL CONTINUE TO MONITOR.
--- NOTE | 2019-10-19 07:50 | NUR ---
PT VITALS SIGNS: B/P: 198/106, P: 91, T: 97.7, R: 16, O2 SAT: 90%. PT IS REFUSING ALL MEDICATIONS. WILL NOTIFIED DR. RANDHAWA OF VITALS SIGNS.
--- NOTE | 2019-10-19 07:55 | NUR ---
PAGED DR. RANDHAWA. NOTIFIED DR. RANDHAWA OF VITALS SIGNS. NO NEW ORDERS.
[2019-10-19 08:33] VITALS: BP 198/106
--- NOTE | 2019-10-19 09:40 | NUR ---
hospice nurse here to see pt. recent labs and vitals given to nurse. awaiting acceptance or denial.
--- NOTE | 2019-10-19 11:20 | NUR ---
pt accepted by hospice.
--- NOTE | 2019-10-19 12:38 | NUR ---
spoke with pts brother at this time. he said he spoke with his and he was accepted by hospice and he wanted to know of he had to wear a mask to see him. nurse explained that once he leaves the facility here that he would have no call the hospice facility to get update information related to visits and masks. he asked if [place] had a inpatient facility here. nurse explained to get more direct information he would have to speak to inpatient hospice. he thanked nurse.
--- NOTE | 2019-10-19 13:47 | NUR ---
Nutrition Follow-up: Pt refusing meals. No longer receiving dialysis. Accepted to hospice. Diet: Renal Carb Consistent, Nepro 1/day PO intake: 0% x 6 meals Wt: 167# (10/14); 149.8# (10/07); 153# (09/30); 145.8# (09/24) Labs noted (10/17): K+ 5.5, Glu 116 Meds noted: Protonix, Phoslo, Humalog, Carafate, vitamin D, Lantus, Folate -RD following and available to assist as needed.
--- NOTE | 2019-10-19 14:15 | NUR ---
DISCHARGED TO [facility]BULANCE.ALL PERSONAL ITEMS SENT WITH HIM.
--- NOTE | 2019-10-19 14:33 | NUR ---
RECEIVED THIS AM IN RECLINER AT NURSES STATION. ORIENTED TO SELF AND KNOWS HE IS IN HOSPITAL.REFUSING DIALYSIS AND MEDS.HE IS CALM AT PRESENT TIME AND REST WITH EYES CLOSED.DOES AROUSE EASILY TO HIS NAME.WILL CONTINUE WITH CURRENT PLAN OF CARE,MONITOR FOR CHANGES AND SAFETY.
--- NOTE | 2019-10-19 14:39 | PN ---
PATIENT:KAREEM KOROMA MEDICAL RECORD: [id number] LOCATION:[facility] ADMISSION DATE: 09/24/19 PROGRESS NOTE DATE OF SERVICE: 10/18/2019 SUBJECTIVE: The patient's case was discussed with staff. He has no new complaint. OBJECTIVE: The patient is oriented only to person. He is sedated or obtunded in appearance. He has not had dialysis for some time. He is arousable, but quite confused. ASSESSMENT: Dementia. PLAN: I think that there is little I can do for this patient from a dementia standpoint. Right now his medical needs, which are being addressed by others are taking precedent. Clearly, he is not going to survive if he does not receive dialysis and that has been stopped secondary to his refusal to allow it and his combativeness with the techs, who were providing it. Also, he has an advanced dementia that was the cause of this noncompliant behavior. I am going to check a baseline set of labs today and I am in agreement with the referral to hospice. The is distressed but understanding of the situation. TRANSINT:[id number] Voice Confirmation ID: [id number] DOCUMENT ID: [id number] RAPHAEL HERNANDEZ MD at 1439 CC: [id number] DICTATION DATE: 10/18/19 1618 MANAGER UTILIZATION MANAGEMENT: 10/19/19 0204 ADM IN [facility] [address] [place] [address]
--- NOTE | 2019-10-19 14:40 | NUR ---
PT DISCHARGED TO [facility]. PT TRANSPORTED VIA [email or web address]. 2X ASSISTANCE FOR TRANFSER. PT WAS MUMBLING SOMETHING AT TIME OF DISCHARGE. PT TOELRATED TRANSFER WELL. REPORT CALLED WE[facility] AND DISCHARGE PHONE CALL [facility].PAPERWORK FAXED AND PAPER COPY SENT [facility]. ATTEMPTED TO NOTIFY OF PT DISCHARGING. PHONE WENT STRAIGHT TO [employer].
== END 2019-10-19 14:50 | disposition hospice, inpatient (51) | DRG 56 ==
LOC: D.PSYCH 20:45
PROVIDERS: Internal Medicine; Internal Medicine Nephrology; ADMIT Psychiatry & Neurology Psychiatry; ATTEND Psychiatry & Neurology Psychiatry
DX: G30.1 Alzheimer's disease with late onset (principal); N18.6 End stage renal disease; F02.81 Dementia in other diseases classified elsewhere, unspecified severity, with behavioral disturbance; I13.2 Hypertensive heart and chronic kidney disease with heart failure and with stage 5 chronic kidney disease, or end stage renal disease; E11.22 Type 2 diabetes mellitus with diabetic chronic kidney disease; I50.9 Heart failure, unspecified; Z99.2 Dependence on renal dialysis; Z91.15 Patient's noncompliance with renal dialysis; I25.10 Atherosclerotic heart disease of native coronary artery without angina pectoris; M19.90 Unspecified osteoarthritis, unspecified site; K21.9 Gastro-esophageal reflux disease without esophagitis; G40.909 Epilepsy, unspecified, not intractable, without status epilepticus; E55.9 Vitamin D deficiency, unspecified; D63.1 Anemia in chronic kidney disease; F41.8 Other specified anxiety disorders